=== PATIENT | male | born 1950 | race Caucasian/White ===

== ENCOUNTER 2020-07-27 10:08 | Inpatient (IN) ==
[2020-07-27] MEDS ORDERED: IPRATROPIUM/ALBUTEROL 3 ML AMPUL.NEB NEB ONE ×2 (10:18→12:59)
[2020-07-27] MEDS ORDERED: methylPREDNISolone SOD SUCC 125 MG/2 ML VIAL IV ONE (10:18)
[2020-07-27] MEDS ORDERED: ALBUTEROL SULFATE 2.5 MG/3 ML NEBULIZER NEB ONE (10:18)
--- NOTE | 2020-07-27 10:25 | Emergency Department Note ---
SOB HPI General Chief Complaint: Shortness of Breath/Dyspnea Stated Complaint: shortness of breath Time Seen by Provider: 07/27/20 10:18 Source: patient Mode of arrival: ambulatory Limitations: no limitations History of Present Illness HPI Narrative: Patient is a 70-year-old gentleman who arrives emergency department complaining of shortness of breath. The patient says he has been feeling short of breath since yesterday. This is gradual in onset and has been progressively worsening. He has had a productive cough and pleuritic chest pain associated with this. He denies any fever or chills. He has had similar symptoms in the past due to his COPD. He tried using his home nebulizer without any improvement in his symptoms and due to the worsening nature of his symptoms he decided to come in for further evaluation. He has received both doses of his Covid vaccine. Related Data Allergies Allergy/AdvReac Type Severity Reaction Status Date / Time No Known Drug Allergies Allergy Verified 07/27/20 10:16 Review of Systems ROS ROS Narrative: Narrative: All systems ED: reviewed and negative except as stated. Gastrointestinal: Denies abdominal pain, nausea and diarrhea PFSH Narrative Patient History Narrative: Narrative: Medical/Surgical/Family History All Active Problems (Updated 07/27/20 @ 16:58 by Elijah Shi DO) Community acquired pneumonia (Acute) Medical History (Updated 07/27/20 @ 16:58 by Elijah Shi DO) COPD (chronic obstructive pulmonary disease) Social History Smoking Status: Former smoker Alcohol Intake Frequency: former alcohol drinker Substance Use: marijuana Exam Narrative Narrative: Gen -patient is awake and alert and in moderate distress. HEENT -head is atraumatic. There is no conjunctival pallor or scleral icterus. CV -S1-S2 tachycardic and regular. Peripheral pulses are palpable. Resp -breathing is moderately labored while on supplemental oxygen via simple mask. Patient has tachypnea and accessory muscle use and is only able to speak a few words at a time. Lungs have diminished air entry bilaterally. There is no cyanosis. GI - Abdomen is soft and nontender to palpation. There is no guarding or rebound tenderness. Derm -skin is warm and dry. MSK -present extremities are atraumatic. Psych -patient has appropriate affect. Neuro -patient answers questions appropriately with fluent speech. Patient moves all present extremities equally. General Limitations: no limitations Course Vital Signs Vital signs: Vital Signs Temperature 99.4 F H 07/27/20 10:09 Pulse Rate 135 H 07/27/20 10:09 Respiratory Rate 38 H 07/27/20 10:09 Blood Pressure 202/157 07/27/20 10:09 Pulse Oximetry (%) 87 L 07/27/20 10:09 Temperature 99.4 F H 07/27/20 10:09 Pulse Rate 99 H 07/27/20 15:51 Respiratory Rate 28 H 07/27/20 15:51 Blood Pressure 96/67 07/27/20 15:01 Pulse Oximetry (%) 96 07/27/20 15:51 MDM MDM Narrative Medical decision making narrative: Patient presents with shortness of breath. He initially had significantly increased work of breathing so he started on BiPAP and given inline nebulizer treatments with significant improvement in his symptoms. He was then taken off BiPAP remains somewhat tachypneic but appears comfortable and stable from a respiratory standpoint at that time. X-ray reve als a large upper lobe infiltrate. Labs remarkable for leukocytosis. Patient was started on Rocephin and azithromycin for community-acquired pneumonia. Given his dog's diagnosis of coccidiomycosis and the fact that he does have an upper lobe infiltrate I also added fluconazole for possible Coccidioides coverage. Patient does not have any known risk factors for tuberculosis other than a brief trip to [facility] earlier this year. I discussed the test results with the patient and he is agreeable with plan for admission. I discussed the patient's history examination and diagnostic findings with Dr. Saucedo, who agrees with the plan of care and accepts admission. Critical care time I provided at least 35 minutes of critical care time. This was separate from any separately billable procedures. The patient was given supplemental oxygen to treat his hypoxemic respiratory failure. He was placed on bilevel positive pressure ventilation and this was titrated due to his increased work of breathing. He was given IV antibiotics and antifungals to treat the cause of pneumonia and IV fluids to treat sepsis. The patient was closely monitored for response to treatment and stability of vital signs throughout their emergency department stay. Lab Data Lab results reviewed: Yes I reviewed the patient's lab results. Result diagrams: 07/27/20 10:30 Labs: Lab Results 07/27/20 07/27/20 07/27/20 Range/Units 10:29 10:29 10:29 WBC (4.5-11.0) K/mcL RBC (4.50-5.90) M/mcL Hgb (13.5-16.5) g/dL Hct (41.0-55.0) % POC Hct 53 (41-55) % MCV (80.0-100.0) fL MCH (26.0-34.0) pg MCHC (31.0-36.0) g/dL RDW (11.5-14.5) % Plt Count (140-440) K/mcL MPV (7.4-10.4) fL Neut % (Auto) (38.0-78.0) % Lymph % (Auto) (15.0-49.0) % Clare % (Auto) (1.0-12.0) % Eos % (Auto) (0.0-7.0) % Baso % (Auto) (0.0-2.0) % Lymph # (Auto) (1.50-4.80) K/mcL Clare # (Auto) (0.10-0.90) K/mcL Eos # (Auto) (0.00-0.70) K/mcL Baso # (Auto) (0.00-0.20) K/mcL Absolute Neutrophils (1.80-8.00) K/mcL POC Sodium 134 (133-145) mEq/L POC Potassium 4.4 (3.3-5.1) mEql/L POC Chloride 96 (96-108) mEq/L POC Total CO2 32 H (22-30) mmol/L POC BUN 34 H (6-20) mg/dL POC Creatinine 1.1 (0.6-1.2) mg/dL POC Glucose 100 (70-105) mg/dL POC WB Ioniz Calcium 1.16 (1.16-1.32) mmEq/L Troponin T < 0.01 (<0.03) ng/mL C-Reactive Protein 34.60 H (0.03-0.80) mg/dL Procalcitonin (<0.10) ng/mL 07/27/20 07/27/20 Range/Units 10: 10:30 WBC 28.5 H (4.5-11.0) K/mcL RBC 5.04 (4.50-5.90) M/mcL Hgb 16.2 (13.5-16.5) g/dL Hct 49.2 (41.0-55.0) % POC Hct (41-55) % MCV 97.6 (80.0-100.0) fL MCH 32.1 (26.0-34.0) pg MCHC 32.9 (31.0-36.0) g/dL RDW 15.4 H (11.5-14.5) % Plt Count 364 (140-440) K/mcL MPV 10.8 H (7.4-10.4) fL Neut % (Auto) 86.9 H (38.0-78.0) % Lymph % (Auto) 5.2 L (15.0-49.0) % Clare % (Auto) 7.6 (1.0-12.0) % Eos % (Auto) 0.1 (0.0-7.0) % Baso % (Auto) 0.2 (0.0-2.0) % Lymph # (Auto) 1.48 L (1.50-4.80) K/mcL Clare # (Auto) 2.16 H (0.10-0.90) K/mcL Eos # (Auto) 0.04 (0.00-0.70) K/mcL Baso # (Auto) 0.07 (0.00-0.20) K/mcL Absolute Neutrophils 24.70 H (1.80-8.00) K/mcL POC Sodium (133-145) mEq/L POC Potassium (3.3-5.1) mEql/L POC Chloride (96-108) mEq/L POC Total CO2 (22-30) mmol/L POC BUN (6-20) mg/dL POC Creatinine (0.6-1.2) mg/dL POC Glucose (70-105) mg/dL POC WB Ioniz Calcium (1.16-1.32) mmEq/L Troponin T (<0.03) ng/mL C-Reactive Protein (0.03-0.80) mg/dL Procalcitonin 8.90 H (<0.10) ng/mL ED POC Tests ED POC Tests: ZAFAR - SARS Antigen Negative EKG Data EKG #1: EKG attestation: Yes I reviewed and interpreted this EKG. EKG results narrative: Sinus rhythm, rate 126. Peaked P waves. Right axis deviation. T waves are diffusely flattened. No ST segment deviation. Normal UT QRS and QTc duration. No old EKG immediately available for c omparison. EKG was interpreted by me. Discharge Plan Patient/Caregiver Discharge Instructions Pt seen by FOLDER HAND/PA only: No Clinical Impression: Community acquired pneumonia Patient Disposition: Xfer As Inpt ([facility]) Condition: Fair Discharge Date/Time: 07/27/20 14:44
[2020-07-27 10:43] LABS: POC Blood Urea Nitrogen 34 mg/dL (6-20); POC CO2 32 mmol/L (22-30); POC Calcium, Ionized 1.16 mmEq/L (1.16-1.32); POC Chloride 96 mEq/L (96-108); POC Creatinine 1.1 mg/dL (0.6-1.2); POC Glucose, Random 100 mg/dL (70-105); POC Hematocrit 53 % (41-55); POC Potassium 4.4 mEql/L (3.3-5.1); POC Sodium 134 mEq/L (133-145)
[2020-07-27 10:59] LABS: Basophils # (Auto) 0.07 K/mcL (0.00-0.20); Basophils % (Auto) 0.2 % (0.0-2.0); Eosinophils # (Auto) 0.04 K/mcL (0.00-0.70); Eosinophils % (Auto) 0.1 % (0.0-7.0); Hematocrit 49.2 % (41.0-55.0); Hemoglobin 16.2 g/dL (13.5-16.5); Lymphocytes # (Auto) 1.48 K/mcL (1.50-4.80); Lymphocytes % (Auto) 5.2 % (15.0-49.0); Mean Cell Volume 97.6 fL (80.0-100.0); Mean Corpuscular HGB Conc 32.9 g/dL (31.0-36.0); Mean Platelet Volume 10.8 fL (7.4-10.4); Monocytes # (Auto) 2.16 K/mcL (0.10-0.90); Monocytes % (Auto) 7.6 % (1.0-12.0); Neutrophils % (Auto) 86.9 % (38.0-78.0); Platelet Count 364 K/mcL (140-440); RBC 5.04 M/mcL (4.50-5.90); Red Cell Distribution Width 15.4 % (11.5-14.5); WBC 28.5 K/mcL (4.5-11.0)
[2020-07-27] MEDS ORDERED: cefTRIAXone 1 GM VIAL IV ONE (11:36)
[2020-07-27] MEDS ORDERED: FLUCONAZOLE 400 MG/200 ML BAG IV ONE (11:37)
[2020-07-27] MEDS ORDERED: AZITHROMYCIN 500 MG in DEXTROSE 5% IN WATER 250 ML IV ONE (11:41)
[2020-07-27] MEDS ORDERED: LACTATED RINGERS 1,000 ML IV ONE (11:41)
--- NOTE | 2020-07-27 11:49 | XRay Report ---
CLINICAL INFORMATION: dyspnea COMPARISON: None. FINDINGS: The heart is normal in size. A large consolidated infiltrate versus infiltrate-like mass is seen throughout the left upper lobe. Small patchy infiltrate is also seen in the right upper lobe. Moderate underlying COPD noted. Small left pleural effusion appreciated IMPRESSION: 1. Large infiltrate versus infiltrate-like mass throughout the left upper lobe. Left hilar adenopathy noted. Suggest: treatment for pneumonia and repeat two-view chest x-ray in 2-3 weeks. If there is persistent density in this region, the patient will require chest CT to evaluate for pulmonary malignancy. 2. Small patchy right upper lobe infiltrate 3. Moderate COPD Interpreted and Authenticated by: Romain Pittman 07/27/20
--- NOTE | 2020-07-27 13:45 | Internal Med History&Physical ---
HPI History of Present Illness Patient information: Note initiated : 07/27/20 at 1:37 pm Service Date, if different from initiated Date: [] Patient: Celestine Beatty a 70 y/o M admitted on for shortness of breath. Chief Complaint: [] History of present illness: Mr. Beatty is a 70 year old M active smoker and with a history of COPD nonoxygen dependent was fairly independent and was living in [facility] since late last year. He has visited [place] couple of times during the last 6 months. [place]. Over the last 4 days he has noted increasing shortness of breath/weakness/increasing yellow productive sputum, chills and sweats. He became increasing concerned about his symptoms and presented to the ER. He endorses to his dog being sick with [place] fever. He was noted with gland swelling around the neck and has been on treatment for the last 7 months. Initial work-up in the ER was consistent with severe sepsis/hypoxic respiratory failure requiring oxygen mask to maintain sats. He was started on noninvasive ventilation due to increased work of breathing and inability to talk. Patient responded to bronchodilators, antibiotics/antifungals were initiated after cultures were drawn. Hospitalist service was consulted for admission At the time of my evaluation patient is very anxious, distressed unable to talk in full sentences. He was able to endorse history as above. He denies sick contacts. He denies weight loss, hemoptysis, glandular swelling. Continues to actively smoke a pack a day. Additionally denies diarrhea, dysuria, joint swelling or rash Review of systems 10 point review system was performed and is negative except for ones discussed above PFSH PFSH All Active Problems (Updated 07/27/20 @ 17:59 by Zain Bridges MD) COPD (chronic obstructive pulmonary disease) (Acute) Community acquired pneumonia (Acute) Medical History COPD (chronic obstructive pulmonary disease) Social History (Updated 07/27/20 @ 17:55 by Zain Bridges MD) household members: spouse lives independently: Yes marital status: occupational status: retired occupation: Retired from [employer] in [employer]. pets and animals: Yes (1 dog.) pets and animals: dog(s) smoking status: Current every day smoker alcohol intake frequency: former alcohol drinker substance use type: marijuana MEDS/ALLERGIES Home Medications and Allergies Home Medications Medication Instructions Recorded Confirmed Type albuterol sulfate 2 puff INHALATION Q4H PRN 07/27/20 07/27/20 History budesonide-formoterol [Symbicort] 1 puff INHALATION QDAY 07/27/20 07/27/20 History fluticasone furoate-vilanterol 1 inh INHALATION QDAY 07/27/20 07/27/20 History [Breo Ellipta] gabapentin 300 mg PO QDAY 07/27/20 07/27/20 History ipratropium-albuterol 3 ml INHALATION Q4H PRN 07/27/20 07/27/20 History prednisone 10 mg PO BID 07/27/20 07/27/20 History simvastatin 5 mg PO QDAY 07/27/20 07/27/20 History Allergies Allergy/AdvReac Type Severity Reaction Status Date / Time fluoxetine [From [facility]] AdvReac Severe suicidal Verified 07/27/20 17:45 ideation EXAM Constitutional Vitals: Temp Pulse Resp BP Pulse Ox 99.4 F H 100 H 26 H 100/69 99 07/27/20 10:09 07/27/20 13:19 07/27/20 13:19 07/27/20 13:11 07/27/20 13:17 Anxious, distressed elderly Head normocephalic Oral cavity dry No ear or nose discharge Eye no subconjunctival pallor, movement symmetrical S1-S2 tachycardia Barrel chested, extremely labored breathing on noninvasive ventilation Nondistended scaphoid nontender abdomen Lower extremity no cyanosis clubbing or joint swelling Skin no suspicious lesion Psych anxious but no hallucination Neuro normal higher function on limited neuro exam DATA Data Completed and Pending Labs: Labs from last 24 hours 07/27/20 07/27/20 07/27/20 10:30 10:29 10:29 WBC 28.5 H RBC 5.04 Hgb 16.2 Hct 49.2 POC Hct 53 MCV 97.6 MCH 32.1 MCHC 32.9 RDW 15.4 H Plt Count 364 MPV 10.8 H Neut % (Auto) 86.9 H Lymph % (Auto) 5.2 L Mcdowell % (Auto) 7.6 Eos % (Auto) 0.1 Baso % (Auto) 0.2 Lymph # (Auto) 1.48 L Mcdowell # (Auto) 2.16 H Eos # (Auto) 0.04 Baso # (Auto) 0.07 Absolute Neutrophils 24.70 H POC Sodium 134 POC Potassium 4.4 POC Chloride 96 POC Total CO2 32 H POC BUN 34 H POC Creatinine 1.1 POC Glucose 100 POC WB Ioniz Calcium 1.16 Troponin T < 0.01 A/P Narrative A/P Narrative: * Left upper lobe pneumonia/mass lesion. History of exposure to valley fever. Check sputum Gram stain/fungal and bacterial cultures, coccidioidomycosis complement fixation/immunodiffusion. ID consult. Empiric broad-spectrum antibiotic coverage * Acute hypoxic respiratory failure-secondary above. Increased work of breathing and high risk decompensation, initiate noninvasive ventilation, ABG * Severe sepsis with endorgan dysfunction-management per guidelines, pancultures, antibiotics * COPD exacerbation continue bronchodilators/steroids/supplemental oxygen/pulmonary toilet * Hyperlipidemia continue statin * neuropathy continue gabapentin * History of tobacco smoking dependence * Prophylaxis Heparin Plan * ICU admission * Noninvasive mechanical ventilation * Sepsis management per guidelines * Supplemental oxygen * ID consult * Bronchodilators/steroids * PT OT nutrition support Time Spent With Patient Time: Critical care time spent on management of hypoxia respiratory failure/noninvasive mechanical ventilation in excess of 35 minutes in addition to time spent on history physical
[2020-07-27] MEDS ORDERED: ONDANSETRON 4 MG ODT TABLET SL PRN (14:40)
[2020-07-27] MEDS ORDERED: BISACODYL 10 MG SUPP.RECT PR PRN (14:40)
[2020-07-27] MEDS ORDERED: ACETAMINOPHEN 325 MG TABLET PO PRN (14:40)
[2020-07-27] MEDS ORDERED: VANCOMYCIN PER PHARMACY IV SCH (14:40)
[2020-07-27] MEDS ORDERED: CEFEPIME 2 GM in DEXTROSE 5% IN WATER 50 ML IV SCH (14:40)
[2020-07-27] MEDS ORDERED: POTASSIUM CHLORIDE 40 MEQ in DEXTROSE 5% IN WATER 500 ML IV PRN (14:40)
[2020-07-27] MEDS ORDERED: ONDANSETRON 4 MG/2 ML VIAL IV PRN (14:40)
[2020-07-27] MEDS ORDERED: POLYETHYLENE GLYCOL 3350 17 GM PACKET PO PRN (14:40)
[2020-07-27] MEDS ORDERED: MAGNESIUM SULFATE 2 GM/50 ML BAG IV PRN (14:40)
[2020-07-27] MEDS ORDERED: MELATONIN 3 MG TABLET PO PRN (14:40)
[2020-07-27] MEDS ORDERED: guaiFENesin/CODEINE 10 ML UDC PO PRN (14:40)
[2020-07-27] MEDS ORDERED: POTASSIUM CHLORIDE 20 MEQ PACKET PO PRN (14:40)
[2020-07-27] MEDS ORDERED: ACETAMINOPHEN 650 MG/65 ML BAG IV PRN (14:40)
[2020-07-27] MEDS ORDERED: 0.9 % SODIUM CHLORIDE 1,000 ML IV SCH (14:40)
[2020-07-27] MEDS: CEFEPIME 2 GM VIAL IV SCH ×2 (15:22→23:40)
[2020-07-27] MEDS: 0.9 % SODIUM CHLORIDE 10 ML SYRINGE IV SCH ×2 (15:26→20:54)
[2020-07-27] MEDS: 0.9 % SODIUM CHLORIDE 1,000 ML IV SCH (15:27)
[2020-07-27] MEDS ORDERED: NICOTINE 21 MG PATCH TOPICAL ONE (15:29)
--- NOTE | 2020-07-27 16:04 | EKG ---
[facility] Test Date: 2020-07-27 Pat Name: Celestine Beatty Department: ED Room: Gender: Male [employer]: : 1950 Requested By: Elijah Shi Order Number: [id number] Reading MD: Errol Concepcion M.D. Measurements Intervals [place] Rate: 126 P: 97 TN: 109 QRS: -74 QRSD: 93 T: 86 QT: 330 QTc: 478 Interpretive Statements Sinus tachycardia LAE, consider biatrial enlargement Left anterior fascicular block Right ventricular hypertrophy Borderline T abnormalities, anterior leads Borderline prolonged QT interval Baseline wander in lead(s) V3 NO PRIOR TRACING FOR COMPARISON Electronically Signed On 07-27-2020 16:04:06 PDT by Errol Concepcion M.D. /store/[email or web address]/[id number]
--- NOTE | 2020-07-27 17:59 | Infectious Disease Consult ---
HPI Data of Consult Primary Care Provider: PCP No Consult Narrative Patient Information: Note initiated : 07/27/20 at 5:45 pm Service Date, if different from initiated Date: [July 27, 2020] Patient: Celestine Beatty 70 y/o M admitted on 07/27/20 for shortness of breath. Chief Complaint: [] Darren is a 70-year-old man who was admitted today with symptom onset of shortness of breath 4 days ago. He had subjective fevers and chills for the past 2 days. He has underlying COPD and continues to smoke tobacco. He does not use nasal cannula O2 at home. He was severely dyspneic upon admission. Admit white count 28.5 with a platelet count of 364 86% segs. He returned from [place] 10 weeks ago. He reports that his dog has received treatment for valley fever. He has been vaccinated for Covid. actually had Covid January 2020. He is also traveled to [place] in April. No known TB exposure. His weight is 59 kg. He reports that his weight is stable. He does have a productive cough of greenish sputum. No hemoptysis. He has received antibiotics 4 times in the last year for bronchitis. He did have a pneumonia on one previous occasion when going to [place] last fall. Dr. Mcdowell asked for consultation to assist with antibiotic recommendations. He received Rocephin and azithromycin and fluconazole in the emergency department. He is currently on cefepime 2 g twice daily and vancomycin. No known history of MRSA. Chest x-ray has shown a left upper lobe pneumonia. cc:: CC: Allen Saucedo Review of Systems Review of systems: General: Subjective fevers and chills beginning 2 days ago. HEENT: No headache or sore throat. No neck complaints. Pulmonary: As above. Positive productive cough. Cardiac: No history of heart murmur. GI: No abdominal pain or diarrhea. He is currently eating well hamburger and Romanian fries dessert. no dysuria. History of vasectomy. Extremities no edema. Patient has a previous history of right shoulder surgery and left total shoulder reverse arthroplasty. Skin without rash. Neurologic: No headache. PFSH PFSH All Active Problems (Updated 07/27/20 @ 17:59 by Zain Bridges MD) COPD (chronic obstructive pulmonary disease) (Acute) Community acquired pneumonia (Acute) Medical History COPD (chronic obstructive pulmonary disease) Social History (Updated 07/27/20 @ 17:55 by Zain Bridges MD) household members: spouse lives independently: Yes marital status: occupational status: retired occupation: Retired from [employer] in [employer]. pets and animals: Yes (1 dog.) pets and animals: dog(s) smoking status: Current every day smoker alcohol intake frequency: former alcohol drinker substance use type: marijuana MEDS/ALLERGIES Home Medications and Allergies Allergies Allergy/AdvReac Type Severity Reaction Status Date / Time fluoxetine [From Prozac] AdvReac Severe suicidal Verified 07/27/20 17:45 ideation Physical Examination Vital Signs Vital signs: Temp Pulse Resp BP Pulse Ox 98.7 F 99 H 24 H 110/70 98 07/27/20 16:00 07/27/20 15:51 07/27/20 17:02 07/27/20 17:01 07/27/20 17:02 Additional Exam Additional exam: General: He does appear short of breath. He was able to produce sputum with cough. Nasal cannula in place. He has difficulty completing full sentences. HEENT: Appetite good. EOMI PERRL sclera anicteric. Neck is supple. Lungs: Left upper rhonchi. Wheezing on right. Heart: Regular rate and rhythm without murmur. Abdomen: Soft nontender. Extremities without edema or rash. Results Laboratory Findings CBC and BMP: 07/27/20 10:30 Abnormal lab findings: Abnormal Labs 07/27/20 07/27/20 07/27/20 10:29 10:29 10:29 WBC RDW MPV Neut % (Auto) Lymph % (Auto) Lymph # (Auto) Blaine # (Auto) Absolute Neutrophils POC Total CO2 32 H POC BUN 34 H C-Reactive Protein 34.60 H Procalcitonin 8.90 H 07/27/20 10:30 WBC 28.5 H RDW 15.4 H MPV 10.8 H Neut % (Auto) 86.9 H Lymph % (Auto) 5.2 L Lymph # (Auto) 1.48 L Blaine # (Auto) 2.16 H Absolute Neutrophils 24.70 H POC Total CO2 POC BUN C-Reactive Protein Procalcitonin Microbiology: Microbiology 07/27/20 14:27 Nasopharynx SARS-CoV-2, Influenza & RSV (PCR) - Final White count 28.5 platelet count 364 creatinine 1.1. T-max 99.4 current temp 98.7. Chest x-ray reviewed left upper lobe infiltrate. A/P Assessment and plan (1) COPD (chronic obstructive pulmonary disease): Status: Acute Comment: Darren is a 70-year-old man with COPD. He was admitted today for left upper lobe pneumonia. Onset began approximately 4 days ago. This seems to be consistent with community-acquired pneumonia. Sputum to be sent for bacteria, fungal, and AFB. Although a dose of Diflucan was provided in the emergency department, I do not believe that we need to continue Diflucan at this time empirically for valley fever. Cocci serologies have been submitted. Sputum to be sent not only for bacteria, but also AFB and fungus. Quant gold for TB to be submitted. A mycoplasma IgM has also been sent. Patient has been started on Solu-Medrol 40 mg twice daily. (2) Community acquired pneumonia: Status: Acute Comment: Follow-up on sputum Gram stain culture and sensitivity. A MRSA screen to be completed. Patient is currently receiving IV cefepime plus vancomycin. Vancomycin may be discontinued if MRSA screen negative. Patient has no previous history of MRSA. Thank you for allowing me to be involved in Darren's consultative care. Further choice and duration of treatment to be determined based on sputum culture results. Time Spent With Patient Time: Total time spent is greater than 50% in coordination of care (as documented) at patient's floor/unit and/or counseling patient:
[2020-07-27] MEDS: HEPARIN 5,000 UNIT/ML VIAL SQ SCH (20:54)
[2020-07-27] MEDS: DOCUSATE SODIUM 100 MG CAPSULE PO SCH ×2 (20:54→21:18)
[2020-07-27] MEDS: VANCOMYCIN 1,000 MG in 0.9 % SODIUM CHLORIDE 250 ML IV SCH (20:54)
[2020-07-27] MEDS: methylPREDNISolone SOD SUCC 40 MG/ML VIAL IV SCH (20:54)
[2020-07-27] MEDS: SENNOSIDES/DOCUSATE SODIUM 1 TAB TABLET PO SCH ×2 (20:54→21:18)
[2020-07-28] MEDS: 0.9 % SODIUM CHLORIDE 10 ML SYRINGE IV SCH ×3 (05:24→21:04)
[2020-07-28 06:44] LABS: Basophils # (Auto) 0.03 K/mcL (0.00-0.20); Basophils % (Auto) 0.1 % (0.0-2.0); Eosinophils # (Auto) 0 K/mcL (0.00-0.70); Eosinophils % (Auto) 0 % (0.0-7.0); Hemoglobin 11.9 g/dL (13.5-16.5); Lymphocytes # (Auto) 0.42 K/mcL (1.50-4.80); Lymphocytes % (Auto) 1.7 % (15.0-49.0); Mean Corpuscular HGB Conc 33.1 g/dL (31.0-36.0); Mean Platelet Volume 10.9 fL (7.4-10.4); Monocytes # (Auto) 0.99 K/mcL (0.10-0.90); Monocytes % (Auto) 4.1 % (1.0-12.0); Neutrophils % (Auto) 94.1 % (38.0-78.0); Platelet Count 255 K/mcL (140-440); RBC 3.71 M/mcL (4.50-5.90); Red Cell Distribution Width 15.5 % (11.5-14.5)
[2020-07-28 07:04] LABS: ALT/SGPT 7 U/L (<40); AST/SGOT 14 U/L (<40); Albumin 2.6 gm/dL (3.2-5.2); Albumin/Globulin Ratio 0.9 (1.0-2.3); Alkaline Phosphatase 59 U/L (39-117); Bilirubin,Direct < 0.2 mg/dL (0-0.3); Bilirubin,Total 0.2 mg/dL (0.1-1.0); Blood Urea Nitrogen 25 mg/dL (8-23); Calcium 7.9 mg/dL (8.6-10.4); Carbon Dioxide 25 mmol/L (22-30); Chloride 104 mmol/L (96-108); Globulin 2.9 gm/dL (2.2-3.7); Glomerular Filtration Rate 97; Glucose 156 mg/dL (70-105); Lactate Dehydrogenase 156 U/L (135-225); Phosphorous 2.6 mg/dL (2.5-4.5); Triglycerides 77 mg/dL (<150); Uric Acid 4.6 mg/dL (2.5-8.0)
[2020-07-28] MEDS: IPRATROPIUM/ALBUTEROL 3 ML AMPUL.NEB NEB SCH ×5 (08:15→23:06)
[2020-07-28] MEDS ORDERED: THIAMINE 100 MG TABLET PO SCH (09:00)
[2020-07-28] MEDS ORDERED: MULTIVIT,THER IRON,CA,FA & MIN 1 TABLET PO SCH (09:00)
[2020-07-28] MEDS: VANCOMYCIN 1,000 MG in 0.9 % SODIUM CHLORIDE 250 ML IV SCH (09:02)
[2020-07-28] MEDS: CEFEPIME 2 GM VIAL IV SCH ×2 (09:02→21:03)
[2020-07-28] MEDS ORDERED: AZITHROMYCIN 500 MG in DEXTROSE 5% IN WATER 250 ML IV SCH (10:00)
[2020-07-28] MEDS ORDERED: NICOTINE 21 MG PATCH TOPICAL SCH (10:00)
[2020-07-28] MEDS: DOCUSATE SODIUM 100 MG CAPSULE PO SCH ×2 (10:21→20:20)
[2020-07-28] MEDS: methylPREDNISolone SOD SUCC 40 MG/ML VIAL IV SCH (10:28)
[2020-07-28] MEDS: HEPARIN 5,000 UNIT/ML VIAL SQ SCH ×2 (10:28→21:03)
--- NOTE | 2020-07-28 11:06 | Internal Med Progress Note ---
SUBJECTIVE Subjective Patient information: Note initiated : 07/28/20 at 11:02 am Service Date, if different from initiated Date: [] Patient: Celestine Beatty 70 y/o M admitted on 07/27/20 for shortness of breath. Chief Complaint: [] Interval history: History of present illness: Mr. Beatty is a 70 year old M active smoker and with a history of COPD nonoxygen dependent was fairly independent and was living in [facility] since late last year. He has visited [place] couple of times during the last 6 months. He moved back [place] the [place] after [place]. Over the last 4 days he has noted increasing shortness of breath/weakness/increasing yellow productive sputum, chills and sweats. He became increasing concerned about his symptoms and presented to the ER. He endorses to his dog being sick with [place] fever. He was noted with gland sw elling around the neck and has been on treatment for the last 7 months. Initial work-up in the ER was consistent with severe sepsis/hypoxic respiratory failure requiring oxygen mask to maintain sats. He was started on noninvasive ventilation due to increased work of breathing and inability to talk. Patient responded to bronchodilators, antibiotics/antifungals were initiated after cultures were drawn. Hospitalist service was consulted for admission At the time of my evaluation patient is very anxious, distressed unable to talk in full sentences. He was able to endorse history as above. He denies sick contacts. He denies weight loss, hemoptysis, glandular swelling. Continues to actively smoke a pack a day. Additionally denies diarrhea, dysuria, joint swelling or rash 07/28-patient doing better since previous day. Currently on noninvasive ventilation. White count downtrending to 24 from 48.5, creatinine improved to 0.7, improving endorgan dysfunction. Stable hemodynamics. Requiring 30% FiO2 to maintain sats 92%. Ongoing bronchodilators/steroids. MRSA nasal swab negative. Vancomycin discontinued. Continue cefepime. ID on board. Constitutional Vitals: Vital Signs Temp Pulse Resp BP Pulse Ox 97.4 F 96 H 19 117/78 94 07/28/20 08:00 07/28/20 08:22 07/28/20 10:52 07/28/20 10:01 07/28/20 10:52 Period Temp Pulse Resp BP Sys/Mcclendon Pulse Ox Last 24 Hr 97.2 F-98.7 F 80-113 15-40 89-162/61-147 87-99 Intake and Output 07/27/20 07/28/20 07/28/20 21:59 05:59 13:59 Intake Total 1440 250 550 Output Total 500 575 Balance 940 -325 550 Weight 56.699 kg Alert oriented Labored breathing currently on noninvasive ventilation Barrel chest Bilateral rhonchi noted No lymphedema Intake & Output: Intake & Output 07/27/20 07/28/20 07/28/20 21:59 05:59 13:59 Intake Total 1440 250 550 Output Total 500 575 Balance 940 -325 550 Weight 56.699 kg Intake: IV 1200 250 250 Sodium Chloride 0.9% 1,000 ml @ 1000 Wide Open IV BOLUS [facility] Rx#: [id number] Vancomycin 1,000 mg In Sodium 250 250 Chloride 0.9% 250 ml @ 250 mls/ hr IV Q12H [facility] Rx#:[id number] Oral 240 300 Output: Void Amount 500 575 Other: Meal Dinner Percent of Meal Consumed 100% Urine Appearance Clear Clear Urine Color Straw Straw Urine Odor Strong OBJ DATA Labs CBC & Chem 7: 07/28/20 05:18 07/28/20 05:17 Labs: Abnormal Lab Results 07/28/20 07/28/20 07/27/20 05:18 05:17 10:30 WBC 24.0 H 28.5 H RBC 3.71 L Hgb 11.9 L Hct 36.0 L RDW 15.5 H 15.4 H MPV 10.9 H 10.8 H Neut % (Auto) 94.1 H 86.9 H Lymph % (Auto) 1.7 L 5.2 L Lymph # (Auto) 0.42 L 1.48 L [place] # (Auto) 0.99 H 2.16 H Absolute Neutrophils 22.58 H 24.70 H POC Total CO2 Anion Gap 7.0 L POC BUN BUN 25 H Glucose 156 H Calcium 7.9 L C-Reactive Protein Total Protein 5.5 L Albumin 2.6 L Albumin/Globulin Ratio 0.9 L Procalcitonin 07/27/20 07/27/20 07/27/20 10:29 10:29 10:29 WBC RBC Hgb Hct RDW MPV Neut % (Auto) Lymph % (Auto) Lymph # (Auto) [place] # (Auto) Absolute Neutrophils POC Total CO2 32 H Anion Gap POC BUN 34 H BUN Glucose Calcium C-Reactive Protein 34.60 H Total Protein Albumin Albumin/Globulin Ratio Procalcitonin 8.90 H Meds: Medications Acetaminophen (Acetaminophen 325 Mg Tablet) 650 mg PO Q4-6HP PRN; Protocol PRN Reason: Per Pain Protocol/Fever > 101 Albuterol/Ipratropium (Ipratropium/Albuterol 3 Ml Ampul.Neb) 3 ml NEB Q4HRT [facility] Last Admin: 07/28/20 10:53 Dose: 3 ml Documented by: Bisacodyl (Bisacodyl 10 Mg Supp.Rect) 10 mg [place] Q2-3DAYS PRN PRN Reason: Constipation Cefepime HCl (Cefepime 2 Gm Vial) 2 gm IV Q12H [facility] Last Admin: 07/28/20 09:02 Dose: 2 gm Documented by: Docusate Sodium (Docusate Sodium 100 Mg Capsule) 100 mg PO BID [facility] Last Admin: 07/28/20 10:21 Dose: Not Given Documented by: Gabapentin (Gabapentin 300 Mg Capsule) 300 mg PO QDAY [facility] Guaifenesin/Codeine Phosphate (Guaifenesin/Codeine 10 Ml Udc) 10 ml PO Q4HP PRN PRN Reason: Cough Last Admin: 07/27/20 18:39 Dose: 10 ml Documented by: Heparin Sodium (Porcine) (Heparin 5,000 Unit/Ml Vial) 5,000 unit SQ Q12 [facility] Last Admin: 07/28/20 10:28 Dose: 5,000 unit Documented by: Potassium Chloride 40 meq/ (Dextrose) 520 mls @ 130 mls/hr IV UD PRN PRN Reason: K+ = or < 3.5 Acetaminophen (Ofirmev) 650 mg in 65 mls @ 130 mls/hr IV Q6HP PRN; Protocol PRN Reason: Per Pain Protocol/Fever > 101 Magnesium Sulfate (Magnesium Sulfate) 2 gm in 50 mls @ 50 mls/hr IV UD PRN PRN Reason: MG = or < 1.7 Sodium Chloride (Sodium Chloride 0.9%) 1,000 mls @ 50 mls/hr IV .Q20H [facility] Stop: 07/30/20 02:39 Last Admin: 07/27/20 15:27 Dose: 50 mls/hr Documented by: Azithromycin 500 mg/ Dextrose 250 mls @ 250 mls/hr IV Q24H [facility]; Protocol Stop: 07/30/20 10:59 Last Admin: 07/28/20 10:28 Dose: 250 mls/hr Documented by: Iron Carb/Multivit/Casar/Folic Acid (Multivit,Ther Iron,Ca,Fa & Min 1 Tablet) 1 tab PO DAILY [facility] Last Admin: 07/28/20 10:28 Dose: 1 tab Documented by: Melatonin (Melatonin 3 Mg Tablet) 3 mg PO HSP PRN PRN Reason: Insomnia Last Admin: 07/27/20 20:54 Dose: 3 mg Documented by: Methylprednisolone Sodium Succinate (Methylprednisolone Sod Succ 40 Mg/Ml Vial) 40 mg IV Q12 [facility] Last Admin: 07/28/20 10:28 Dose: 40 mg Documented by: Nicotine (Nicotine 21 Mg Patch) 21 mg TOPICAL DAILY@1000 [facility] Last Admin: 07/28/20 10:28 Dose: 21 mg Documented by: Ondansetron HCl (Ondansetron 4 Mg Odt Tablet) 4 mg SL Q4-6HP PRN; Protocol PRN Reason: Nausea And Vomiting Ondansetron HCl (Ondansetron 4 Mg/2 Ml Vial) 4 mg IV Q4-6HP PRN; Protocol PRN Reason: Nausea And Vomiting Polyethylene Glycol (Polyethylene Glycol 3350 17 Gm Packet) 17 gm PO DAILYP PRN PRN Reason: Constipation Potassium Chloride (Potassium Chloride 20 Meq Packet) 40 meq PO DAILYP PRN PRN Reason: K+ < 3.5 Senna/Docusate Sodium (Sennosides/Docusate Sodium 1 Tab Tablet) 1 tab PO HS [facility] Last Admin: 07/27/20 21:18 Dose: Not Given Documented by: Simvastatin (Simvastatin 10 Mg Tablet) 5 mg PO QDAY [facility] Sodium Chloride (0.9 % Sodium Chloride 10 Ml Syringe) 10 ml IV Q8 [facility] Last Admin: 07/28/20 05:24 Dose: 10 ml Documented by: Thiamine HCl (Thiamine 100 Mg Tablet) 100 mg PO DAILY [facility] Last Admin: 07/28/20 10:28 Dose: 100 mg Documented by: A/P Narrative A/P Narrative: * Left upper lobe pneumonia-clinical improvement noted on antibiotic coverage. ID on board * Acute hypoxic respiratory failure-secondary above. On noninvasive mechanical ventilation. Wean as tolerated. * Severe sepsis with endorgan dysfunction-clinically improving with downtrending leukocytosis and improving endorgan dysfunction. Continue management per protocol. * COPD exacerbation -clinical improvement noted on bronchodilators/steroids/supplemental oxygen/pulmonary toilet * Hyperlipidemia continue statin * neuropathy continue gabapentin * History of tobacco smoking dependence * Prophylaxis Heparin Plan * Wean noninvasive mechanical ventilation as tolerated * Continue sepsis management per guidelines * Await serologies * Bronchodilators/steroids * PT OT nutrition support Time Spent With Patient Time: Critical care time spent in excess of 35 minutes QUALITY VTE Deep Vein Thrombosis/Pulmonary Embolism Present on Admission: No
[2020-07-28] MEDS ORDERED: POTASSIUM CHLORIDE 40 MEQ in DEXTROSE 5% IN WATER 500 ML IV PRN (13:01)
[2020-07-28] MEDS ORDERED: POTASSIUM CHLORIDE 20 MEQ PACKET PO PRN (13:01)
[2020-07-28] MEDS ORDERED: ONDANSETRON 4 MG ODT TABLET SL PRN (13:01)
[2020-07-28] MEDS ORDERED: guaiFENesin/CODEINE 10 ML UDC PO PRN (13:01)
[2020-07-28] MEDS ORDERED: POLYETHYLENE GLYCOL 3350 17 GM PACKET PO PRN (13:01)
[2020-07-28] MEDS ORDERED: ONDANSETRON 4 MG/2 ML VIAL IV PRN (13:01)
[2020-07-28] MEDS ORDERED: BISACODYL 10 MG SUPP.RECT PR PRN (13:01)
[2020-07-28] MEDS ORDERED: ACETAMINOPHEN 650 MG/65 ML BAG IV PRN (13:01)
[2020-07-28] MEDS ORDERED: MAGNESIUM SULFATE 2 GM/50 ML BAG IV PRN (13:01)
[2020-07-28] MEDS ORDERED: ACETAMINOPHEN 325 MG TABLET PO PRN (13:01)
[2020-07-28] MEDS: 0.9 % SODIUM CHLORIDE 1,000 ML IV SCH ×2 (13:04→13:35)
[2020-07-28] MEDS: SENNOSIDES/DOCUSATE SODIUM 1 TAB TABLET PO SCH (20:21)
[2020-07-28] MEDS ORDERED: methylPREDNISolone SOD SUCC 40 MG/ML VIAL IV SCH (21:00)
[2020-07-29] MEDS ORDERED: METOPROLOL TARTRATE 5 MG/5 ML VIAL IV ONE ×3 (02:55→06:22)
[2020-07-29] MEDS: METOPROLOL TARTRATE 5 MG/5 ML VIAL IV PRN ×3 (02:55→07:05)
[2020-07-29] MEDS: IPRATROPIUM/ALBUTEROL 3 ML AMPUL.NEB NEB SCH ×7 (03:23→23:03)
[2020-07-29] MEDS: 0.9 % SODIUM CHLORIDE 10 ML SYRINGE IV SCH ×3 (05:20→20:26)
--- NOTE | 2020-07-29 06:16 | Internal Med Progress Note ---
SUBJECTIVE Subjective Patient information: Note initiated : 07/29/20 at 6:09 am Service Date, if different from initiated Date: [] Patient: Celestine Beatty a 70 y/o M admitted on 07/27/20 for shortness of breath. Chief Complaint: [cough and shortness of breath] Darren is a 70-year-old man with COPD. He is currently hospital day 3 for treatment of left upper lobe pneumonia. He is currently on 1 L by nasal cannula. He feels that cough and shortness of breath is improving. He is currently day 3 IV cefepime. Vanco and azithromycin have been discontinued. He reports that he was walking yesterday. Productivity of greenish phlegm to his cough has also improved. He remains on 40 mg of IV Solu-Medrol twice daily. Constitutional Vitals: Vital Signs Afebrile at 98.2. Temp Pulse Resp BP Pulse Ox 98.2 F 128 H 20 100/73 94 07/29/20 04:00 07/29/20 03:00 07/29/20 03:00 07/29/20 05:53 07/29/20 05:55 Period Temp Pulse Resp BP Sys/Mcclendon Pulse Ox Last 24 Hr 97.4 F-98.4 F 86-128 15-41 85-137/63-93 89-100 Intake and Output 07/28/20 07/29/20 07/29/20 21:59 05:59 13:59 Intake Total 1300 Output Total 600 700 Balance 700 -700 Weight 57.243 kg Intake & Output: Intake & Output 07/28/20 07/29/20 07/29/20 21:59 05:59 13:59 Intake Total 1300 Output Total 600 700 Balance 700 -700 Weight 57.243 kg Intake: Oral 1300 Output: Void Amount 600 700 Other: Meal Dinner Percent of Meal Consumed 100% Urine Appearance Clear Clear Urine Color Pale Pale # Bowel Movements 1 Additional findings Additional findings: Generally: He is sitting up in bed. Appears moderately short of breath. Able to speak in partial sentences. HEENT: Nasal cannula in place. Mouth is moist. No lip ulcerations. Anicteric sclera. Neck is supple. Lungs: Bilateral expiratory wheezing. Heart: Tacky and irregular. I do not hear heart murmur. Abdomen soft. Extremities without edema or rash. OBJ DATA Labs CBC & Chem 7: 07/28/20 05:18 07/28/20 05:17 Labs: Abnormal Lab Results Blood cultures no growth to date. MRSA screen negative. White count down to 24 yesterday. Sputum from July 27 has revealed no pathogens but normal neelam seen on Gram stain with some slender gram-negative rods. 07/28/20 07/28/20 07/27/20 05:18 05:17 10:30 WBC 24.0 H 28.5 H RBC 3.71 L Hgb 11.9 L Hct 36.0 L RDW 15.5 H 15.4 H MPV 10.9 H 10.8 H Neut % (Auto) 94.1 H 86.9 H Lymph % (Auto) 1.7 L 5.2 L Lymph # (Auto) 0.42 L 1.48 L [place] # (Auto) 0.99 H 2.16 H Absolute Neutrophils 22.58 H 24.70 H POC Total CO2 Anion Gap 7.0 L POC BUN BUN 25 H Glucose 156 H Calcium 7.9 L C-Reactive Protein Total Protein 5.5 L Albumin 2.6 L Albumin/Globulin Ratio 0.9 L Procalcitonin 07/27/20 07/27/20 07/27/20 10:29 10:29 10:29 WBC RBC Hgb Hct RDW MPV Neut % (Auto) Lymph % (Auto) Lymph # (Auto) [place] # (Auto) Absolute Neutrophils POC Total CO2 32 H Anion Gap POC BUN 34 H BUN Glucose Calcium C-Reactive Protein 34.60 H Total Protein Albumin Albumin/Globulin Ratio Procalcitonin 8.90 H Meds: Medications Acetaminophen (Acetaminophen 325 Mg Tablet) 650 mg PO Q4-6HP PRN; Protocol PRN Reason: Per Pain Protocol/Fever > 101 Albuterol/Ipratropium (Ipratropium/Albuterol 3 Ml Ampul.Neb) 3 ml NEB Q4HRT [facility] Last Admin: 07/29/20 05:20 Dose: 3 ml Documented by: Bisacodyl (Bisacodyl 10 Mg Supp.Rect) 10 mg [place] Q2-3DAYS PRN PRN Reason: Constipation Cefepime HCl (Cefepime 2 Gm Vial) 2 gm IV Q12H [facility] Last Admin: 07/28/20 21:03 Dose: 2 gm Documented by: Docusate Sodium (Docusate Sodium 100 Mg Capsule) 100 mg PO BID [facility] Last Admin: 07/28/20 20:20 Dose: Not Given Documented by: Gabapentin (Gabapentin 300 Mg Capsule) 300 mg PO QDAY [facility] Guaifenesin/Codeine Phosphate (Guaifenesin/Codeine 10 Ml Udc) 10 ml PO Q4HP PRN PRN Reason: Cough Heparin Sodium (Porcine) (Heparin 5,000 Unit/Ml Vial) 5,000 unit SQ Q12 [facility] Last Admin: 07/28/20 21:03 Dose: 5,000 unit Documented by: Sodium Chloride (Sodium Chloride 0.9%) 1,000 mls @ 50 mls/hr IV .Q20H [facility] Stop: 07/30/20 02:39 Last Admin: 07/28/20 13:35 Dose: 50 mls/hr Documented by: Acetaminophen (Ofirmev) 650 mg in 65 mls @ 130 mls/hr IV Q6HP PRN; Protocol PRN Reason: Per Pain Protocol/Fever > 101 Azithromycin 500 mg/ Dextrose 250 mls @ 250 mls/hr IV Q24H [facility]; Protocol Stop: 07/29/20 10:59 Magnesium Sulfate (Magnesium Sulfate) 2 gm in 50 mls @ 50 mls/hr IV UD PRN PRN Reason: MG = or < 1.7 Potassium Chloride 40 meq/ (Dextrose) 520 mls @ 130 mls/hr IV UD PRN PRN Reason: K+ = or < 3.5 Iron Carb/Multivit/Angelina/Folic Acid (Multivit,Ther Iron,Ca,Fa & Min 1 Tablet) 1 tab PO DAILY [facility] Melatonin (Melatonin 3 Mg Tablet) 3 mg PO HSP PRN PRN Reason: Insomnia Methylprednisolone Sodium Succinate (Methylprednisolone Sod Succ 40 Mg/Ml Vial) 40 mg IV Q12 [facility] Last Admin: 07/28/20 21:04 Dose: 40 mg Documented by: Metoprolol Tartrate (Metoprolol Tartrate 5 Mg/5 Ml Vial) 5 mg IV Q5M PRN PRN Reason: Tachyarrhythmias Stop: 07/29/20 03:11 Last Admin: 07/29/20 05:44 Dose: 5 mg Documented by: Nicotine (Nicotine 21 Mg Patch) 21 mg TOPICAL DAILY@1000 [facility] Ondansetron HCl (Ondansetron 4 Mg Odt Tablet) 4 mg SL Q4-6HP PRN; Protocol PRN Reason: Nausea And Vomiting Ondansetron HCl (Ondansetron 4 Mg/2 Ml Vial) 4 mg IV Q4-6HP PRN; Protocol PRN Reason: Nausea And Vomiting Polyethylene Glycol (Polyethylene Glycol 3350 17 Gm Packet) 17 gm PO DAILYP PRN PRN Reason: Constipation Potassium Chloride (Potassium Chloride 20 Meq Packet) 40 meq PO DAILYP PRN PRN Reason: K+ < 3.5 Senna/Docusate Sodium (Sennosides/Docusate Sodium 1 Tab Tablet) 1 tab PO HS [facility] Last Admin: 07/28/20 20:21 Dose: Not Given Documented by: Simvastatin (Simvastatin 10 Mg Tablet) 5 mg PO QDAY [facility] Sodium Chloride (0.9 % Sodium Chloride 10 Ml Syringe) 10 ml IV Q8 [facility] Last Admin: 07/29/20 05:20 Dose: 10 ml Documented by: Thiamine HCl (Thiamine 100 Mg Tablet) 100 mg PO DAILY [facility] A/P Assessment and plan (1) COPD (chronic obstructive pulmonary disease): Status: Acute Comment: Darren is a 70-year-old man with COPD. He is currently hospital day 3 on IV cefepime and Solu-Medrol. He is currently on 1 L by nasal cannula. He reports improvement in cough and shortness of breath. Productivity to his cough has also improved. (2) Community acquired pneumonia: Status: Acute Comment: Blood cultures negative. Sputum culture has not been finalized. Maintain IV cefepime. De-escalate IV cefepime when sputum culture finalizes. Time Spent With Patient Time: Total time spent is greater than 50% in coordination of care (as alaan berman) at patient's floor/unit and/or counseling patient: QUALITY VTE Deep Vein Thrombosis/Pulmonary Embolism Present on Admission: No
--- NOTE | 2020-07-29 06:32 | XRay Report ---
CLINICAL INFORMATION: sob COMPARISON: 07/27/2020 FINDINGS: Mild cardiomegaly is unchanged. Mediastinum and pulmonary vasculature are unremarkable. Left upper lobe infiltrate has improved since prior examination - it remains moderate size. Suspect left hilar adenopathy. Smaller patchy right upper lobe infiltrate has also improved. Small left pleural effusion unchanged IMPRESSION: Moderate left upper lobe infiltrate improving from yesterday. Smaller patchy right upper lobe is also improving. Small left pleural effusion noted. Suggest two-view upright chest x-ray, if patient tolerated, for the next radiographic exam Interpreted and Authenticated by: Romain Pittman 07/29/20
[2020-07-29 07:03] LABS: Basophils # (Auto) 0.02 K/mcL (0.00-0.20); Basophils % (Auto) 0.1 % (0.0-2.0); Eosinophils # (Auto) 0 K/mcL (0.00-0.70); Eosinophils % (Auto) 0 % (0.0-7.0); Hematocrit 36.8 % (41.0-55.0); Hemoglobin 12.1 g/dL (13.5-16.5); Lymphocytes # (Auto) 0.46 K/mcL (1.50-4.80); Mean Cell Volume 97.4 fL (80.0-100.0); Mean Corpuscular HGB Conc 32.9 g/dL (31.0-36.0); Mean Platelet Volume 11.3 fL (7.4-10.4); Monocytes # (Auto) 0.86 K/mcL (0.10-0.90); Monocytes % (Auto) 3.7 % (1.0-12.0); Neutrophils % (Auto) 94.2 % (38.0-78.0); Platelet Count 290 K/mcL (140-440); RBC 3.78 M/mcL (4.50-5.90); Red Cell Distribution Width 15.6 % (11.5-14.5)
[2020-07-29 07:23] LABS: ALT/SGPT 48 U/L (<40); AST/SGOT 67 U/L (<40); Albumin 2.8 gm/dL (3.2-5.2); Alkaline Phosphatase 94 U/L (39-117); Bilirubin,Direct < 0.2 mg/dL (0-0.3); Bilirubin,Total < 0.2 mg/dL (0.1-1.0); Blood Urea Nitrogen 28 mg/dL (8-23); Calcium 8.3 mg/dL (8.6-10.4); Carbon Dioxide 24 mmol/L (22-30); Chloride 102 mmol/L (96-108); Globulin 2.9 gm/dL (2.2-3.7); Glomerular Filtration Rate 103; Glucose 177 mg/dL (70-105); Lactate Dehydrogenase 220 U/L (135-225); Phosphorous 2.1 mg/dL (2.5-4.5); Triglycerides 130 mg/dL (<150); Uric Acid 4.5 mg/dL (2.5-8.0)
[2020-07-29] MEDS ORDERED: DILTIAZEM 25 MG/5 ML VIAL IV ONE (07:45)
[2020-07-29] MEDS: DOCUSATE SODIUM 100 MG CAPSULE PO SCH ×2 (08:28→20:25)
[2020-07-29] MEDS: DILTIAZEM 125 MG in DEXTROSE 5% IN WATER 100 ML IV SCH ×2 (08:36→21:12)
[2020-07-29] MEDS: HEPARIN 5,000 UNIT/ML VIAL SQ SCH ×2 (08:49→20:25)
[2020-07-29] MEDS: CEFEPIME 2 GM VIAL IV SCH ×2 (08:52→20:35)
[2020-07-29] MEDS: GABAPENTIN 300 MG CAPSULE PO SCH (08:53)
[2020-07-29] MEDS: MULTIVIT,THER IRON,CA,FA & MIN 1 TABLET PO SCH (08:56)
[2020-07-29] MEDS: THIAMINE 100 MG TABLET PO SCH (08:56)
[2020-07-29] MEDS: 0.9 % SODIUM CHLORIDE 1,000 ML IV SCH (08:56)
[2020-07-29] MEDS: SIMVASTATIN 10 MG TABLET PO SCH (08:56)
[2020-07-29] MEDS ORDERED: GABAPENTIN 300 MG CAPSULE PO SCH (09:00)
[2020-07-29] MEDS ORDERED: SIMVASTATIN 10 MG TABLET PO SCH (09:00)
[2020-07-29] MEDS ORDERED: DIGOXIN 500 MCG/2 ML AMPUL IV ONE (09:44)
[2020-07-29] MEDS ORDERED: AZITHROMYCIN 500 MG in DEXTROSE 5% IN WATER 250 ML IV SCH (10:00)
--- NOTE | 2020-07-29 10:13 | Internal Med Progress Note ---
SUBJECTIVE Subjective Patient information: Note initiated : 07/29/20 at 10:07 am Service Date, if different from initiated Date: [] Patient: Celestine Beatty a 70 y/o M admitted on 07/27/20 for shortness of breath. Chief Complaint: [] Interval history: History of present illness: Mr. Beatty is a 70 year old M active smoker and with a history of COPD nonoxygen dependent was fairly independent and was living in [facility] since late last year. He has visited [place] couple of times during the last 6 months. He moved back to the [place] after [place]. Over the last 4 days he has noted increasing shortness of breath/weakness/increasing yellow productive sputum, chills and sweats. He became increasing concerned about his symptoms and presented to the ER. He endorses to his dog being sick with [place] fever. He was noted with gland sw elling around the neck and has been on treatment for the last 7 months. Initial work-up in the ER was consistent with severe sepsis/hypoxic respiratory failure requiring oxygen mask to maintain sats. He was started on noninvasive ventilation due to increased work of breathing and inability to talk. Patient responded to bronchodilators, antibiotics/antifungals were initiated after cultures were drawn. Hospitalist service was consulted for admission At the time of my evaluation patient is very anxious, distressed unable to talk in full sentences. He was able to endorse history as above. He denies sick contacts. He denies weight loss, hemoptysis, glandular swelling. Continues to actively smoke a pack a day. Additionally denies diarrhea, dysuria, joint swelling or rash 07/28-patient doing better since previous day. Currently on noninvasive ventilation. White count downtrending to 24 from 48.5, creatinine improved to 0.7, improving endorgan dysfunction. Stable hemodynamics. Requiring 30% FiO2 to maintain sats 92%. Ongoing bronchodilators/steroids. MRSA nasal swab negative. Vancomycin discontinued. Continue cefepime. ID on board. 07/29-patient in severe respiratory distress. Frequent coughing spells. However interval chest imaging improving since admission. A. fib RVR noted. Did not respond to beta-maria elena, start Cardizem/digoxin load if blood pressure not juan ble to CCB. Continue antibiotic coverage. Very anxious and labored. Intermittent BiPAP. Lower steroid dose to once daily, white count 23, creatinine 0.6, phosphorus 2.1 on replacement.Remains critically ill Constitutional Vitals: Vital Signs Temp Pulse Resp BP Pulse Ox 98.2 F 128 H 20 93/60 90 07/29/20 04:00 07/29/20 03:00 07/29/20 03:00 07/29/20 09:02 07/29/20 09:02 Period Temp Pulse Resp BP Sys/Mcclendon Pulse Ox Last 24 Hr 98.2 F-98.4 F 86-128 18-41 85-144/60-123 89-100 Intake and Output 07/28/20 07/29/20 07/29/20 21:59 05:59 13:59 Intake Total 1300 970 Output Total 600 700 Balance 700 -700 970 Weight 57.243 kg Anxious labored A. fib RVR on telemetry Rhonchi On 2 L oxygen Intake & Output: Intake & Output 07/28/20 07/29/20 07/29/20 21:59 05:59 13:59 Intake Total 1300 970 Output Total 600 700 Balance 700 -700 970 Weight 57.243 kg Intake: IV 970 Sodium Chloride 0.9% 1,000 ml @ 968 50 mls/hr IV .Q20H [facility] Rx#: [id number] Cardizem 125 mg In Dextrose 5% 2 in Water 100 ml @ 5 MG/HR 5 mls /hr IV Q12H [facility] Rx#:[id number] Oral 1300 Output: Void Amount 600 700 Other: Meal Dinner Percent of Meal Consumed 100% Urine Appearance Clear Clear Urine Color Pale Pale # Bowel Movements 1 OBJ DATA Labs CBC & Chem 7: 07/29/20 04:50 07/29/20 04:50 Labs: Abnormal Lab Results 07/29/20 07/29/20 07/28/20 04:50 04:50 05:18 WBC 23.0 H 24.0 H RBC 3.78 L 3.71 L Hgb 12.1 L 11.9 L Hct 36.8 L 36.0 L RDW 15.6 H 15.5 H MPV 11.3 H 10.9 H Neut % (Auto) 94.2 H 94.1 H Lymph % (Auto) 2.0 L 1.7 L Lymph # (Auto) 0.46 L 0.42 L [place] # (Auto) 0.99 H Absolute Neutrophils 21.69 H 22.58 H POC Total CO2 Anion Gap 7.0 L POC BUN BUN 28 H Creatinine 0.6 L Glucose 177 H Calcium 8.3 L Phosphorus 2.1 L AST 67 H ALT 48 H C-Reactive Protein Total Protein 5.7 L Albumin 2.8 L Albumin/Globulin Ratio Procalcitonin 07/28/20 07/27/20 07/27/20 05:17 10:30 10:29 WBC 28.5 H RBC Hgb Hct RDW 15.4 H MPV 10.8 H Neut % (Auto) 86.9 H Lymph % (Auto) 5.2 L Lymph # (Auto) 1.48 L [place] # (Auto) 2.16 H Absolute Neutrophils 24.70 H POC Total CO2 Anion Gap 7.0 L POC BUN BUN 25 H Creatinine Glucose 156 H Calcium 7.9 L Phosphorus AST ALT C-Reactive Protein Total Protein 5.5 L Albumin 2.6 L Albumin/Globulin Ratio 0.9 L Procalcitonin 8.90 H 07/27/20 07/27/20 10:29 10:29 WBC RBC Hgb Hct RDW MPV Neut % (Auto) Lymph % (Auto) Lymph # (Auto) [place] # (Auto) Absolute Neutrophils POC Total CO2 32 H Anion Gap POC BUN 34 H BUN Creatinine Glucose Calcium Phosphorus AST ALT C-Reactive Protein 34.60 H Total Protein Albumin Albumin/Globulin Ratio Procalcitonin Meds: Medications Acetaminophen (Acetaminophen 325 Mg Tablet) 650 mg PO Q4-6HP PRN; Protocol PRN Reason: Per Pain Protocol/Fever > 101 Albuterol/Ipratropium (Ipratropium/Albuterol 3 Ml Ampul.Neb) 3 ml NEB Q4HRT [facility] Last Admin: 07/29/20 07:39 Dose: Not Given Documented by: Bisacodyl (Bisacodyl 10 Mg Supp.Rect) 10 mg WA Q2-3DAYS PRN PRN Reason: Constipation Cefepime HCl (Cefepime 2 Gm Vial) 2 gm IV Q12H [facility] Last Admin: 07/29/20 08:52 Dose: 2 gm Documented by: Docusate Sodium (Docusate Sodium 100 Mg Capsule) 100 mg PO BID [facility] Last Admin: 07/29/20 08:28 Dose: Not Given Documented by: Gabapentin (Gabapentin 300 Mg Capsule) 300 mg PO QDAY [facility] Last Admin: 07/29/20 08:53 Dose: 300 mg Documented by: Guaifenesin/Codeine Phosphate (Guaifenesin/Codeine 10 Ml Udc) 10 ml PO Q4HP PRN PRN Reason: Cough Heparin Sodium (Porcine) (Heparin 5,000 Unit/Ml Vial) 5,000 unit SQ Q12 [facility] Last Admin: 07/29/20 08:49 Dose: 5,000 unit Documented by: Sodium Chloride (Sodium Chloride 0.9%) 1,000 mls @ 50 mls/hr IV .Q20H [facility] Stop: 07/30/20 02:39 Last Admin: 07/29/20 08:56 Dose: 50 mls/hr Documented by: Acetaminophen (Ofirmev) 650 mg in 65 mls @ 130 mls/hr IV Q6HP PRN; Protocol PRN Reason: Per Pain Protocol/Fever > 101 Azithromycin 500 mg/ Dextrose 250 mls @ 250 mls/hr IV Q24H [facility]; Protocol Stop: 07/29/20 10:59 Last Admin: 07/29/20 08:53 Dose: 250 mls/hr Documented by: Magnesium Sulfate (Magnesium Sulfate) 2 gm in 50 mls @ 50 mls/hr IV UD PRN PRN Reason: MG = or < 1.7 Potassium Chloride 40 meq/ (Dextrose) 520 mls @ 130 mls/hr IV UD PRN PRN Reason: K+ = or < 3.5 Diltiazem HCl 125 mg/ Dextrose 125 mls @ 5 mls/hr IV Q12H [facility]; Protocol Last Titration: 07/29/20 09:05 Dose: 10 mg/hr, 10 mls/hr Documented by: Iron Carb/Multivit/[place]/Folic Acid (Multivit,Ther Iron,Ca,Fa & Min 1 Tablet) 1 tab PO DAILY [facility] Last Admin: 07/29/20 08:56 Dose: 1 tab Documented by: Lorazepam (Lorazepam 2 Mg/Ml Vial) 0.5 mg IV Q6HP PRN PRN Reason: ANXIETY/SEDATION Melatonin (Melatonin 3 Mg Tablet) 3 mg PO HSP PRN PRN Reason: Insomnia Nicotine (Nicotine 21 Mg Patch) 21 mg TOPICAL DAILY@1000 [facility] Ondansetron HCl (Ondansetron 4 Mg Odt Tablet) 4 mg SL Q4-6HP PRN; Protocol PRN Reason: Nausea And Vomiting Ondansetron HCl (Ondansetron 4 Mg/2 Ml Vial) 4 mg IV Q4-6HP PRN; Protocol PRN Reason: Nausea And Vomiting Polyethylene Glycol (Polyethylene Glycol 3350 17 Gm Packet) 17 gm PO DAILYP PRN PRN Reason: Constipation Potassium Chloride (Potassium Chloride 20 Meq Packet) 40 meq PO DAILYP PRN PRN Reason: K+ < 3.5 Senna/Docusate Sodium (Sennosides/Docusate Sodium 1 Tab Tablet) 1 tab PO HS [facility] Last Admin: 07/28/20 20:21 Dose: Not Given Documented by: Simvastatin (Simvastatin 10 Mg Tablet) 5 mg PO QDAY [facility] Last Admin: 07/29/20 08:56 Dose: 5 mg Documented by: Sodium Chloride (0.9 % Sodium Chloride 10 Ml Syringe) 10 ml IV Q8 [facility] Last Admin: 07/29/20 05:20 Dose: 10 ml Documented by: Thiamine HCl (Thiamine 100 Mg Tablet) 100 mg PO DAILY [facility] Last Admin: 07/29/20 08:56 Dose: 100 mg Documented by: A/P Narrative A/P Narrative: * Left upper lobe pneumonia-continue antibiotic coverage. Pulmonary toilet. * Acute hypoxic respiratory failure-secondary to above. On BiPAP intermittently alternating with nasal cannula oxygen * A. fib RVR secondary sepsis endorgan dysfunction. Did not respond to beta- maria elena. Digoxin load. Calcium channel maria elena if blood pressure minimal * Severe sepsis with endorgan dysfunction and hypotension-White count downtrending. Cultures negative so far. * COPD exacerbation -continue bronchodilators/steroids/supplemental oxygen * Severe anxiety use as needed benzodiazepine * Hyperlipidemia continue statin * neuropathy continue gabapentin * History of tobacco smoking dependence * Prophylaxis Heparin Plan * Wean noninvasive mechanical ventilation as tolerated * Continue sepsis management per guidelines * As needed benzodiazepine * Rate control measures * Bronchodilators/lower IV steroids * PT OT nutrition support Time Spent With Patient Time: Critical care time 35 minutes QUALITY VTE Deep Vein Thrombosis/Pulmonary Embolism Present on Admission: No
[2020-07-29] MEDS: LORazepam 2 MG/ML VIAL IV PRN (10:30)
[2020-07-29] MEDS: predniSONE 20 MG TABLET PO SCH (11:57)
[2020-07-29] MEDS: NICOTINE 21 MG PATCH TOPICAL SCH (11:57)
[2020-07-29] MEDS: FLUTICASONE PROPIONATE SPRAY.NAS NS SCH (17:02)
--- NOTE | 2020-07-29 17:13 | EKG ---
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 Measurements Intervals [place] Rate: 141 P: [place]: QRS: -29 QRSD: 96 T: 83 QT: 332 QTc: 509 Interpretive Statements ATRIAL FIBRILLATION, V-RATE 101-167 BORDERLINE LEFT AXIS DEVIATION BORDERLINE T ABNORMALITIES, ANT-LAT LEADS, PROBABLY RATE RELATED PROLONGED QT INTERVAL Since previous ECG of 07-27-2020, A FIB, INCREASED RATE, INCREASED QTc, LESS LAD Electronically Signed On 07-29-2020 17:13:42 PDT by Errol Concepcion M.D. /[facility] [place]/M0/[id number]
[2020-07-29] MEDS: MELATONIN 3 MG TABLET PO PRN (20:25)
[2020-07-29] MEDS: SENNOSIDES/DOCUSATE SODIUM 1 TAB TABLET PO SCH (20:26)
[2020-07-29] MEDS: 0.9 % SODIUM CHLORIDE 250 ML IV SCH ×2 (21:15→22:22)
[2020-07-30] MEDS: IPRATROPIUM/ALBUTEROL 3 ML AMPUL.NEB NEB SCH ×6 (03:13→23:52)
[2020-07-30] MEDS: 0.9 % SODIUM CHLORIDE 10 ML SYRINGE IV SCH ×3 (05:41→21:49)
[2020-07-30 06:39] LABS: Basophils # (Auto) 0.02 K/mcL (0.00-0.20); Basophils % (Auto) 0.1 % (0.0-2.0); Eosinophils # (Auto) 0 K/mcL (0.00-0.70); Eosinophils % (Auto) 0 % (0.0-7.0); Hematocrit 37.8 % (41.0-55.0); Lymphocytes # (Auto) 0.87 K/mcL (1.50-4.80); Mean Cell Volume 98.4 fL (80.0-100.0); Mean Corpuscular HGB Conc 31.7 g/dL (31.0-36.0); Mean Platelet Volume 11.5 fL (7.4-10.4); Monocytes # (Auto) 1.17 K/mcL (0.10-0.90); Monocytes % (Auto) 6.7 % (1.0-12.0); Neutrophils % (Auto) 88.2 % (38.0-78.0); Platelet Count 273 K/mcL (140-440); RBC 3.84 M/mcL (4.50-5.90); Red Cell Distribution Width 15.8 % (11.5-14.5); WBC 17.5 K/mcL (4.5-11.0)
[2020-07-30 06:57] LABS: ALT/SGPT 124 U/L (<40); AST/SGOT 63 U/L (<40); Albumin 2.6 gm/dL (3.2-5.2); Albumin/Globulin Ratio 0.8 (1.0-2.3); Alkaline Phosphatase 88 U/L (39-117); Bilirubin,Direct < 0.2 mg/dL (0-0.3); Bilirubin,Total < 0.2 mg/dL (0.1-1.0); Blood Urea Nitrogen 31 mg/dL (8-23); Calcium 8.3 mg/dL (8.6-10.4); Carbon Dioxide 26 mmol/L (22-30); Chloride 105 mmol/L (96-108); Globulin 3.1 gm/dL (2.2-3.7); Glomerular Filtration Rate 103; Glucose 142 mg/dL (70-105); Lactate Dehydrogenase 146 U/L (135-225); Phosphorous 1.9 mg/dL (2.5-4.5); Triglycerides 163 mg/dL (<150); Uric Acid 4.7 mg/dL (2.5-8.0)
--- NOTE | 2020-07-30 08:54 | Internal Med Progress Note ---
SUBJECTIVE Subjective Patient information: Note initiated : 07/30/20 at 8:49 am Service Date, if different from initiated Date: [] Patient: Celestine Beatty a 70 y/o M admitted on 07/27/20 for shortness of breath. Chief Complaint: [] Interval history: History of present illness: Mr. Beatty is a 70 year old M active smoker and with a history of COPD nonoxygen dependent was fairly independent and was living in [facility] since late last year. He has visited [place] couple of times during the last 6 months. He moved back to the [place] after [place]. Over the last 4 days he has noted increasing shortness of breath/weakness/increasing yellow productive sputum, chills and sweats. He became increasing concerned about his symptoms and presented to the ER. He endorses to his dog being sick with [place] fever. He was noted with gland swe lling around the neck and has been on treatment for the last 7 months. Initial work-up in the ER was consistent with severe sepsis/hypoxic respiratory failure requiring oxygen mask to maintain sats. He was started on noninvasive ventilation due to increased work of breathing and inability to talk. Patient responded to bronchodilators, antibiotics/antifungals were initiated after cultures were drawn. Hospitalist service was consulted for admission At the time of my evaluation patient is very anxious, distressed unable to talk in full sentences. He was able to endorse history as above. He denies sick contacts. He denies weight loss, hemoptysis, glandular swelling. Continues to actively smoke a pack a day. Additionally denies diarrhea, dysuria, joint swelling or rash 07/28-patient doing better since previous day. Currently on noninvasive ventilation. White count downtrending to 24 from 48.5, creatinine improved to 0.7, improving endorgan dysfunction. Stable hemodynamics. Requiring 30% FiO2 to maintain sats 92%. Ongoing bronchodilators/steroids. MRSA nasal swab negative. Vancomycin discontinued. Continue cefepime. ID on board. 07/29-patient in severe respiratory distress. Frequent coughing spells. However interval chest imaging improving since admission. A. fib RVR noted. Did not respond to beta-maria elena, start Cardizem/digoxin load if blood pressure not amenable to CCB. Continue antibiotic coverage. Very anxious and labored. Intermittent BiPAP. Lower steroid dose to once daily, white count 23, creatinine 0.6, phosphorus 2.1 on replacement.Remains critically ill 07/30-patient doing remarkably well. White count down to 17.5. Much improved work of breathing. Able to talk in full sentences. Off noninvasive ventilation since last evening. Renal function stable, ongoing phosphorus replacement, PT OT/nutrition supplements, cultures negative so far, no overnight fever chills. A. fib RVR well controlled on diltiazem drip. Transition to oral diltiazem. Hemodynamic stable. Constitutional Vitals: Vital Signs Temp Pulse Resp BP Pulse Ox 97 F 141 H 20 105/73 92 07/30/20 08:02 07/30/20 07:43 07/30/20 08:02 07/30/20 08:02 07/30/20 08:02 Period Temp Pulse Resp BP Sys/Mcclendon Pulse Ox Last 24 Hr 97 F-97.4 F 90-141 20-36 82-111/53-91 87-100 Intake and Output 07/29/20 07/30/20 07/30/20 21:59 05:59 13:59 Intake Total 702 140 40 Output Total 830 450 175 Balance -128 -310 -135 Weight 60.6 kg Intake & Output: Intake & Output 07/29/20 07/30/20 07/30/20 21:59 05:59 13:59 Intake Total 702 140 40 Output Total 830 450 175 Balance -128 -310 -135 Weight 60.6 kg Intake: IV 102 40 40 Sodium Chloride 0.9% 250 ml @ 22 20 mls/hr IV .[id number] [facility] Rx#: [id number] Cardizem 125 mg In Dextrose 5% 102 18 40 in Water 100 ml @ 5 MG/HR 5 mls /hr IV Q12H [facility] Rx#:[id number] Oral 600 100 Output: Void Amount 830 450 175 Other: Meal Dinner Percent of Meal Consumed 100% Urine Appearance Clear Clear Urine Color Dark Yellow Straw # Bowel Movements 0 OBJ DATA Labs CBC & Chem 7: 07/30/20 05:05 07/30/20 05:05 Labs: Abnormal Lab Results 07/30/20 07/30/20 07/29/20 05:05 05:05 04:50 WBC 17.5 H RBC 3.84 L Hgb 12.0 L Hct 37.8 L RDW 15.8 H MPV 11.5 H Neut % (Auto) 88.2 H Lymph % (Auto) 5.0 L Lymph # (Auto) 0.87 L [place] # (Auto) 1.17 H Absolute Neutrophils 15.43 H POC Total CO2 Anion Gap 5.0 L 7.0 L POC BUN BUN 31 H 28 H Creatinine 0.6 L 0.6 L Glucose 142 H 177 H Calcium 8.3 L 8.3 L Phosphorus 1.9 L 2.1 L GGT 76 H AST 63 H 67 H ALT 124 H 48 H C-Reactive Protein Total Protein 5.7 L 5.7 L Albumin 2.6 L 2.8 L Albumin/Globulin Ratio 0.8 L Triglycerides 163 H Procalcitonin 07/29/20 07/28/20 07/28/20 04:50 05:18 05:17 WBC 23.0 H 24.0 H RBC 3.78 L 3.71 L Hgb 12.1 L 11.9 L Hct 36.8 L 36.0 L RDW 15.6 H 15.5 H MPV 11.3 H 10.9 H Neut % (Auto) 94.2 H 94.1 H Lymph % (Auto) 2.0 L 1.7 L Lymph # (Auto) 0.46 L 0.42 L [place] # (Auto) 0.99 H Absolute Neutrophils 21.69 H 22.58 H POC Total CO2 Anion Gap 7.0 L POC BUN BUN 25 H Creatinine Glucose 156 H Calcium 7.9 L Phosphorus GGT AST ALT C-Reactive Protein Total Protein 5.5 L Albumin 2.6 L Albumin/Globulin Ratio 0.9 L Triglycerides Procalcitonin 07/27/20 07/27/20 07/27/20 10:30 10:29 10:29 WBC 28.5 H RBC Hgb Hct RDW 15.4 H MPV 10.8 H Neut % (Auto) 86.9 H Lymph % (Auto) 5.2 L Lymph # (Auto) 1.48 L [place] # (Auto) 2.16 H Absolute Neutrophils 24.70 H POC Total CO2 Anion Gap POC BUN BUN Creatinine Glucose Calcium Phosphorus GGT AST ALT C-Reactive Protein 34.60 H Total Protein Albumin Albumin/Globulin Ratio Triglycerides Procalcitonin 8.90 H 07/27/20 10:29 WBC RBC Hgb Hct RDW MPV Neut % (Auto) Lymph % (Auto) Lymph # (Auto) [place] # (Auto) Absolute Neutrophils POC Total CO2 32 H Anion Gap POC BUN 34 H BUN Creatinine Glucose Calcium Phosphorus GGT AST ALT C-Reactive Protein Total Protein Albumin Albumin/Globulin Ratio Triglycerides Procalcitonin Meds: Medications Acetaminophen (Acetaminophen 325 Mg Tablet) 650 mg PO Q4-6HP PRN; Protocol PRN Reason: Per Pain Protocol/Fever > 101 Albuterol/Ipratropium (Ipratropium/Albuterol 3 Ml Ampul.Neb) 3 ml NEB Q4HRT [facility] Last Admin: 07/30/20 03:13 Dose: 3 ml Documented by: Bisacodyl (Bisacodyl 10 Mg Supp.Rect) 10 mg DC Q2-3DAYS PRN PRN Reason: Constipation Cefepime HCl (Cefepime 2 Gm Vial) 2 gm IV Q12H [facility] Last Admin: 07/29/20 20:35 Dose: 2 gm Documented by: Docusate Sodium (Docusate Sodium 100 Mg Capsule) 100 mg PO BID [facility] Last Admin: 07/29/20 20:25 Dose: Not Given Documented by: Fluticasone Propionate (Fluticasone Propionate [place]) 2 spray NS DAILY [facility] Last Admin: 07/29/20 17:02 Dose: 2 spray Documented by: Gabapentin (Gabapentin 300 Mg Capsule) 300 mg PO QDAY [facility] Last Admin: 07/29/20 08:53 Dose: 300 mg Documented by: Guaifenesin/Codeine Phosphate (Guaifenesin/Codeine 10 Ml Udc) 10 ml PO Q4HP PRN PRN Reason: Cough Heparin Sodium (Porcine) (Heparin 5,000 Unit/Ml Vial) 5,000 unit SQ Q12 [facility] Last Admin: 07/29/20 20:25 Dose: 5,000 unit Documented by: Acetaminophen (Ofirmev) 650 mg in 65 mls @ 130 mls/hr IV Q6HP PRN; Protocol PRN Reason: Per Pain Protocol/Fever > 101 Magnesium Sulfate (Magnesium Sulfate) 2 gm in 50 mls @ 50 mls/hr IV UD PRN PRN Reason: MG = or < 1.7 Potassium Chloride 40 meq/ (Dextrose) 520 mls @ 130 mls/hr IV UD PRN PRN Reason: K+ = or < 3.5 Diltiazem HCl 125 mg/ Dextrose 125 mls @ 5 mls/hr IV Q12H [facility]; Protocol Last Titration: 07/30/20 07:00 Dose: 10 mg/hr, 10 mls/hr Documented by: Sodium Chloride (Sodium Chloride 0.9%) 250 mls @ 20 mls/hr IV .[id number] [facility] Last Admin: 07/29/20 22:22 Dose: 20 mls/hr Documented by: Iron Carb/Multivit/[place]/Folic Acid (Multivit,Ther Iron,Ca,Fa & Min 1 Tablet) 1 tab PO DAILY [facility] Last Admin: 07/29/20 08:56 Dose: 1 tab Documented by: Lorazepam (Lorazepam 2 Mg/Ml Vial) 0.5 mg IV Q6HP PRN PRN Reason: ANXIETY/SEDATION Last Admin: 07/29/20 10:30 Dose: 0.5 mg Documented by: Melatonin (Melatonin 3 Mg Tablet) 3 mg PO HSP PRN PRN Reason: Insomnia Last Admin: 07/29/20 20:25 Dose: 3 mg Documented by: Nicotine (Nicotine 21 Mg Patch) 21 mg TOPICAL DAILY@1000 [facility] Last Admin: 07/29/20 11:57 Dose: 21 mg Documented by: Ondansetron HCl (Ondansetron 4 Mg Odt Tablet) 4 mg SL Q4-6HP PRN; Protocol PRN Reason: Nausea And Vomiting Ondansetron HCl (Ondansetron 4 Mg/2 Ml Vial) 4 mg IV Q4-6HP PRN; Protocol PRN Reason: Nausea And Vomiting Polyethylene Glycol (Polyethylene Glycol 3350 17 Gm Packet) 17 gm PO DAILYP PRN PRN Reason: Constipation Potassium Chloride (Potassium Chloride 20 Meq Packet) 40 meq PO DAILYP PRN PRN Reason: K+ < 3.5 Prednisone (Prednisone 20 Mg Tablet) 40 mg PO [facility] Last Admin: 07/29/20 11:57 Dose: 40 mg Documented by: Senna/Docusate Sodium (Sennosides/Docusate Sodium 1 Tab Tablet) 1 tab PO [facility] Last Admin: 07/29/20 20:26 Dose: Not Given Documented by: Simvastatin (Simvastatin 10 Mg Tablet) 5 mg PO QDAY [facility] Last Admin: 07/29/20 08:56 Dose: 5 mg Documented by: Sodium Chloride (0.9 % Sodium Chloride 10 Ml Syringe) 10 ml IV Q8 [facility] Last Admin: 07/30/20 05:41 Dose: Not Given Documented by: Thiamine HCl (Thiamine 100 Mg Tablet) 100 mg PO DAILY [facility] Last Admin: 07/29/20 08:56 Dose: 100 mg Documented by: A/P Narrative A/P Narrative: * Severe sepsis with endorgan dysfunction and hypotension-clinical improvement noted with aggressive management per protocol. Hemodynamics stabilized. * Left upper lobe pneumonia-clinical improvement noted on antibiotic coverage through 08/04. * Acute hypoxic respiratory failure-secondary to above. Off noninvasive ventilation. Currently between 0 and 2 L oxygen * A. fib RVR secondary sepsis endorgan dysfunction. Responded well to digoxin/calcium channel maria elena. Transition to oral diltiazem. CHADS Vasc score mandating anticoagulation * Low phosphorus start replacement * COPD exacerbation -continue bronchodilators/p.o. steroids/supplemental oxygen * Severe anxiety use as needed benzodiazepine * Hyperlipidemia continue statin * neuropathy continue gabapentin * History of tobacco smoking dependence, counseled for cessation * Prophylaxis Heparin Plan * Continue sepsis management per guidelines * Transition to oral CCB * Antibiotics to continue through 08/04 * Phosphorus replacement * As needed benzodiazepine * Bronchodilators/oral steroid * PT OT nutrition support Time Spent With Patient Time: Total time spent is greater than 50% in coordination of care (as documented) at patient's floor/unit and/or counseling patient: QUALITY VTE Deep Vein Thrombosis/Pulmonary Embolism Present on Admission: No
[2020-07-30] MEDS ORDERED: NEUTRA PHOS 1 PACKET PO PRN (08:55)
[2020-07-30] MEDS: CEFEPIME 2 GM VIAL IV SCH ×2 (09:19→21:07)
[2020-07-30] MEDS: GABAPENTIN 300 MG CAPSULE PO SCH (09:20)
[2020-07-30] MEDS: HEPARIN 5,000 UNIT/ML VIAL SQ SCH (09:20)
[2020-07-30] MEDS: DOCUSATE SODIUM 100 MG CAPSULE PO SCH ×2 (09:21→21:48)
[2020-07-30] MEDS: predniSONE 20 MG TABLET PO SCH (09:21)
[2020-07-30] MEDS: MULTIVIT,THER IRON,CA,FA & MIN 1 TABLET PO SCH (09:21)
[2020-07-30] MEDS: SIMVASTATIN 10 MG TABLET PO SCH (09:22)
[2020-07-30] MEDS: THIAMINE 100 MG TABLET PO SCH (09:22)
[2020-07-30] MEDS: FLUTICASONE PROPIONATE SPRAY.NAS NS SCH (09:42)
[2020-07-30] MEDS ORDERED: DILTIAZEM 30 MG TABLET PO ONE (10:16)
[2020-07-30] MEDS: NICOTINE 21 MG PATCH TOPICAL SCH (10:21)
--- NOTE | 2020-07-30 13:02 | Internal Med Progress Note ---
SUBJECTIVE Subjective Patient information: Note initiated : 07/30/20 at 12:57 pm Service Date, if different from initiated Date: [] Patient: Celestine Beatty a 70 y/o M admitted on 07/27/20 for shortness of breath. Chief Complaint: [] Interval history: History of present illness: Mr. Beatty is a 70 year old M active smoker and with a history of COPD nonoxygen dependent was fairly independent and was living in [facility] and the [facility] since late last year. He has visited [place] couple of times during the last 6 months. He moved back to the [place] after [place]. Over the last 4 days he has noted increasing shortness of breath/weakness/increasing yellow productive sputum, chills and sweats. He became increasing concerned about his symptoms and presented to the ER. He endorses to his dog being sick with [place] fever. He was noted with gland sw elling around the neck and has been on treatment for the last 7 months. Initial work-up in the ER was consistent with severe sepsis/hypoxic respiratory failure requiring oxygen mask to maintain sats. He was started on noninvasive ventilation due to increased work of breathing and inability to talk. Patient responded to bronchodilators, antibiotics/antifungals were initiated after cultures were drawn. Hospitalist service was consulted for admission At the time of my evaluation patient is very anxious, distressed unable to talk in full sentences. He was able to endorse history as above. He denies sick contacts. He denies weight loss, hemoptysis, glandular swelling. Continues to actively smoke a pack a day. Additionally denies diarrhea, dysuria, joint swelling or rash 07/28-patient doing better since previous day. Currently on noninvasive ventilation. White count downtrending to 24 from 48.5, creatinine improved to 0.7, improving endorgan dysfunction. Stable hemodynamics. Requiring 30% FiO2 to maintain sats 92%. Ongoing bronchodilators/steroids. MRSA nasal swab negative. Vancomycin discontinued. Continue cefepime. ID on board. 07/29-patient in severe respiratory distress. Frequent coughing spells. However interval chest imaging improving since admission. A. fib RVR noted. Did not respond to beta-maria elena, start Cardizem/digoxin load if blood pressure not juan ble to CCB. Continue antibiotic coverage. Very anxious and labored. Intermittent BiPAP. Lower steroid dose to once daily, white count 23, creatinine 0.6, phosphorus 2.1 on replacement.Remains critically ill 07/30-patient doing remarkably well. White count down to 17.5. Much improved work of breathing. Able to talk in full sentences. Off noninvasive ventilation since last evening. Renal function stable, ongoing phosphorus replacement, PT OT/nutrition supplements, cultures negative so far, no overnight fever chills. A. fib RVR well controlled on diltiazem drip. Transition to oral diltiazem. Hemodynamic stable. 07/31 Constitutional Vitals: Vital Signs Temp Pulse Resp BP Pulse Ox 97.2 F 134 H 20 105/77 95 07/30/20 12:01 07/30/20 10:21 07/30/20 10:21 07/30/20 12:01 07/30/20 12:01 Period Temp Pulse Resp BP Sys/Mccl[place]on Pulse Ox Last 24 Hr 97 F-97.4 F 90-141 20-36 90-112/53-91 87-100 Intake and Output 07/29/20 07/30/20 07/30/20 21:59 05:59 13:59 Intake Total 649 326 0131 Output Total 830 450 175 Balance -128 -310 1166 Weight 60.6 kg Intake & Output: Intake & Output 07/29/20 07/30/20 07/30/20 21:59 05:59 13:59 Intake Total 903 872 9206 Output Total 830 450 175 Balance -128 -310 1166 Weight 60.6 kg Intake: IV 732 88 6911 Sodium Chloride 0.9% 1,000 ml @ 1000 50 mls/hr IV .Q20H [facility] Rx#: [id number] Sodium Chloride 0.9% 250 ml @ 22 250 20 mls/hr IV .[id number] [facility] Rx#: [id number] Cardizem 125 mg In Dextrose 5% 102 18 91 in Water 100 ml @ 5 MG/HR 5 mls /hr IV Q12H [facility] Rx#:[id number] Oral 600 100 Output: Void Amount 830 450 175 Other: Meal Dinner Percent of Meal Consumed 100% Urine Appearance Clear Clear Urine Color Dark Yellow Straw # Bowel Movements 0 Exam: General: Alert, Awake, No acute Distress Eyes/N/T: EOMI, Head/Neck: neck supple, CV: irreg irreg, No murmurs, Pulm: b/l rhonchi/wheeze Abd: soft, nontender, +BS x4 Ext: no clubbing/cyanosis/edema Neuro: Alert, no focal deficits, moves all extremities, Skin: warm/dry OBJ DATA Labs CBC & Chem 7: 07/30/20 05:05 07/30/20 05:05 Labs: Abnormal Lab Results 07/30/20 07/30/20 07/29/20 05:05 05:05 04:50 WBC 17.5 H RBC 3.84 L Hgb 12.0 L Hct 37.8 L RDW 15.8 H MPV 11.5 H Neut % (Auto) 88.2 H Lymph % (Auto) 5.0 L Lymph # (Auto) 0.87 L [place] # (Auto) 1.17 H Absolute Neutrophils 15.43 H Anion Gap 5.0 L 7.0 L BUN 31 H 28 H Creatinine 0.6 L 0.6 L Glucose 142 H 177 H Calcium 8.3 L 8.3 L Phosphorus 1.9 L 2.1 L GGT 76 H AST 63 H 67 H ALT 124 H 48 H C-Reactive Protein Total Protein 5.7 L 5.7 L Albumin 2.6 L 2.8 L Albumin/Globulin Ratio 0.8 L Triglycerides 163 H Procalcitonin 07/29/20 07/28/20 07/28/20 04:50 05:18 05:17 WBC 23.0 H 24.0 H RBC 3.78 L 3.71 L Hgb 12.1 L 11.9 L Hct 36.8 L 36.0 L RDW 15.6 H 15.5 H MPV 11.3 H 10.9 H Neut % (Auto) 94.2 H 94.1 H Lymph % (Auto) 2.0 L 1.7 L Lymph # (Auto) 0.46 L 0.42 L [place] # (Auto) 0.99 H Absolute Neutrophils 21.69 H 22.58 H Anion Gap 7.0 L BUN 25 H Creatinine Glucose 156 H Calcium 7.9 L Phosphorus GGT AST ALT C-Reactive Protein Total Protein 5.5 L Albumin 2.6 L Albumin/Globulin Ratio 0.9 L Triglycerides Procalcitonin 07/27/20 07/27/20 10:29 10:29 WBC RBC Hgb Hct RDW MPV Neut % (Auto) Lymph % (Auto) Lymph # (Auto) [place] # (Auto) Absolute Neutrophils Anion Gap BUN Creatinine Glucose Calcium Phosphorus GGT AST ALT C-Reactive Protein 34.60 H Total Protein Albumin Albumin/Globulin Ratio Triglycerides Procalcitonin 8.90 H Meds: Medications Acetaminophen (Acetaminophen 325 Mg Tablet) 650 mg PO Q4-6HP PRN; Protocol PRN Reason: Per Pain Protocol/Fever > 101 Albuterol/Ipratropium (Ipratropium/Albuterol 3 Ml Ampul.Neb) 3 ml NEB Q4HRT [facility] Last Admin: 07/30/20 10:17 Dose: 3 ml Documented by: Bisacodyl (Bisacodyl 10 Mg Supp.Rect) 10 mg [place] Q2-3DAYS PRN PRN Reason: Constipation Cefepime HCl (Cefepime 2 Gm Vial) 2 gm IV Q12H [facility] Last Admin: 07/30/20 09:19 Dose: 2 gm Documented by: Diltiazem HCl (Diltiazem 30 Mg Tablet) 60 mg PO Q8H [facility] Docusate Sodium (Docusate Sodium 100 Mg Capsule) 100 mg PO BID [facility] Last Admin: 07/30/20 09:21 Dose: 100 mg Documented by: Fluticasone Propionate (Fluticasone Propionate [place]) 2 spray NS DAILY [facility] Last Admin: 07/30/20 09:42 Dose: 2 spray Documented by: Gabapentin (Gabapentin 300 Mg Capsule) 300 mg PO QDAY [facility] Last Admin: 07/30/20 09:20 Dose: 300 mg Documented by: Guaifenesin/Codeine Phosphate (Guaifenesin/Codeine 10 Ml Udc) 10 ml PO Q4HP PRN PRN Reason: Cough Heparin Sodium (Porcine) (Heparin 5,000 Unit/Ml Vial) 5,000 unit SQ Q12 [facility] Last Admin: 07/30/20 09:20 Dose: 5,000 unit Documented by: Acetaminophen (Ofirmev) 650 mg in 65 mls @ 130 mls/hr IV Q6HP PRN; Protocol PRN Reason: Per Pain Protocol/Fever > 101 Magnesium Sulfate (Magnesium Sulfate) 2 gm in 50 mls @ 50 mls/hr IV UD PRN PRN Reason: MG = or < 1.7 Potassium Chloride 40 meq/ (Dextrose) 520 mls @ 130 mls/hr IV UD PRN PRN Reason: K+ = or < 3.5 Diltiazem HCl 125 mg/ Dextrose 125 mls @ 5 mls/hr IV Q12H [facility]; Protocol Last Titration: 07/30/20 10:56 Dose: 0 mg/hr, 0 mls/hr Documented by: Sodium Chloride (Sodium Chloride 0.9%) 250 mls @ 20 mls/hr IV .[id number] [facility] Last Infusion: 07/30/20 12:00 Dose: Infused Documented by: Iron Carb/Multivit/[place]/Folic Acid (Multivit,Ther Iron,Ca,Fa & Min 1 Tablet) 1 tab PO DAILY [facility] Last Admin: 07/30/20 09:21 Dose: 1 tab Documented by: Lorazepam (Lorazepam 2 Mg/Ml Vial) 0.5 mg IV Q6HP PRN PRN Reason: ANXIETY/SEDATION Last Admin: 07/29/20 10:30 Dose: 0.5 mg Documented by: Melatonin (Melatonin 3 Mg Tablet) 3 mg PO HSP PRN PRN Reason: Insomnia Last Admin: 07/29/20 20:25 Dose: 3 mg Documented by: Nicotine (Nicotine 21 Mg Patch) 21 mg TOPICAL DAILY@1000 [facility] Last Admin: 07/30/20 10:21 Dose: 21 mg Documented by: Ondansetron HCl (Ondansetron 4 Mg Odt Tablet) 4 mg SL Q4-6HP PRN; Protocol PRN Reason: Nausea And Vomiting Ondansetron HCl (Ondansetron 4 Mg/2 Ml Vial) 4 mg IV Q4-6HP PRN; Protocol PRN Reason: Nausea And Vomiting Polyethylene Glycol (Polyethylene Glycol 3350 17 Gm Packet) 17 gm PO DAILYP PRN PRN Reason: Constipation Potassium Chloride (Potassium Chloride 20 Meq Packet) 40 meq PO DAILYP PRN PRN Reason: K+ < 3.5 Potassium/Phosphorus/Sodium (Neutra Phos 1 Packet) 2 packet PO ONCE PRN PRN Reason: For phosphorus less than 2.5 Last Admin: 07/30/20 09:42 Dose: 2 packet Documented by: Prednisone (Prednisone 20 Mg Tablet) 40 mg PO [facility] Last Admin: 07/30/20 09:21 Dose: 40 mg Documented by: Senna/Docusate Sodium (Sennosides/Docusate Sodium 1 Tab Tablet) [address] [facility] Last Admin: 07/29/20 20:26 Dose: Not Given Documented by: Simvastatin (Simvastatin 10 Mg Tablet) 5 mg PO QDAY [facility] Last Admin: 07/30/20 09:22 Dose: 5 mg Documented by: Sodium Chloride (0.9 % Sodium Chloride 10 Ml Syringe) 10 ml IV Q8 [facility] Last Admin: 07/30/20 05:41 Dose: Not Given Documented by: Thiamine HCl (Thiamine 100 Mg Tablet) 100 mg PO DAILY [facility] Last Admin: 07/30/20 09:22 Dose: 100 mg Documented by: A/P Narrative A/P Narrative: A: *Severe sepsis with endorgan dysfunction/hypotension: *DELISA PNA: clinical improvement *COPD exacerbation -continue bronchodilators/p.o. steroids/supplemental oxygen *Acute on chronic hypoxic respiratory failure: secondary to above -Off noninvasive ventilation -0-2L oxygen *AFib RVR: secondary sepsis endorgan dysfunction. Responded well to digoxin/calcium channel maria elena. Transition to oral diltiazem. CHADS Vasc score mandating anticoagulation *Low phosphorus: *Severe anxiety: use as needed benzodiazepine *Neuropathy: continue gabapentin *Tobacco abuse: Plan: -Continue sepsis management per guidelines -Transition to oral CCB -Antibiotics to continue through 08/04 -Phosphorus replacement -As needed benzodiazepine -Bronchodilators/oral steroid -PT OT nutrition support -Prophylaxis: Heparin Time Spent With Patient Time: Total time spent is greater than 50% in coordination of care (as documented) at patient's floor/unit and/or counseling patient: QUALITY VTE Deep Vein Thrombosis/Pulmonary Embolism Present on Admission: No
--- NOTE | 2020-07-30 13:04 | Discharge Summary ---
Discharge Provider Provider Patient information: Note initiated : 07/30/20 at 1:03 pm Service Date, if different from initiated Date: [] Patient: Celestine Beatty 70 y/o M admitted on 07/27/20 for shortness of breath. Chief Complaint: [] Date of admission: 07/27/20 14:30 Discharge date: 07/31/20 Primary care physician: PCP No Consults: 07/27/20 Consult to Physician [CONS] Stat Comment: Consulting Provider: Allen Saucedo Reason For Exam: Physician to Consult Consult to Physician [CONS] Stat Comment: Consulting Provider: Zain Bridges Reason For Exam: Physician to Consult Discharge Meds Discharge Medications Home Medications Breo Ellipta 1 inh INHALATION QDAY 07/27/20 [History Confirmed 07/27/20 Last Taken 07/27/20] albuterol sulfate 2 puff INHALATION Q4H PRN 07/27/20 [History Confirmed 07/27/20 Last Taken 07/27/20] budesonide-formoterol [Symbicort] 1 puff INHALATION QDAY 07/27/20 [History Confirmed 07/27/20 Last Taken 07/27/20] gabapentin 300 mg PO QDAY 07/27/20 [History Confirmed 07/27/20 Last Taken 07/27/20] ipratropium-albuterol 3 ml INHALATION Q4H PRN 07/27/20 [History Confirmed 07/27/20 Last Taken 07/27/20] simvastatin 5 mg PO QDAY 07/27/20 [History Confirmed 07/27/20 Last Taken 10/09] apixaban [Eliquis] 5 mg PO BID #60 tab 07/30/20 [Rx Last Taken Unknown] cefdinir 300 mg PO BID #8 cap 07/30/20 [Rx Last Taken Unknown] diltiazem HCl 60 mg PO Q8H #90 tab 07/30/20 [Rx Last Taken Unknown] prednisone 30 mg PO QDAY #1 tab 07/30/20 [Rx Last Taken Unknown] COURSE Hospital Course Hospital course: Interval history: History of present illness: Mr. Beatty is a 70 year old M active smoker and with a history of COPD nonoxygen dependent was fairly independent and was living in [facility] since late last year. He has visited [place] couple of times during the last 6 months. He moved back to the [place] after [place]. Over the last 4 days he has noted increasing shortness of breath/weakness/increasing yellow productive sputum, chills and sweats. He became increasing concerned about his symptoms and presented to the ER. He endorses to his dog being sick with [place] fever. He was noted with gland swelling around the neck and has been on treatment for the last 7 months. Initial work-up in the ER was consistent with severe sepsis/hypoxic respiratory failure requiring oxygen mask to maintain sats. He was started on noninvasive ventilation due to increased work of breathing and inability to talk. Patient responded to bronchodilators, antibiotics/antifungals were initiated after cultures were drawn. Hospitalist service was consulted for admission At the time of my evaluation patient is very anxious, distressed unable to talk in full sentences. He was able to endorse history as above. He denies sick contacts. He denies weight loss, hemoptysis, glandular swelling. Continues to actively smoke a pack a day. Additionally denies diarrhea, dysuria, joint swelling or rash 07/28-patient doing better since previous day. Currently on noninvasive ventilation. White count downtrending to 24 from 48.5, creatinine improved to 0.7, improving endorgan dysfunction. Stable hemodynamics. Requiring 30% FiO2 to maintain sats 92%. Ongoing bronchodilators/steroids. MRSA nasal swab negative. Vancomycin discontinued. Continue cefepime. ID on board. 07/29-patient in severe respiratory distress. Frequent coughing spells. However interval chest imaging improving since admission. A. fib RVR noted. Did not respond to beta-maria elena, start Cardizem/digoxin load if blood pressure not amenable to CCB. Continue antibiotic coverage. Very anxious and labored. Intermittent BiPAP. Lower steroid dose to once daily, white count 23, creatinine 0.6, phosphorus 2.1 on replacement.Remains critically ill 07/30-patient doing remarkably well. White count down to 17.5. Much improved work of breathing. Able to talk in full sentences. Off noninvasive ventilation since last evening. Renal function stable, ongoing phosphorus replacement, PT OT/nutrition supplements, cultures negative so far, no overnight fever chills. A. fib RVR well controlled on diltiazem drip. Transition to oral diltiazem. Hemodynamic stable. 07/31 Patient continues to feel better, feels his cough and shortness of breath is close to baseline. He desires to go home. He is on between 0 and 1 L of oxygen. Venous COPD will likely need home oxygen and will have RT assess. A: *Severe sepsis with endorgan dysfunction/hypotension: *DELISA PNA(strep): clinical improvement *COPD exacerbation: continue bronchodilators/p.o. steroids/supplemental oxygen *Acute on chronic hypoxic respiratory failure: secondary to above -Off noninvasive ventilation -0-2L oxygen *AFib RVR: secondary sepsis endorgan dysfunction. Responded well to digoxin/calcium channel maria elena. Transition to oral diltiazem. CHADS Vasc score mandating anticoagulation *Low phosphorus: *Severe anxiety: use as needed benzodiazepine *Neuropathy: continue gabapentin *Tobacco abuse: Discharge diagnosis: Sepsis pneumonia COPD exacerbation hypoxic respiratory failure A. fib RVR Secondary discharge diagnosis: Electrolyte abnormalities anxiety neuropathy tobacco abuse Time Spent with Patient Time attestation: Total time spent providing and/or coordinating discharge services: Time spent: Greater than 30 minutes EXAM Constitutional Vitals: Temp Pulse Resp BP Pulse Ox 97.2 F 134 H 20 105/77 95 07/30/20 12:01 07/30/20 10:21 07/30/20 10:21 07/30/20 12:01 07/30/20 12:01 Discharge Data Data Completed and Pending Labs on day of discharge: Labs from last 24 hours 07/30/20 07/30/20 05:05 05:05 WBC 17.5 H RBC 3.84 L Hgb 12.0 L Hct 37.8 L MCV 98.4 MCH 31.3 MCHC 31.7 RDW 15.8 H Plt Count 273 MPV 11.5 H Neut % (Auto) 88.2 H Lymph % (Auto) 5.0 L [place] % (Auto) 6.7 Eos % (Auto) 0 Baso % (Auto) 0.1 Lymph # (Auto) 0.87 L [place] # (Auto) 1.17 H Eos # (Auto) 0 Baso # (Auto) 0.02 Absolute Neutrophils 15.43 H Sodium 136 Potassium 4.5 Chloride 105 Carbon Dioxide 26 Anion Gap 5.0 L BUN 31 H Creatinine 0.6 L GFR Calculation 103 Glucose 142 H Uric Acid 4.7 Calcium 8.3 L Phosphorus 1.9 L Magnesium 2.0 Total Bilirubin < 0.2 Direct Bilirubin < 0.2 GGT 76 H AST 63 H ALT 124 H Alkaline Phosphatase 88 Lactate Dehydrogenase 146 Total Protein 5.7 L Albumin 2.6 L Globulin 3.1 Albumin/Globulin Ratio 0.8 L Triglycerides 163 H Preliminary micro results at discharge 07/27/20 11:15 Blood Culture - Preliminary Blood 07/27/20 11:10 Blood Culture - Preliminary Blood 07/27/20 18:23 Gram Stain - Preliminary Sputum source - Induced Sputum Culture - Preliminary Streptococcus pneumoniae 07/27/20 18:23 Fungal Smear - Preliminary Sputum source - Induced Discharge Plan Patient/Caregiver Discharge Instructions Activity: increase activity as tolerated Diet: Regular Diet and Consistent Carbohydrate Activity Restrictions/Additional Instructions: Follow-up with PCP in 3 to 7 days Referral to see supervisor cloth winding in 1 to 2 weeks for atrial fibrillation Patient will be evaluated by respiratory therapist for home oxygen. Prescriptions: New cefdinir 300 mg capsule 300 mg PO BID Qty: 8 RF: 0 prednisone 10 mg tablet 30 mg PO QDAY Qty: 1 RF: 0 diltiazem HCl 30 mg Tablet 60 mg PO Q8H Qty: 90 RF: 0 Eliquis 5 mg tablet 5 mg PO BID Qty: 60 RF: 0 Continued ipratropium-albuterol 0.5 mg-3 mg(2.5 mg base)/3 mL solution for nebulization 3 ml INHALATION Q4H PRN (Reason: Shortness Of Breath Or Wheezing) RF: 0 simvastatin 10 mg tablet 5 mg PO QDAY RF: 0 gabapentin 300 mg capsule 300 mg PO QDAY RF: 0 albuterol sulfate 90 mcg/actuation HFA aerosol inhaler 2 puff INHALATION Q4H PRN (Reason: Shortness Of Breath Or Wheezing) RF: 0 budesonide-formoterol [Symbicort] 160-4.5 mcg/actuation HFA aerosol inhaler 1 puff INHALATION QDAY RF: 0 Breo Ellipta 200-25 mcg/dose Blister With Device 1 inh INHALATION QDAY RF: 0 Discontinued prednisone 10 mg Tablet 10 mg PO BID RF: 0 Follow Up Plan Patient Disposition: Home, Self-Care Prognosis: Fair Overall status at discharge: patient is progressing back to baseline Discharge Orders: Discharge Order (Routine); Ordered 07/31/20 Ordered By: Cristobal Leal [facility] VTE Deep Vein Thrombosis/Pulmonary Embolism Present on Admission: No
[2020-07-30] MEDS ORDERED: METOPROLOL TARTRATE 5 MG/5 ML VIAL IV PRN (13:25)
[2020-07-30 14:17] LABS: Mitogen - NIL 0.11 IU/mL; NIL 0.01 IU/mL; Quant TB Gold + 4T Incubated INDETERMINATE (NEGATIVE)
[2020-07-30] MEDS: DILTIAZEM 30 MG TABLET PO SCH ×2 (15:19→21:07)
[2020-07-30] MEDS: 0.9 % SODIUM CHLORIDE 250 ML IV SCH ×2 (15:31→22:36)
[2020-07-30] MEDS: DILTIAZEM 125 MG in DEXTROSE 5% IN WATER 100 ML IV SCH ×2 (15:31→21:48)
[2020-07-30 18:26] LABS: Legionella pneumophilia Ag, Ur NOT DETECTED
[2020-07-30] MEDS: APIXABAN 5 MG TABLET PO SCH (21:07)
[2020-07-30] MEDS: MELATONIN 3 MG TABLET PO PRN (21:07)
[2020-07-30] MEDS: SENNOSIDES/DOCUSATE SODIUM 1 TAB TABLET PO SCH (21:48)
[2020-07-30] MEDS: LORazepam 2 MG/ML VIAL IV PRN (22:38)
[2020-07-31] MEDS: IPRATROPIUM/ALBUTEROL 3 ML AMPUL.NEB NEB SCH ×4 (03:00→14:28)
[2020-07-31] MEDS: 0.9 % SODIUM CHLORIDE 10 ML SYRINGE IV SCH ×2 (05:59→14:09)
[2020-07-31] MEDS: DILTIAZEM 30 MG TABLET PO SCH ×2 (06:01→14:10)
[2020-07-31] MEDS: DILTIAZEM 125 MG in DEXTROSE 5% IN WATER 100 ML IV SCH (07:24)
[2020-07-31] MEDS: DOCUSATE SODIUM 100 MG CAPSULE PO SCH (07:25)
[2020-07-31] MEDS: predniSONE 20 MG TABLET PO SCH (07:32)
[2020-07-31] MEDS: CEFEPIME 2 GM VIAL IV SCH (07:32)
[2020-07-31] MEDS: THIAMINE 100 MG TABLET PO SCH (07:33)
[2020-07-31] MEDS: APIXABAN 5 MG TABLET PO SCH (07:33)
[2020-07-31] MEDS: FLUTICASONE PROPIONATE SPRAY.NAS NS SCH (07:34)
[2020-07-31] MEDS: MULTIVIT,THER IRON,CA,FA & MIN 1 TABLET PO SCH (07:34)
[2020-07-31] MEDS: SIMVASTATIN 10 MG TABLET PO SCH (07:34)
[2020-07-31] MEDS: GABAPENTIN 300 MG CAPSULE PO SCH (07:34)
--- NOTE | 2020-07-31 08:07 | Internal Med Progress Note ---
SUBJECTIVE Subjective Patient information: Note initiated : 07/31/20 at 8:05 am Service Date, if different from initiated Date: [] Patient: Celestine Beatty a 70 y/o M admitted on 07/27/20 for shortness of breath. Chief Complaint: [] Interval history: History of present illness: Mr. Beatty is a 70 year old M active smoker and with a history of COPD nonoxygen dependent was fairly independent and was living in [facility] since late last year. He has visited [place] couple of times during the last 6 months. He moved back to the [place] after [place]. Over the last 4 days he has noted increasing shortness of breath/weakness/increasing yellow productive sputum, chills and sweats. He became increasing concerned about his symptoms and presented to the ER. He endorses to his dog being sick with [place] fever. He was noted with gland swe lling around the neck and has been on treatment for the last 7 months. Initial work-up in the ER was consistent with severe sepsis/hypoxic respiratory failure requiring oxygen mask to maintain sats. He was started on noninvasive ventilation due to increased work of breathing and inability to talk. Patient responded to bronchodilators, antibiotics/antifungals were initiated after cultures were drawn. Hospitalist service was consulted for admission At the time of my evaluation patient is very anxious, distressed unable to talk in full sentences. He was able to endorse history as above. He denies sick contacts. He denies weight loss, hemoptysis, glandular swelling. Continues to actively smoke a pack a day. Additionally denies diarrhea, dysuria, joint swelling or rash 07/28-patient doing better since previous day. Currently on noninvasive ventilation. White count downtrending to 24 from 48.5, creatinine improved to 0.7, improving endorgan dysfunction. Stable hemodynamics. Requiring 30% FiO2 to maintain sats 92%. Ongoing bronchodilators/steroids. MRSA nasal swab negative. Vancomycin discontinued. Continue cefepime. ID on board. 07/29-patient in severe respiratory distress. Frequent coughing spells. However interval chest imaging improving since admission. A. fib RVR noted. Did not respond to beta-maria elena, start Cardizem/digoxin load if blood pressure not amenable to CCB. Continue antibiotic coverage. Very anxious and labored. Intermittent BiPAP. Lower steroid dose to once daily, white count 23, creatinine 0.6, phosphorus 2.1 on replacement.Remains critically ill 07/30-patient doing remarkably well. White count down to 17.5. Much improved work of breathing. Able to talk in full sentences. Off noninvasive ventilation since last evening. Renal function stable, ongoing phosphorus replacement, PT OT/nutrition supplements, cultures negative so far, no overnight fever chills. A. fib RVR well controlled on diltiazem drip. Transition to oral diltiazem. Hemodynamic stable. 07/31 Constitutional Vitals: Vital Signs Temp Pulse Resp BP Pulse Ox 97.1 F 85 22 146/85 92 07/31/20 08:00 07/31/20 00:05 07/31/20 00:00 07/31/20 08:00 07/31/20 08:00 Period Temp Pulse Resp BP Sys/Mccl[place]on Pulse Ox Last 24 Hr 97.1 F-97.7 F 85-134 18-22 95-146/72-93 86-100 Intake and Output 07/30/20 07/31/20 07/31/20 21:59 05:59 13:59 Intake Total 665 Output Total 820 1195 225 Balance -820 -530 -225 Weight 63.503 kg Intake & Output: Intake & Output 07/30/20 07/31/20 07/31/20 21:59 05:59 13:59 Intake Total 665 Output Total 820 1195 225 Balance -820 -530 -225 Weight 63.503 kg Intake: Oral 665 Output: Void Amount 820 1195 225 Other: Meal Dinner Percent of Meal Consumed 100% Urine Appearance Clear Clear Clear Urine Color Straw Straw Pale Urine Odor Normal Normal Exam: General: Alert, Awake, No acute Distress Eyes/N/T: EOMI, Head/Neck: neck supple, CV: irreg irreg, No murmurs, Pulm: b/l rhonchi/wheeze Abd: soft, nontender, +BS x4 Ext: no clubbing/cyanosis/edema Neuro: Alert, no focal deficits, moves all extremities, Skin: warm/dry OBJ DATA Labs CBC & Chem 7: 07/31/20 04:59 07/31/20 04:59 Labs: Abnormal Lab Results 07/30/20 07/30/20 07/29/20 05:05 05:05 04:50 WBC 17.5 H RBC 3.84 L Hgb 12.0 L Hct 37.8 L RDW 15.8 H MPV 11.5 H Neut % (Auto) 88.2 H Lymph % (Auto) 5.0 L Lymph # (Auto) 0.87 L [place] # (Auto) 1.17 H Absolute Neutrophils 15.43 H Anion Gap 5.0 L 7.0 L BUN 31 H 28 H Creatinine 0.6 L 0.6 L Glucose 142 H 177 H Calcium 8.3 L 8.3 L Phosphorus 1.9 L 2.1 L GGT 76 H AST 63 H 67 H ALT 124 H 48 H Total Protein 5.7 L 5.7 L Albumin 2.6 L 2.8 L Albumin/Globulin Ratio 0.8 L Triglycerides 163 H TB (QFT) Gold In Tube 07/29/20 07/27/20 04:50 18:21 WBC 23.0 H RBC 3.78 L Hgb 12.1 L Hct 36.8 L RDW 15.6 H MPV 11.3 H Neut % (Auto) 94.2 H Lymph % (Auto) 2.0 L Lymph # (Auto) 0.46 L [place] # (Auto) Absolute Neutrophils 21.69 H Anion Gap BUN Creatinine Glucose Calcium Phosphorus GGT AST ALT Total Protein Albumin Albumin/Globulin Ratio Triglycerides TB (QFT) Gold In Tube Indeterminate A Meds: Medications Acetaminophen (Acetaminophen 325 Mg Tablet) 650 mg PO Q4-6HP PRN; Protocol PRN Reason: Per Pain Protocol/Fever > 101 Albuterol/Ipratropium (Ipratropium/Albuterol 3 Ml Ampul.Neb) 3 ml NEB Q4HRT [facility] Last Admin: 07/31/20 07:09 Dose: 3 ml Documented by: Apixaban (Apixaban 5 Mg Tablet) 5 mg PO BID [facility] Last Admin: 07/31/20 07:33 Dose: 5 mg Documented by: Bisacodyl (Bisacodyl 10 Mg Supp.Rect) 10 mg SC Q2-3DAYS PRN PRN Reason: Constipation Cefepime HCl (Cefepime 2 Gm Vial) 2 gm IV Q12H [facility] Last Admin: 07/31/20 07:32 Dose: 2 gm Documented by: Diltiazem HCl (Diltiazem 30 Mg Tablet) 60 mg PO Q8H [facility] Last Admin: 07/31/20 06:01 Dose: 60 mg Documented by: Docusate Sodium (Docusate Sodium 100 Mg Capsule) 100 mg PO BID [facility] Last Admin: 07/31/20 07:25 Dose: Not Given Documented by: Fluticasone Propionate (Fluticasone Propionate Tyro.Estevan) 2 spray NS DAILY [facility] Last Admin: 07/31/20 07:34 Dose: 2 spray Documented by: Gabapentin (Gabapentin 300 Mg Capsule) 300 mg PO QDAY [facility] Last Admin: 07/31/20 07:34 Dose: 300 mg Documented by: Guaifenesin/Codeine Phosphate (Guaifenesin/Codeine 10 Ml Udc) 10 ml PO Q4HP PRN PRN Reason: Cough Acetaminophen (Ofirmev) 650 mg in 65 mls @ 130 mls/hr IV Q6HP PRN; Protocol PRN Reason: Per Pain Protocol/Fever > 101 Magnesium Sulfate (Magnesium Sulfate) 2 gm in 50 mls @ 50 mls/hr IV UD PRN PRN Reason: MG = or < 1.7 Potassium Chloride 40 meq/ (Dextrose) 520 mls @ 130 mls/hr IV UD PRN PRN Reason: K+ = or < 3.5 Diltiazem HCl 125 mg/ Dextrose 125 mls @ 5 mls/hr IV Q12H [facility]; Protocol Last Admin: 07/31/20 07:24 Dose: Not Given Documented by: Sodium Chloride (Sodium Chloride 0.9%) 250 mls @ 20 mls/hr IV .[id number] [facility] Last Admin: 07/30/20 22:36 Dose: Not Given Documented by: Iron Carb/Multivit/Cutter Operator Helper/Folic Acid (Multivit,Ther Iron,Ca,Fa & Min 1 Tablet) 1 tab PO DAILY [facility] Last Admin: 07/31/20 07:34 Dose: 1 tab Documented by: Lorazepam (Lorazepam 2 Mg/Ml Vial) 0.5 mg IV Q6HP PRN PRN Reason: ANXIETY/SEDATION Last Admin: 07/30/20 22:38 Dose: 0.5 mg Documented by: Melatonin (Melatonin 3 Mg Tablet) 3 mg PO HSP PRN PRN Reason: Insomnia Last Admin: 07/30/20 21:07 Dose: 3 mg Documented by: Metoprolol Tartrate (Metoprolol Tartrate 5 Mg/5 Ml Vial) 5 mg IV Q2HP PRN PRN Reason: Tachyarrhythmias HR>110 Nicotine (Nicotine 21 Mg Patch) 21 mg TOPICAL DAILY@1000 [facility] Last Admin: 07/30/20 10:21 Dose: 21 mg Documented by: Ondansetron HCl (Ondansetron 4 Mg Odt Tablet) 4 mg SL Q4-6HP PRN; Protocol PRN Reason: Nausea And Vomiting Ondansetron HCl (Ondansetron 4 Mg/2 Ml Vial) 4 mg IV Q4-6HP PRN; Protocol PRN Reason: Nausea And Vomiting Polyethylene Glycol (Polyethylene Glycol 3350 17 Gm Packet) 17 gm PO DAILYP PRN PRN Reason: Constipation Potassium Chloride (Potassium Chloride 20 Meq Packet) 40 meq PO DAILYP PRN PRN Reason: K+ < 3.5 Potassium/Phosphorus/Sodium (Neutra Phos 1 Packet) 2 packet PO ONCE PRN PRN Reason: For phosphorus less than 2.5 Last Admin: 07/30/20 09:42 Dose: 2 packet Documented by: Prednisone (Prednisone 20 Mg Tablet) 40 mg PO [facility] Last Admin: 07/31/20 07:32 Dose: 40 mg Documented by: Senna/Docusate Sodium (Sennosides/Docusate Sodium 1 Tab Tablet) [address] [facility] Last Admin: 07/30/20 21:48 Dose: Not Given Documented by: Simvastatin (Simvastatin 10 Mg Tablet) 5 mg PO QDAY [facility] Last Admin: 07/31/20 07:34 Dose: 5 mg Documented by: Sodium Chloride (0.9 % Sodium Chloride 10 Ml Syringe) 10 ml IV Q8 [facility] Last Admin: 07/31/20 05:59 Dose: 10 ml Documented by: Thiamine HCl (Thiamine 100 Mg Tablet) 100 mg PO DAILY [facility] Last Admin: 07/31/20 07:33 Dose: 100 mg Documented by: A/P Narrative A/P Narrative: A: *Severe sepsis with endorgan dysfunction/hypotension: *DELISA PNA(strep): clinical improvement *COPD exacerbation: continue bronchodilators/p.o. steroids/supplemental oxygen *Acute on chronic hypoxic respiratory failure: secondary to above -Off noninvasive ventilation -0-2L oxygen *AFib RVR: secondary sepsis endorgan dysfunction. Responded well to digoxin/calcium channel maria elena. Transition to oral diltiazem. CHADS Vasc score mandating anticoagulation *Low phosphorus: *Severe anxiety: use as needed benzodiazepine *Neuropathy: continue gabapentin *Tobacco abuse: Plan: -Continue sepsis management per guidelines -Transition to oral CCB -Antibiotics to continue through 08/04 -Phosphorus replacement -As needed benzodiazepine -Bronchodilators/oral steroid -PT OT nutrition support -Prophylaxis: Heparin Time Spent With Patient Time: Total time spent is greater than 50% in coordination of care (as documented) at patient's floor/unit and/or counseling patient: QUALITY VTE Deep Vein Thrombosis/Pulmonary Embolism Present on Admission: No
[2020-07-31 08:31] LABS: Basophils # (Auto) 0.04 K/mcL (0.00-0.20); Basophils % (Auto) 0.3 % (0.0-2.0); Eosinophils # (Auto) 0.01 K/mcL (0.00-0.70); Eosinophils % (Auto) 0.1 % (0.0-7.0); Hematocrit 38.9 % (41.0-55.0); Hemoglobin 12.3 g/dL (13.5-16.5); Lymphocytes # (Auto) 1.11 K/mcL (1.50-4.80); Lymphocytes % (Auto) 7.4 % (15.0-49.0); Mean Cell Volume 98.7 fL (80.0-100.0); Mean Corpuscular HGB Conc 31.6 g/dL (31.0-36.0); Monocytes # (Auto) 1.36 K/mcL (0.10-0.90); Neutrophils % (Auto) 83.2 % (38.0-78.0); Platelet Count 301 K/mcL (140-440); RBC 3.94 M/mcL (4.50-5.90); Red Cell Distribution Width 15.7 % (11.5-14.5); WBC 15.1 K/mcL (4.5-11.0)
[2020-07-31 08:41] LABS: ALT/SGPT 99 U/L (<40); AST/SGOT 29 U/L (<40); Albumin 2.7 gm/dL (3.2-5.2); Albumin/Globulin Ratio 0.9 (1.0-2.3); Alkaline Phosphatase 91 U/L (39-117); Bilirubin,Direct < 0.2 mg/dL (0-0.3); Bilirubin,Total 0.2 mg/dL (0.1-1.0); Blood Urea Nitrogen 21 mg/dL (8-23); Calcium 8.6 mg/dL (8.6-10.4); Carbon Dioxide 32 mmol/L (22-30); Chloride 99 mmol/L (96-108); Glomerular Filtration Rate 111; Glucose 100 mg/dL (70-105); Lactate Dehydrogenase 194 U/L (135-225); Phosphorous 2.1 mg/dL (2.5-4.5); Triglycerides 104 mg/dL (<150); Uric Acid 3.9 mg/dL (2.5-8.0)
[2020-07-31] MEDS: 0.9 % SODIUM CHLORIDE 250 ML IV SCH (10:30)
[2020-07-31] MEDS: NICOTINE 21 MG PATCH TOPICAL SCH (10:35)
--- NOTE | 2020-08-02 12:35 | EKG ---
[facility] Test Date: 2020-07-30 Pat Name: Celestine Beatty Department: ICU Room: 120A Gender: Male Lifestyle Block Farmer: : 1950 Requested By: Cristobal Leal Order Number: [id number] Reading MD: Errol Concepcion M.D. Measurements Intervals [place] Rate: 90 P: 78 [place]: 100 QRS: 16 QRSD: 98 T: 60 QT: 360 QTc: 441 Interpretive Statements SINUS RHYTHM SHORT [place] INTERVAL, ACCELERATED AV CONDUCTION BORDERLINE T ABNORMALITIES, ANT-LAT LEADS Since previous ECG of 07-29-2020, RSR, Short [place], NSST-T CHANGES Electronically Signed On 08-02-2020 12:35:36 PDT by Errol Concepcion M.D. /store/M0/[id number]
== END 2020-07-31 15:40 | disposition home or self-care (01) | DRG 871 ==
LOC: ED 10:08 → ICU 14:30
PROVIDERS: ADMIT Internal Medicine; ATTEND Internal Medicine

== ENCOUNTER 2021-02-13 07:41 | Inpatient (IN) ==
--- NOTE | 2021-02-13 07:46 | Emergency Department Note ---
SOB HPI General Chief Complaint: Shortness of Breath/Dyspnea Stated Complaint: shortness of breath, racing heart, poss uti Time Seen by Provider: 02/13/21 07:46 Source: patient Mode of arrival: wheelchair Limitations: no limitations History of Present Illness HPI Narrative: Narrative: 71-year-old male presents to the emerge department because he has been struggling to breathe for the past 2 days. Nothing he seems to do makes it better. He has a history of COPD and asthma and feels that it is in the exacerbation of those. Symptoms are constant. He has associated fever. There is no referral of the symptoms elsewhere. Patient states fever began yesterday mild but is higher today. Patient states that he has had his Covid vaccine as well as his booster. Related Data Home Medications Medication Instructions Recorded Confirmed albuterol sulfate 90 mcg/actuation 2 puff INHALATION Q4H PRN 07/27/20 02/13/21 aerosol inhaler gabapentin 300 mg capsule 300 mg PO QDAY 07/27/20 02/13/21 ipratropium 0.5 mg-albuterol 3 mg 3 ml INHALATION Q4H PRN 07/27/20 02/13/21 (2.5 mg base)/3 mL nebulization soln simvastatin 10 mg tablet 5 mg PO QDAY 07/27/20 02/13/21 budesonide 0.5 mg/2 mL suspension 0.5 mg INHALATION BID ml 08/20/20 02/13/21 for nebulization diltiazem HCl 180 mg 180 mg PO QDAY cap 08/20/20 02/13/21 capsule,extended release 24 hr formoterol fumarate 20 mcg/2 mL 2 ml INHALATION BID ml 08/20/20 02/13/21 solution for nebulization oxygen 08/20/20 02/13/21 diphenhydramine 25 1 tab PO QHS PRN 02/10/21 02/13/21 mg-acetaminophen 500 mg tablet fluconazole 200 mg tablet 400 mg PO QDAY tab 02/10/21 02/13/21 carboxymethylcellulose sodium 1 % 1 drp OPHTHALMIC (EYE) BID PRN 02/13/21 1 04/16/20 eye liquid gel drops Previous Rx's Medication Instructions Recorded apixaban 5 mg tablet (Eliquis) 5 mg PO BID #60 tab 07/30/20 Allergies Allergy/AdvReac Type Severity Reaction Status Date / Time fluoxetine [From Prozac] AdvReac Severe suicidal Verified 02/13/21 18:39 ideation Review of Systems ROS ROS Narrative: Narrative: Constitutional: Reports fever Eyes: Denies eye pain ENT ED: Denies throat pain Cardiovascular: Reports dyspnea on exertion Respiratory: Reports shortness of breath and cough Gastrointestinal: Denies nausea or vomiting Genitourinary: Reports dysuria Musculoskeletal: Denies back pain Integumentary: Denies rash Psychiatric: Denies anxiety or depression PFS Narrative Patient History Narrative: Narrative: Medical/Surgical/Family History All Active Problems (Updated 02/13/21 @ 19:25 by Dwayne Thakkar MD) Acute exacerbation of chronic obstructive pulmonary disease (Acute) Acute bronchospasm (Acute) Upper respiratory infection, viral (Acute) Mixed dyslipidemia (Acute) Permanent atrial fibrillation (Acute) Sepsis (Acute) Community acquired pneumonia (Acute) T2DM (type 2 diabetes mellitus) (Acute) COPD exacerbation (Acute) COPD (chronic obstructive pulmonary disease) (Chronic) CAD (coronary artery disease) (Chronic) Multiple pulmonary nodules (Chronic) Afib (Chronic) Neuropathy (Chronic) Tobacco dependence in remission (Chronic) (HFpEF) heart failure with preserved ejection fraction (Chronic) Pulmonary hypertension (Chronic) Hypersomnia (Chronic) Snoring (Chronic) GERD (gastroesophageal reflux disease) (Chronic) Osteoarthritis (Chronic) Sleep apnea (Chronic) Hyperlipidemia (Chronic) Bilateral inguinal hernia (Chronic) Medicare annual wellness visit, initial (Acute) Inguinal hernia (Chronic) Elevated hemoglobin A1c (Acute) Cavitary lesion of lung (Chronic) Coccidioidomycosis, primary pulmonary (Acute) Skin lesion of face (Chronic) Medical History (HFpEF) heart failure with preserved ejection fraction Afib Bilateral inguinal hernia CAD (coronary artery disease) Cavitary lesion of lung Coccidioidomycosis, primary pulmonary COPD (chronic obstructive pulmonary disease) Elevated hemoglobin A1c GERD (gastroesophageal reflux disease) Hyperlipidemia Hypersomnia Inguinal hernia Medicare annual wellness visit, initial Multiple pulmonary nodules Neuropathy Osteoarthritis Spine and shoulders Pulmonary hypertension Moderate ECHO 07/2020 Pulmonary infiltrate with cavitation Skin lesion of face Sleep apnea Snoring SOB (shortness of breath) Tobacco dependence in remission Surgical History History of reverse total replacement of shoulder joint (~2019) History of shoulder surgery Repair x 3 Family History Father Cancer Mother High blood pressure Brother High blood pressure Social History Smoking Status: Former smoker Alcohol Intake Frequency: former alcohol drinker Substance Use: marijuana Exam Narrative Narrative: Narrative: General Limitations: no limitations General appearance: Present alert and in distress (Severe distress) Head Head: Present atraumatic, normocephalic and normal inspection Eye Eye: Present normal appearance and EOMI ENT ENT: Present mucous membranes dry Neck Neck: Present normal inspection and trachea midline Respiratory Respiratory: Present respiratory distress, rales/crackles and wheezes Cardiovascular Cardiovascular: Present normal rhythm and tachycardia Adbominal Abdominal: Present soft Back Back: Absent tenderness Neurological Neurological: Present alert and oriented X3 Psychiatric Psychiatric: Present normal affect and normal mood Skin Skin: Present warm (WNL) and dry Course Vital Signs Vital signs: Vital Signs Pulse Rate 143 H 02/13/21 07:41 Respiratory Rate 30 H 02/13/21 07:41 Blood Pressure 114/83 02/13/21 07:41 Pulse Oximetry (%) 95 02/13/21 07:41 Temperature 96.9 F L 02/13/21 16:01 Pulse Rate 91 H 02/13/21 18:40 Respiratory Rate 19 02/13/21 18:40 Blood Pressure 109/73 02/13/21 18:01 Pulse Oximetry (%) 94 02/13/21 18:40 MDM MDM Narrative Medical decision making narrative: Narrative: Elderly male presents to the emerge department in severe respiratory distress. Patient has pre-existing COPD and asthma. Patient uses CPAP. Differential diagnosis included pneumonia pneumothorax Covid infection influenza acute exacerbation COPD pulmonary edema bronchospasm, other Patient arrived with a temperature of 102.8 and a heart rate of 143. Respiratory rate was 30. Covid test was performed and that was negative. Influenza test was performed and that was negative. Chest x-ray showed nons specific inflammatory changes at the bases. White count was elevated at 25,000 with a hemoglobin of 14.9 and a platelet count of 371. Lactate level was normal at 1.7. Bicarb is 21 glucose was 100 BUN of 27 and creatinine 0.9 suggesting dehydration. Urinalysis was negative. Patient received albuterol nebulized treatment with Atrovent because of the wheezes in his lungs. On reevaluation that had improved. His heart rate did come down to the high 90s and he stated he was feeling better though he was still working somewhat hard to breathe. Patient required hospitalization. I called hospitalist and he accepted patient. Lab Data Result diagrams: 02/13/21 07:56 02/13/21 07:56 Labs: Lab Results 02/13/21 02/13/21 02/13/21 Range/Units 07:56 07:56 07:56 WBC 25.1 H (4.5-11.0) K/mcL RBC 4.64 (4.63-6.08) M/mcL Hgb 14.9 (13.7-17.5) g/dL Hct 44.8 (40.1-51.0) % MCV 96.6 (80.0-100.0) fL MCH 32.1 (26.0-34.0) pg MCHC 33.3 (31.0-36.0) g/dL RDW 16.0 H (11.5-14.5) % Plt Count 371 (140-440) K/mcL MPV 10.3 (7.4-10.4) fL Neut % (Auto) 88.1 H (38.0-78.0) % Lymph % (Auto) 5.5 L (15.5-49.0) % [place] % (Auto) 6.1 (1.0-12.0) % Eos % (Auto) 0.1 (0.0-7.0) % Baso % (Auto) 0.2 (0.0-2.0) % Lymph # (Auto) 1.37 L (1.50-4.80) K/mcL [place] # (Auto) 1.53 H (0.10-0.90) K/mcL Eos # (Auto) 0.03 (0.00-0.70) K/mcL Baso # (Auto) 0.05 (0.00-0.30) K/mcL Absolute Neutrophils 22.13 H (1.80-8.00) K/mcL VBG Lactic Acid 1.7 (0.5-2.0) mmol/L Sodium 133 (133-145) mmol/L Potassium 4.4 (3.3-5.1) mmol/L Chloride 97 (96-108) mmol/L Carbon Dioxide 21 L (22-30) mmol/L Anion Gap 15.0 (8.0-16.0) BUN 27 H (8-23) mg/dL Creatinine 0.9 (0.7-1.2) mg/dL GFR Calculation 87 Glucose 100 (70-105) mg/dL Calcium 9.0 (8.6-10.4) mg/dL Total Bilirubin 0.3 (0.1-1.0) mg/dL AST 19 (<40) U/L ALT 15 (<40) U/L Alkaline Phosphatase 70 (39-117) U/L Total Protein 6.9 (5.9-8.4) gm/dL Albumin 3.4 (3.2-5.2) gm/dL Globulin 3.5 (2.2-3.7) gm/dL Albumin/Globulin Ratio 1.0 (1.0-2.3) Procalcitonin (<0.10) ng/mL Urine Color Urine Appearance (Clear) Urine pH (5.0-9.0) Ur Specific [place] (1.000-1.035) Urine Protein (Negative) mg/dL Urine Glucose (UA) (Negative) mg/dL Urine Ketones (Negative) mg/dL Urine Occult Blood (Negative) mg/dL Urine Nitrate (Negative) Urine Bilirubin (Negative) mg/dL Urine Urobilinogen mg/dL Ur Leukocyte Esterase (Negative) /uL Urine RBC (0-3) /hpf Urine WBC (0-4) /hpf Ur Squamous Epith Cells (0-4) /hpf Ur Transition Epith Cell (0-2) /hpf Urine Bacteria (0) /hpf Hyaline Casts (0-2) /lph Granular Casts (0-0) /lph Urine Mucus (None) /hpf Ur Culture Indicated? 02/13/21 02/13/21 Range/Units 07:56 08:45 WBC (4.5-11.0) K/mcL RBC (4.63-6.08) M/mcL Hgb (13.7-17.5) g/dL Hct (40.1-51.0) % MCV (80.0-100.0) fL MCH (26.0-34.0) pg MCHC (31.0-36.0) g/dL RDW (11.5-14.5) % Plt Count (140-440) K/mcL MPV (7.4-10.4) fL Neut % (Auto) (38.0-78.0) % Lymph % (Auto) (15.5-49.0) % [place] % (Auto) (1.0-12.0) % Eos % (Auto) (0.0-7.0) % Baso % (Auto) (0.0-2.0) % Lymph # (Auto) (1.50-4.80) K/mcL [place] # (Auto) (0.10-0.90) K/mcL Eos # (Auto) (0.00-0.70) K/mcL Baso # (Auto) (0.00-0.30) K/mcL Absolute Neutrophils (1.80-8.00) K/mcL VBG Lactic Acid (0.5-2.0) mmol/L Sodium (133-145) mmol/L Potassium (3.3-5.1) mmol/L Chloride (96-108) mmol/L Carbon Dioxide (22-30) mmol/L Anion Gap (8.0-16.0) BUN (8-23) mg/dL Creatinine (0.7-1.2) mg/dL GFR Calculation Glucose (70-105) mg/dL Calcium (8.6-10.4) mg/dL Total Bilirubin (0.1-1.0) mg/dL AST (<40) U/L ALT (<40) U/L Alkaline Phosphatase (39-117) U/L Total Protein (5.9-8.4) gm/dL Albumin (3.2-5.2) gm/dL Globulin (2.2-3.7) gm/dL Albumin/Globulin Ratio (1.0-2.3) Procalcitonin 0.60 H (<0.10) ng/mL Urine Color Yellow Urine Appearance Hazy A (Clear) Urine pH 5.0 (5.0-9.0) Ur Specific [place] 1.019 (1.000-1.035) Urine Protein 30 A (Negative) mg/dL Urine Glucose (UA) 50 A (Negative) mg/dL Urine Ketones Negative (Negative) mg/dL Urine Occult Blood Negative (Negative) mg/dL Urine Nitrate Negative (Negative) Urine Bilirubin Negative (Negative) mg/dL Urine Urobilinogen Negative mg/dL Ur Leukocyte Esterase Negative (Negative) /uL Urine RBC 2 (0-3) /hpf Urine WBC 2 (0-4) /hpf Ur Squamous Epith Cells < 1 (0-4) /hpf Ur Transition Epith Cell < 1 (0-2) /hpf Urine Bacteria None (0) /hpf Hyaline Casts 1 (0-2) /lph Granular Casts 1 H (0-0) /lph Urine Mucus Few A (None) /hpf Ur Culture Indicated? No ED POC Tests ED POC Tests: ZAFAR - Influenza A Negative ZAFAR - Influenza B Negative ZAFAR - SARS Antigen Negative Discharge Plan Patient/Caregiver Discharge Instructions Pt seen by PATENT CLERK/PA only: No Clinical Impression: Acute exacerbation of chronic obstructive pulmonary disease, Acute bronchospasm, Upper respiratory infection, viral Patient Disposition: Xfer As Inpt ([facility]) Condition: Fair Discharge Date/Time: 02/13/21 11:25
[2021-02-13] MEDS ORDERED: 0.9 % SODIUM CHLORIDE 1,000 ML IV ONE ×2 (07:49→07:52)
[2021-02-13] MEDS ORDERED: cefTRIAXone 1 GM VIAL IV ONE (08:06)
[2021-02-13] MEDS ORDERED: AZITHROMYCIN 500 MG in DEXTROSE 5% IN WATER 250 ML IV ONE (08:06)
[2021-02-13] MEDS ORDERED: ACETAMINOPHEN 325 MG TABLET PO ONE (08:09)
[2021-02-13] MEDS ORDERED: IPRATROPIUM/ALBUTEROL 3 ML AMPUL.NEB NEB ONE (08:13)
[2021-02-13] MEDS ORDERED: predniSONE 20 MG TABLET PO ONE (08:13)
[2021-02-13 08:47] LABS: Basophils # (Auto) 0.05 K/mcL (0.00-0.30); Basophils % (Auto) 0.2 % (0.0-2.0); Eosinophils # (Auto) 0.03 K/mcL (0.00-0.70); Eosinophils % (Auto) 0.1 % (0.0-7.0); Hematocrit 44.8 % (40.1-51.0); Hemoglobin 14.9 g/dL (13.7-17.5); Lymphocytes # (Auto) 1.37 K/mcL (1.50-4.80); Lymphocytes % (Auto) 5.5 % (15.5-49.0); Mean Cell Volume 96.6 fL (80.0-100.0); Mean Corpuscular HGB Conc 33.3 g/dL (31.0-36.0); Mean Platelet Volume 10.3 fL (7.4-10.4); Monocytes # (Auto) 1.53 K/mcL (0.10-0.90); Monocytes % (Auto) 6.1 % (1.0-12.0); Neutrophils % (Auto) 88.1 % (38.0-78.0); Platelet Count 371 K/mcL (140-440); RBC 4.64 M/mcL (4.63-6.08); WBC 25.1 K/mcL (4.5-11.0)
[2021-02-13 09:15] LABS: Appearance,Urine HAZY (Clear); Bilirubin,Urine Negative (Negative); Color,Urine YELLOW; Culture Indicated,Urine No; Glucose,Urine (UA) 50 mg/dL (Negative); Ketones,Urine Negative (Negative); Leukocyte Esterase,Urine Negative /uL (Negative); Mucus,Urine FEW /hpf; Nitrate,Urine Negative (Negative); Protein,Urine 30 mg/dL (Negative); Specific Gravity,Urine 1.019 (1.000-1.035); Urine Blood Negative (Negative); Urine Granular Cast 1 /lph (0-0); Urine Hyaline Cast 1 /lph (0-2); Urine RBC 2 /hpf (0-3); Urine Squamous Epithelial Cell < 1 /hpf (0-4); Urine Transitional Epi Cells < 1 /hpf (0-2); Urine WBC 2 /hpf (0-4); Urobilinogen,Urine Negative
--- NOTE | 2021-02-13 09:16 | XRay Report ---
HISTORY: Short of breath, tachycardia, COPD, lung masses and pulmonary cavitation FINDINGS: In the left upper lobe there is a 6.3 x 8.8 cm air-filled cavitary lesion. This contained a moderate size air-fluid level on the prior chest CT done on 09/27/20. There is dense consolidation of the surrounding lung parenchyma. There are two ill-defined nodular densities in the right upper lobe. The more superior of the two measures 1.5 x 2.7 cm and the inferior of the two is approximately 2.0 x 2.2 cm. These have diminished in size since the prior CT. On the prior CT there was also a cavitary mass laterally in the left lower lobe which has shrank, but there is still a residual bleb with some surrounding scar/inflammation. Patient has prominent increased interstitial lung markings bilaterally due to underlying moderate emphysema. No new infiltrate or new mass have developed. The heart size is normal. No pleural effusion is present. IMPRESSION: Nonspecific inflammatory changes in both lungs superimposed upon underlying moderate emphysema. Although there could be an underlying tumor, most of the nodules have diminished in size since 09/27/20. Interpreted and Authenticated by: Capo Garcia 02/13/21
[2021-02-13 09:25] LABS: ALT/SGPT 15 U/L (<40); AST/SGOT 19 U/L (<40); Albumin 3.4 gm/dL (3.2-5.2); Alkaline Phosphatase 70 U/L (39-117); Bilirubin,Total 0.3 mg/dL (0.1-1.0); Blood Urea Nitrogen 27 mg/dL (8-23); Carbon Dioxide 21 mmol/L (22-30); Chloride 97 mmol/L (96-108); Globulin 3.5 gm/dL (2.2-3.7); Glomerular Filtration Rate 87; Glucose 100 mg/dL (70-105)
--- NOTE | 2021-02-13 10:40 | Internal Med History&Physical ---
HPI History of Present Illness Patient information: Note initiated : 02/13/21 at 10:37 am Service Date, if different from initiated Date: [] Patient: Celestine Beatty a 71 y/o M admitted on for shortness of breath, racing heart, poss uti. Chief Complaint: [shortness of breath] History of present illness: Mr. Beatty is a 71 year old M history of atrial fibrillation on Eliquis, COPD with asthma on home oxygen as needed, mixed dyslipidemia, obstructive sleep apnea on CPAP, presenting with 2-day history of shortness of breath with cough with phlegm production with chest pain with wheezing with fever, chills, and diaphoresis. He is vaccinated against Covid pneumonia. Over the past 2 days, he is complaining of shortness of breath, productive cough with green phlegm productions, chest pain especially when he coughs, respiratory wheezings, fever with T-max 101, chills, and diaphoresis. He is also committing of inability to urinate for 1 week. He uses oxygen on a as needed basis. He uses CPAP at night for sleep for sleep apnea. Due to the worsening nature of his symptoms, he decided to come to our ED for further evaluations. Vital signs upon ED presentation significant for tachycardia and tachypnea with heart rate up to the 140s and rate of breathing in the mid 30s, respectively. Fever of T-max 39.4. He was also started on 5 L of oxygen's. Labs significant for leukocytosis with WBC 25.1. Lactic acid 1.7. Urine analysis does not suggest the presence of any UTI. Kelley negative. Chest x-ray showing nonspecific inflammatory changes in both lungs superimposed upon underlying moderate emphysema. Constitutional Constitutional: Present chills, excessive sweating, fatigue, fever(s) and weakness EENT Eyes: Absent blurry vision, change in vision, loss of vision or other visual disturbances Ears: Absent decreased hearing or tinnitus Nose, mouth and throat: Absent abnormal hearing, dry mouth, headache(s), nasal congestion or sore throat Cardiovascular Cardiovascular: Present chest pain; Absent chest pain at rest, edema, irregular heart rhythm or palpatations Respiratory Respiratory: Present cough, dyspnea, wheezing and excessive phlegm production Gastrointestinal Gastrointestinal: Absent abdominal pain, constipation, diarrhea, nausea or vomiting Genitourinary Genitourinary: difficulty urinating Musculoskeletal Musculoskeletal: Absent back pain, deformity, limited range of motion, muscle cramps, muscle weakness or numbness Integumentary Integumentary: Absent lesions, rash or wounds Neurological Neurological: Absent focal weakness, headache(s) or numbness Psychiatric Psychiatric: Absent anxiety, depression or hallucinations PFSH PFSH All Active Problems (Updated 02/13/21 @ 10:49 by Gustavo Blanca MD) Mixed dyslipidemia (Acute) Permanent atrial fibrillation (Acute) Sepsis (Acute) Community acquired pneumonia (Acute) T2DM (type 2 diabetes mellitus) (Acute) COPD exacerbation (Acute) COPD (chronic obstructive pulmonary disease) (Chronic) CAD (coronary artery disease) (Chronic) Multiple pulmonary nodules (Chronic) Afib (Chronic) Neuropathy (Chronic) Tobacco dependence in remission (Chronic) (HFpEF) heart failure with preserved ejection fraction (Chronic) Pulmonary hypertension (Chronic) Hypersomnia (Chronic) Snoring (Chronic) GERD (gastroesophageal reflux disease) (Chronic) Osteoarthritis (Chronic) Sleep apnea (Chronic) Hyperlipidemia (Chronic) Bilateral inguinal hernia (Chronic) Medicare annual wellness visit, initial (Acute) Inguinal hernia (Chronic) Elevated hemoglobin A1c (Acute) Cavitary lesion of lung (Chronic) Coccidioidomycosis, primary pulmonary (Acute) Skin lesion of face (Chronic) Medical History (Updated 02/13/21 @ 10:49 by Gustavo Blanca MD) (HFpEF) heart failure with preserved ejection fraction Afib Bilateral inguinal hernia CAD (coronary artery disease) Cavitary lesion of lung Coccidioidomycosis, primary pulmonary COPD (chronic obstructive pulmonary disease) Elevated hemoglobin A1c GERD (gastroesophageal reflux disease) Hyperlipidemia Hypersomnia Inguinal hernia Medicare annual wellness visit, initial Multiple pulmonary nodules Neuropathy Osteoarthritis Spine and shoulders Pulmonary hypertension Moderate ECHO 07/2020 Pulmonary infiltrate with cavitation Skin lesion of face Sleep apnea Snoring SOB (shortness of breath) Tobacco dependence in remission Surgical History History of reverse total replacement of shoulder joint (~2019) History of shoulder surgery Repair x 3 Family History Father Cancer Mother High blood pressure Brother High blood pressure Social History household members: spouse lives independently: Yes marital status: occupational status: retired occupation: Retired from [employer] in [employer]. pets and animals: Yes (1 dog.) pets and animals: dog(s) smoking status: Former smoker quit date: 07/31/20 pack-years: 50 alcohol intake frequency: former alcohol drinker substance use type: marijuana MEDS/ALLERGIES Home Medications and Allergies Home Medications Medication Instructions Recorded Confirmed Type albuterol sulfate 90 mcg/actuation 2 puff INHALATION Q4H PRN 07/27/20 02/13/21 History aerosol inhaler gabapentin 300 mg capsule 300 mg PO QDAY 07/27/20 02/13/21 History ipratropium 0.5 mg-albuterol 3 mg 3 ml INHALATION Q4H PRN 07/27/20 02/13/21 History (2.5 mg base)/3 mL nebulization soln simvastatin 10 mg tablet 5 mg PO QDAY 07/27/20 02/13/21 History apixaban 5 mg tablet (Eliquis) 5 mg PO BID #60 tab 07/30/20 02/13/21 Rx budesonide 0.5 mg/2 mL suspension 0.5 mg INHALATION BID ml 08/20/20 02/13/21 History for nebulization diltiazem HCl 180 mg 180 mg PO QDAY cap 08/20/20 02/13/21 History capsule,extended release 24 hr formoterol fumarate 20 mcg/2 mL 2 ml INHALATION BID ml 08/20/20 02/13/21 History solution for nebulization oxygen 08/20/20 02/13/21 History diphenhydramine 25 1 tab PO QHS PRN 02/10/21 02/13/21 History mg-acetaminophen 500 mg tablet fluconazole 200 mg tablet 400 mg PO QDAY tab 02/10/21 02/13/21 History Allergies Allergy/AdvReac Type Severity Reaction Status Date / Time fluoxetine [From Prozac] AdvReac Severe suicidal Verified 02/13/21 07:44 ideation EXAM Constitutional Vitals: Temp Pulse Resp BP Pulse Ox 39.4 C H 95 H 18 96/64 93 02/13/21 08:10 02/13/21 10:34 02/13/21 10:34 02/13/21 09:16 02/13/21 10:34 General appearance: cooperative, mild distress and thin Head Head exam: Present atraumatic and normocephalic Eye Eye exam: Present EOMI and PERRL ENT ENT exam: Present mucous membranes moist, normal exam and normal external ear exam Additional comments: Oxygen mask in place Neck Neck exam: Present normal inspection; Absent lymphadenopathy, tenderness or thyromegaly Respiratory Respiratory exam: Present decreased breath sounds and wheezes; Absent accessory muscle use, respiratory distress or rhonchi Cardiovascular Cardiovascular exam: Present irregular rhythm; Absent JVD GI/Abdominal GI/Abdominal exam: Present normal bowel sounds and soft; Absent organomegaly or tenderness Rectal Rectal exam: Present deferred Extremities Exam Extremities exam: Present full ROM, normal capillary refill and normal inspection; Absent tenderness Neurological Exam Neurological exam: Present alert, CN II-XII intact and oriented X3; Absent motor sensory deficit Psychiatric Psychiatric exam: Present normal affect and normal mood; Absent anxious or depressed Skin Skin exam: Present dry and intact DATA Data Completed and Pending Labs: Labs from last 24 hours 02/13/21 02/13/21 02/13/21 08:45 07:56 07:56 WBC RBC Hgb Hct MCV MCH MCHC RDW Plt Count MPV Neut % (Auto) Lymph % (Auto) Hughes % (Auto) Eos % (Auto) Baso % (Auto) Lymph # (Auto) Hughes # (Auto) Eos # (Auto) Baso # (Auto) Absolute Neutrophils VBG Lactic Acid 1.7 Sodium 133 Potassium 4.4 Chloride 97 Carbon Dioxide 21 L Anion Gap 15.0 BUN 27 H Creatinine 0.9 GFR Calculation 87 Glucose 100 Calcium 9.0 Total Bilirubin 0.3 AST 19 ALT 15 Alkaline Phosphatase 70 Total Protein 6.9 Albumin 3.4 Globulin 3.5 Albumin/Globulin Ratio 1.0 Urine Color Yellow Urine Appearance Hazy A Urine pH 5.0 Ur Specific [place] 1.019 Urine Protein 30 A Urine Glucose (UA) 50 A Urine Ketones Negative Urine Occult Blood Negative Urine Nitrate Negative Urine Bilirubin Negative Urine Urobilinogen Negative Ur Leukocyte Esterase Negative Urine RBC 2 Urine WBC 2 Ur Squamous Epith Cells < 1 Ur Transition Epith Cell < 1 Urine Bacteria None Hyaline Casts 1 Granular Casts 1 H Urine Mucus Few A Ur Culture Indicated? No 02/13/21 07:56 WBC 25.1 H RBC 4.64 Hgb 14.9 Hct 44.8 MCV 96.6 MCH 32.1 MCHC 33.3 RDW 16.0 H Plt Count 371 MPV 10.3 Neut % (Auto) 88.1 H Lymph % (Auto) 5.5 L Hughes % (Auto) 6.1 Eos % (Auto) 0.1 Baso % (Auto) 0.2 Lymph # (Auto) 1.37 L Hughes # (Auto) 1.53 H Eos # (Auto) 0.03 Baso # (Auto) 0.05 Absolute Neutrophils 22.13 H VBG Lactic Acid Sodium Potassium Chloride Carbon Dioxide Anion Gap BUN Creatinine GFR Calculation Glucose Calcium Total Bilirubin AST ALT Alkaline Phosphatase Total Protein Albumin Globulin Albumin/Globulin Ratio Urine Color Urine Appearance Urine pH Ur Specific Jun[place] Urine Protein Urine Glucose (UA) Urine Ketones Urine Occult Blood Urine Nitrate Urine Bilirubin Urine Urobilinogen Ur Leukocyte Esterase Urine RBC Urine WBC Ur Squamous Epith Cells Ur Transition Epith Cell Urine Bacteria Hyaline Casts Granular Casts Urine Mucus Ur Culture Indicated? A/P Assessment and plan (1) COPD exacerbation: Status: Acute (2) Sleep apnea: Status: Chronic Qualifiers: Sleep apnea type: unspecified type Qualified Code(s): G47.30 - Sleep apnea, unspecified (3) T2DM (type 2 diabetes mellitus): Status: Acute (4) Community acquired pneumonia: Status: Acute (5) Sepsis: Status: Acute (6) Permanent atrial fibrillation: Status: Acute (7) Mixed dyslipidemia: Status: Acute Narrative A/P Narrative: Assessment and Plans: 1. Community acquired pneumonia with associated clinical sepsis: Admit to inpatient PCU telemetry [place] test pending Lactic acid Procalcitonin Blood culture Sputum culture cbc w/ auto diff in the morning to trend WBC level Supplemental oxygen therapy, titrate to achieve spo2>=88% given COPD-er, currently on 2L/min s/p 2L NS bolus given in the ED, to be followed by NS@100cc/hr Rocephin Zithromax Tylenol PRN fever Robitussin DM PRN cough DuoNEB scheduled and PRN wheezing 2. COPD exacerbation: Supplemental oxygen therapy, titrate to achieve spo2>=88% given COPD-er, currently on 2L/min DuoNEB scheduled and PRN wheezing Prednisone 3. LATASHA on CPAP: CPAP at night while sleeping 4. Permanent atrial fibrillation: Eliquis Diltiazem Lopressor IV PRN HR>120bpm, hold if SBP<90 and/or DBP<50mmHg Cardiac monitoring 5. T2DM: HgA1c 6.5 Low dose SSI AC HS Accu Chek AC HS Hypoglycemia protocol Diabetic diet 6. Mixed dyslipidemia: Continue statin therapy GI ppx: oral PPI DVT ppx: Eliquis Code status: Full Prognosis: guarded Disposition: inpatient PCU telemetry Time Spent With Patient Time: Total time spent is greater than 50% in coordination of care (as documented) at patient's floor/unit and/or counseling patient: Total time spent with greater than 50% in coordination of care (as documented) at patient's floor/unit and/or counseling patient:: Greater than 35 minutes
[2021-02-13] MEDS ORDERED: ONDANSETRON 4 MG/2 ML VIAL IV PRN (11:40)
[2021-02-13] MEDS ORDERED: DEXTROSE 31 GM ORAL.SUSP PO PRN (11:40)
[2021-02-13] MEDS ORDERED: ALBUTEROL SULFATE 2.5 MG/3 ML NEBULIZER NEB PRN (11:40)
[2021-02-13] MEDS ORDERED: oxyCODONE HCL 5 MG TABLET PO PRN (11:40)
[2021-02-13] MEDS ORDERED: cefTRIAXone 1 GM in DEXTROSE 5% IN WATER 50 ML IV SCH (11:40)
[2021-02-13] MEDS ORDERED: ACETAMINOPHEN 325 MG TABLET PO PRN (11:40)
[2021-02-13] MEDS ORDERED: LACTULOSE 20 GM/30 ML ORAL.SOL PO PRN (11:40)
[2021-02-13] MEDS ORDERED: morphine 4 MG/ML VIAL IV PRN (11:40)
[2021-02-13] MEDS ORDERED: SENNOSIDES 1 TABLET PO PRN (11:40)
[2021-02-13] MEDS ORDERED: DEXTROSE 50% 50 ML VIAL IV PRN (11:40)
[2021-02-13] MEDS ORDERED: METOPROLOL TARTRATE 5 MG/5 ML VIAL IV PRN (11:40)
[2021-02-13] MEDS: 0.9 % SODIUM CHLORIDE 1,000 ML IV SCH ×2 (11:46→21:18)
[2021-02-13] MEDS: predniSONE 20 MG TABLET PO SCH (11:47)
[2021-02-13] MEDS: INSULIN LISPRO 1 UNIT/0.01 ML UNIT SQ SCH ×3 (11:57→20:49)
[2021-02-13] MEDS: IPRATROPIUM/ALBUTEROL 3 ML AMPUL.NEB NEB SCH ×4 (12:13→22:50)
[2021-02-13] MEDS: 0.9 % SODIUM CHLORIDE 10 ML SYRINGE IV SCH ×2 (16:12→22:00)
[2021-02-13] MEDS: BUDESONIDE 0.5 MG/2 ML AMPUL.NEB NEB SCH (20:47)
[2021-02-13] MEDS: DOCUSATE SODIUM 100 MG CAPSULE PO SCH (20:47)
[2021-02-13] MEDS: TAMSULOSIN 0.4 MG CAPSULE PO SCH (20:47)
[2021-02-13] MEDS: APIXABAN 5 MG TABLET PO SCH (20:47)
[2021-02-13] MEDS: guaiFENesin/DEXTROMETHORPHAN ORAL SOL PO PRN (21:51)
[2021-02-14] MEDS: IPRATROPIUM/ALBUTEROL 3 ML AMPUL.NEB NEB SCH ×6 (03:13→23:15)
[2021-02-14] MEDS: 0.9 % SODIUM CHLORIDE 10 ML SYRINGE IV SCH ×3 (05:53→21:33)
[2021-02-14] MEDS: 0.9 % SODIUM CHLORIDE 1,000 ML IV SCH ×2 (06:25→17:21)
[2021-02-14 06:34] LABS: Basophils # (Auto) 0.03 K/mcL (0.00-0.30); Basophils % (Auto) 0.1 % (0.0-2.0); Eosinophils # (Auto) 0.01 K/mcL (0.00-0.70); Eosinophils % (Auto) 0 % (0.0-7.0); Hematocrit 35.4 % (40.1-51.0); Lymphocytes # (Auto) 1.37 K/mcL (1.50-4.80); Lymphocytes % (Auto) 5.8 % (15.5-49.0); Mean Cell Volume 96.5 fL (80.0-100.0); Mean Corpuscular HGB Conc 33.9 g/dL (31.0-36.0); Mean Platelet Volume 10.6 fL (7.4-10.4); Monocytes # (Auto) 1.83 K/mcL (0.10-0.90); Monocytes % (Auto) 7.7 % (1.0-12.0); Neutrophils % (Auto) 86.4 % (38.0-78.0); Platelet Count 281 K/mcL (140-440); RBC 3.67 M/mcL (4.63-6.08); Red Cell Distribution Width 16.3 % (11.5-14.5); WBC 23.7 K/mcL (4.5-11.0)
[2021-02-14 07:08] LABS: Phosphorous 2.5 mg/dL (2.5-4.5)
[2021-02-14] MEDS: BUDESONIDE 0.5 MG/2 ML AMPUL.NEB NEB SCH ×2 (07:11→19:45)
[2021-02-14] MEDS: INSULIN LISPRO 1 UNIT/0.01 ML UNIT SQ SCH ×4 (07:46→21:38)
[2021-02-14] MEDS ORDERED: CARBOXYMETHYLCELLULOSE SODIUM 1 EACH DROPER.GEL OU PRN (07:59)
--- NOTE | 2021-02-14 08:01 | Internal Med Progress Note ---
SUBJECTIVE Subjective Patient information: Note initiated : 02/14/21 at 7:58 am Service Date, if different from initiated Date: [] Patient: Celestine Beatty a 71 y/o M admitted on 02/13/21 for shortness of breath, racing heart, poss uti. Chief Complaint: [shortness of breath] Interval history: Mr. Beatty is a 71 year old M history of atrial fibrillation on Eliquis, COPD with asthma on home oxygen as needed, mixed dyslipidemia, obstructive sleep apnea on CPAP, presenting with 2-day history of shortness of breath with cough with phlegm production with chest pain with wheezing with fever, chills, and diaphoresis. He is vaccinated against Covid pneumonia. Over the past 2 days, he is complaining of shortness of breath, productive cough with green phlegm productions, chest pain especially when he coughs, respiratory wheezings, fever with T-max 101, chills, and diaphoresis. He is also committing of inability to urinate for 1 week. He uses oxygen on a as needed basis. He uses CPAP at night for sleep for sleep apnea. Due to the worsening nature of his symptoms, he decided to come to our ED for further evaluations. Vital signs upon ED presentation significant for tachycardia and tachypnea with heart rate up to the 140s and rate of breathing in the mid 30s, respectively. Fever of T-max 39.4. He was also started on 5 L of oxygen's. Labs significant for leukocytosis with WBC 25.1. Lactic acid 1.7. Urine analysis does not suggest the presence of any UTI. Kelley negative. Chest x-ray showing nonspecific inflammatory changes in both lungs superimposed upon underlying moderate emphysema. 02/14: Afebrile overnight. Was on CPAP overnight, currently on 3L/min oxygen. Sagle negative. Blood cultures no growth to date. Sputum culture: gram positive cocci. Improving degree of shortness of breath. c/o productive cough with clear sputum. c/o respiratory wheezing. Denies chest pain. Denies fever, chills, or sweating. Constitutional Vitals: Vital Signs Temp Pulse Resp BP Pulse Ox 36.2 C 84 16 124/77 94 02/14/21 04:01 02/14/21 06:45 02/14/21 06:45 02/14/21 06:01 02/14/21 06:45 Period Temp Pulse Resp BP Sys/Mccl[place]on Pulse Ox Last 24 Hr 36.1 C-39.4 C 80-135 16-30 84-126/64-99 91-99 Intake and Output 02/13/21 02/14/21 02/14/21 21:59 05:59 13:59 Intake Total 1193 910 Output Total 975 200 Balance 218 710 Weight 68.81 kg Intake & Output: Intake & Output 02/13/21 02/14/21 02/14/21 21:59 05:59 13:59 Intake Total 1193 910 Output Total 975 200 Balance 218 710 Weight 68.81 kg Intake: IV 953 910 Sodium Chloride 0.9% 1,000 ml @ 953 910 100 mls/hr IV .Q10H [facility] Rx#: [id number] Oral 240 Output: Void Amount 975 200 Other: Meal Lunch Percent of Meal Consumed 100% Feeding Ability Independent Urine Appearance Clear Clear Clear Urine Color Pale Dark Yellow Straw Urine Odor Normal General appearance: average body habitus, cooperative and no acute distress Head Head exam: Present atraumatic and normal inspection Eye Eye exam: Present normal appearance ENT ENT exam: Present mucous membranes moist, normal exam and normal external ear exam Additional comments: Nasal cannula in place Neck Neck exam: Present normal inspection Respiratory Respiratory exam: Present rhonchi and wheezes Cardiovascular Cardiovascular exam: Present irregular rhythm and tachycardia GI/Abdominal GI/Abdominal exam: Present normal bowel sounds Back Exam Back exam: Present normal inspection Neurological Exam Neurological exam: Present alert and oriented X3 Skin Skin exam: Present intact and warm OBJ DATA Labs CBC & Chem 7: 02/14/21 05:42 02/13/21 07:56 Labs: Abnormal Lab Results 02/14/21 02/13/21 02/13/21 05:42 08:45 07:56 WBC 23.7 H RBC 3.67 L Hgb 12.0 L Hct 35.4 L RDW 16.3 H MPV 10.6 H Neut % (Auto) 86.4 H Lymph % (Auto) 5.8 L Lymph # (Auto) 1.37 L Wheeler # (Auto) 1.83 H Absolute Neutrophils 20.45 H Carbon Dioxide BUN Procalcitonin 0.60 H Urine Appearance Hazy A Urine Protein 30 A Urine Glucose (UA) 50 A Granular Casts 1 H Urine Mucus Few A 02/13/21 02/13/21 07:56 07:56 WBC 25.1 H RBC Hgb Hct RDW 16.0 H MPV Neut % (Auto) 88.1 H Lymph % (Auto) 5.5 L Lymph # (Auto) 1.37 L Wheeler # (Auto) 1.53 H Absolute Neutrophils 22.13 H Carbon Dioxide 21 L BUN 27 H Procalcitonin Urine Appearance Urine Protein Urine Glucose (UA) Granular Casts Urine Mucus Meds: Medications Acetaminophen (Acetaminophen 500 Mg Tablet) 500 mg PO HSP PRN PRN Reason: Insomnia Acetaminophen (Acetaminophen 325 Mg Tablet) 650 mg PO Q6HP PRN; Protocol PRN Reason: Per Pain Protocol/Fever > 101 Albuterol Sulfate (Albuterol Sulfate 2.5 Mg/3 Ml Nebulizer) 2.5 mg NEB Q2HP PRN PRN Reason: Wheezing Albuterol/Ipratropium (Ipratropium/Albuterol 3 Ml Ampul.Neb) 3 ml NEB Q4HRT [facility] Last Admin: 02/14/21 07:11 Dose: 3 ml Documented by: Apixaban (Apixaban 5 Mg Tablet) 5 mg PO BID [facility] Last Admin: 02/13/21 20:47 Dose: 5 mg Documented by: Budesonide (Budesonide 0.5 Mg/2 Ml Ampul.Neb) 0.5 mg NEB BID [facility] Last Admin: 02/14/21 07:11 Dose: 0.5 mg Documented by: Ceftriaxone Sodium (Ceftriaxone 1 Gm Vial) 1 gm IV DAILY [facility] Dextrose (Dextrose 50% 50 Ml Vial) 0 ml IV UD PRN PRN Reason: Hypoglycemia Diagnostic Test (Pha) (Accu-Chek 1 Each Strip) 1 each FS ACHS [facility] Last Admin: 02/14/21 07:39 Dose: 1 each Documented by: Diltiazem HCl (Diltiazem 180 Mg Cap.Xl.24h) 180 mg PO QDAY [facility] Diphenhydramine HCl (Diphenhydramine 25 Mg Capsule) 25 mg PO HSP PRN PRN Reason: Insomnia Docusate Sodium (Docusate Sodium 100 Mg Capsule) 100 mg PO BID [facility] Last Admin: 02/13/21 20:47 Dose: 100 mg Documented by: Fluconazole (Fluconazole 100 Mg Tablet) 400 mg PO DAILY [facility] Gabapentin (Gabapentin 300 Mg Capsule) 300 mg PO QDAY [facility] Glucose (Dextrose 31 Gm Oral.Susp) 15 gm PO PRN PRN PRN Reason: Hypoglycemia Guaifenesin (Guaifenesin/Dextromethorphan Oral Kadie) 10 ml PO Q4HP PRN PRN Reason: Cough Last Admin: 02/13/21 21:51 Dose: 10 ml Documented by: Sodium Chloride (Sodium Chloride 0.9%) 1,000 mls @ 100 mls/hr IV .Q10H [facility] Last Admin: 02/14/21 06:25 Dose: 100 mls/hr Documented by: Azithromycin 500 mg/ Dextrose 250 mls @ 250 mls/hr IV DAILY [facility]; Protocol Stop: 02/15/21 09:59 Insulin Human Lispro (Insulin Lispro 1 Unit/0.01 Ml Unit) 0 unit SQ ACHS [facility]; Protocol Last Admin: 02/14/21 07:46 Dose: Not Given Documented by: Lactulose (Lactulose 20 Gm/30 Ml Oral.Kadie) 10 gm PO DAILYP PRN PRN Reason: Constipation Metoprolol Tartrate (Metoprolol Tartrate 5 Mg/5 Ml Vial) 5 mg IV Q5M PRN PRN Reason: Tachyarrhythmias Morphine Sulfate (Morphine 4 Mg/Ml Vial) 4 mg IV Q4HP PRN; Protocol PRN Reason: Per Pain Protocol Non-Formulary Medication (Carboxymethylcellulose Sodium) 1 drp OPHTHALMIC BID PRN PRN Reason: Dry Eyes Ondansetron HCl (Ondansetron 4 Mg/2 Ml Vial) 4 mg IV Q4HP PRN; Protocol PRN Reason: Nausea And Vomiting Oxycodone HCl (Oxycodone Hcl 5 Mg Tablet) 5 mg PO Q4-6HP PRN; Protocol PRN Reason: Per Pain Protocol Last Admin: 02/13/21 20:36 Dose: 5 mg Documented by: Pantoprazole Sodium (Pantoprazole 40 Mg Tablet) [facility] Prednisone (Prednisone 20 Mg Tablet) [facility] Last Admin: 02/13/21 11:47 Dose: 40 mg Documented by: Senna (Sennosides 1 Tablet) 2 tab PO HSP PRN PRN Reason: Constipation Simvastatin (Simvastatin 10 Mg Tablet) 5 mg PO QDAY [facility] Sodium Chloride (0.9 % Sodium Chloride 10 Ml Syringe) 10 ml IV Q8 [facility] Last Admin: 02/14/21 05:53 Dose: Not Given Documented by: Tamsulosin HCl (Tamsulosin 0.4 Mg Capsule) 0.4 mg PO HS [facility] Last Admin: 02/13/21 20:47 Dose: 0.4 mg Documented by: A/P Assessment and plan (1) COPD exacerbation: Status: Acute (2) Sleep apnea: Status: Chronic Qualifiers: Sleep apnea type: unspecified type Qualified Code(s): G47.30 - Sleep apnea, unspecified (3) T2DM (type 2 diabetes mellitus): Status: Acute (4) Community acquired pneumonia: Status: Acute (5) Sepsis: Status: Acute (6) Permanent atrial fibrillation: Status: Acute (7) Mixed dyslipidemia: Status: Acute Narrative A/P Narrative: Assessment and Plans: 1. Community acquired pneumonia with associated clinical sepsis: Transfer to inpatient med surg [place] test negative Lactic acid 1.7 Procalcitonin 0.60 elevated Blood culture, no growth to date Sputum culture, gram positive cocci cbc w/ auto diff in the morning to trend WBC level Supplemental oxygen therapy, titrate to achieve spo2>=88% given COPD-er, currently on 3L/min s/p 2L NS bolus given in the ED, to be followed by NS@100cc/hr Rocephin Zithromax Tylenol PRN fever Robitussin DM PRN cough DuoNEB scheduled and PRN wheezing 2. COPD exacerbation: Supplemental oxygen therapy, titrate to achieve spo2>=88% given COPD-er, currently on 3L/min DuoNEB scheduled and PRN wheezing Prednisone 3. LATASHA on CPAP: CPAP at night while sleeping 4. Permanent atrial fibrillation: Eliquis Diltiazem Lopressor IV PRN HR>120bpm, hold if SBP<90 and/or DBP<50mmHg Cardiac monitoring 5. T2DM: HgA1c 6.5 Low dose SSI AC HS Accu Chek AC HS Hypoglycemia protocol Diabetic diet 6. Mixed dyslipidemia: Continue statin therapy GI ppx: oral PPI DVT ppx: Eliquis Code status: Full Prognosis: guarded Disposition: inpatient med surg Time Spent With Patient Time: Total time spent is greater than 50% in coordination of care (as documented) at patient's floor/unit and/or counseling patient: Total time spent with greater than 50% in coordination of care (as documented) at patient's floor/unit and/or counseling patient:: Greater than 35 minutes QUALITY VTE Deep Vein Thrombosis/Pulmonary Embolism Present on Admission: No
[2021-02-14] MEDS: cefTRIAXone 1 GM VIAL IV SCH (08:26)
[2021-02-14] MEDS: GABAPENTIN 300 MG CAPSULE PO SCH (08:26)
[2021-02-14] MEDS: guaiFENesin/DEXTROMETHORPHAN ORAL SOL PO PRN (08:26)
[2021-02-14] MEDS: DOCUSATE SODIUM 100 MG CAPSULE PO SCH ×2 (08:26→21:27)
[2021-02-14] MEDS: predniSONE 20 MG TABLET PO SCH (08:27)
[2021-02-14] MEDS: DILTIAZEM 180 MG CAP.XL.24H PO SCH (08:27)
[2021-02-14] MEDS: FLUCONAZOLE 100 MG TABLET PO SCH (08:27)
[2021-02-14] MEDS: APIXABAN 5 MG TABLET PO SCH ×2 (08:27→21:27)
[2021-02-14] MEDS: PANTOPRAZOLE 40 MG TABLET PO SCH (08:36)
[2021-02-14 08:48] LABS: ALT/SGPT 29 U/L (<40); AST/SGOT 40 U/L (<40); Albumin 3.1 gm/dL (3.2-5.2); Albumin/Globulin Ratio 0.8 (1.0-2.3); Alkaline Phosphatase 150 U/L (39-117); Bilirubin,Total 0.8 mg/dL (0.1-1.0); Blood Urea Nitrogen 30 mg/dL (8-23); Calcium 9.7 mg/dL (8.6-10.4); Carbon Dioxide 25 mmol/L (22-30); Chloride 90 mmol/L (96-108); Globulin 3.7 gm/dL (2.2-3.7); Glomerular Filtration Rate 91; Glucose 117 mg/dL (70-105)
[2021-02-14] MEDS ORDERED: SIMVASTATIN 10 MG TABLET PO SCH (09:00)
[2021-02-14] MEDS: AZITHROMYCIN 500 MG in DEXTROSE 5% IN WATER 250 ML IV SCH (09:14)
[2021-02-14] MEDS ORDERED: HALOPERIDOL LACTATE 5 MG/ML VIAL IM ONE (09:25)
[2021-02-14] MEDS ORDERED: POTASSIUM CHLORIDE 20 MEQ TABLET PO PRN (10:27)
[2021-02-14] MEDS ORDERED: IPRATROPIUM 0.03% NASAL SPRAY BOTTLE 30ML NAS PRN (11:55)
[2021-02-14] MEDS ORDERED: SODIUM CHLORIDE NASAL 1 SPRAY BOTTLE NAS PRN (11:59)
--- NOTE | 2021-02-14 16:34 | EKG ---
[facility] Test Date: 2021-02-13 Pat Name: Celestine Beatty Department: ED Room: Gender: Male Community Development Worker: : 1950 Requested By: Dwayne Thakkar Order Number: [id number] Reading MD: Romain Garcia M.D. Measurements Intervals [place] Rate: 133 P: 106 [place]: 93 QRS: -83 QRSD: 115 T: 256 QT: 360 QTc: 536 Interpretive Statements Sinus tachycardia Paired ventricular premature complexes Aberrant conduction of SV complex(es) LEFT ANTERIOR FASCICULAR BLOCK INCOMPLETE RIGHT BUNDLE BRANCH BLOCK SHORT [place] INTERVAL, ACCELERATED AV CONDUCTION Electronically Signed On 02-14-2021 16:33:56 PST by Romain Garcia M.D. /[facility] [place]/[id number]
[2021-02-14] MEDS: TAMSULOSIN 0.4 MG CAPSULE PO SCH (21:27)
[2021-02-14] MEDS: SIMVASTATIN 10 MG TABLET PO SCH (21:28)
[2021-02-15] MEDS: guaiFENesin/DEXTROMETHORPHAN ORAL SOL PO PRN (00:17)
[2021-02-15] MEDS: diphenhydrAMINE 25 MG CAPSULE PO PRN ×2 (00:17→23:05)
[2021-02-15] MEDS: 0.9 % SODIUM CHLORIDE 1,000 ML IV SCH (02:28)
[2021-02-15] MEDS: IPRATROPIUM/ALBUTEROL 3 ML AMPUL.NEB NEB SCH ×6 (03:37→22:51)
[2021-02-15] MEDS: BUDESONIDE 0.5 MG/2 ML AMPUL.NEB NEB SCH ×3 (06:53→18:50)
[2021-02-15] MEDS: 0.9 % SODIUM CHLORIDE 10 ML SYRINGE IV SCH ×3 (07:12→20:50)
[2021-02-15] MEDS: ACETAMINOPHEN 500 MG TABLET PO PRN (07:17)
[2021-02-15] MEDS: PANTOPRAZOLE 40 MG TABLET PO SCH (07:17)
[2021-02-15 07:30] LABS: Basophils # (Auto) 0.01 K/mcL (0.00-0.30); Basophils % (Auto) 0.1 % (0.0-2.0); Eosinophils # (Auto) 0.07 K/mcL (0.00-0.70); Eosinophils % (Auto) 0.4 % (0.0-7.0); Hematocrit 33.7 % (40.1-51.0); Hemoglobin 11.4 g/dL (13.7-17.5); Lymphocytes # (Auto) 1.86 K/mcL (1.50-4.80); Lymphocytes % (Auto) 11.3 % (15.5-49.0); Mean Cell Volume 94.4 fL (80.0-100.0); Mean Corpuscular HGB Conc 33.8 g/dL (31.0-36.0); Mean Platelet Volume 10.5 fL (7.4-10.4); Monocytes # (Auto) 1.36 K/mcL (0.10-0.90); Monocytes % (Auto) 8.2 % (1.0-12.0); Platelet Count 300 K/mcL (140-440); RBC 3.57 M/mcL (4.63-6.08); WBC 16.5 K/mcL (4.5-11.0)
[2021-02-15 08:10] LABS: Phosphorous 2.1 mg/dL (2.5-4.5)
[2021-02-15 08:13] LABS: ALT/SGPT 18 U/L (<40); AST/SGOT 18 U/L (<40); Albumin 2.6 gm/dL (3.2-5.2); Albumin/Globulin Ratio 0.9 (1.0-2.3); Alkaline Phosphatase 57 U/L (39-117); Bilirubin,Total 0.2 mg/dL (0.1-1.0); Blood Urea Nitrogen 13 mg/dL (8-23); Calcium 8.3 mg/dL (8.6-10.4); Carbon Dioxide 23 mmol/L (22-30); Chloride 102 mmol/L (96-108); Globulin 2.9 gm/dL (2.2-3.7); Glomerular Filtration Rate 103; Glucose 94 mg/dL (70-105)
[2021-02-15] MEDS: INSULIN LISPRO 1 UNIT/0.01 ML UNIT SQ SCH ×4 (08:31→21:02)
[2021-02-15] MEDS: DOCUSATE SODIUM 100 MG CAPSULE PO SCH ×2 (08:52→20:47)
[2021-02-15] MEDS: AZITHROMYCIN 500 MG in DEXTROSE 5% IN WATER 250 ML IV SCH (08:52)
[2021-02-15] MEDS: APIXABAN 5 MG TABLET PO SCH ×2 (08:52→20:47)
[2021-02-15] MEDS: cefTRIAXone 1 GM VIAL IV SCH (08:52)
[2021-02-15] MEDS: predniSONE 20 MG TABLET PO SCH (08:53)
[2021-02-15] MEDS: DILTIAZEM 180 MG CAP.XL.24H PO SCH (08:53)
[2021-02-15] MEDS: FLUCONAZOLE 100 MG TABLET PO SCH (08:53)
[2021-02-15] MEDS: GABAPENTIN 300 MG CAPSULE PO SCH (08:53)
--- NOTE | 2021-02-15 12:00 | Internal Med Progress Note ---
SUBJECTIVE Subjective Patient information: Note initiated : 02/15/21 at 11:54 am Service Date, if different from initiated Date: [] Patient: Celestine Beatty a 71 y/o M admitted on 02/13/21 for shortness of breath, racing heart, poss uti. Chief Complaint: [] Interval history: Mr. Beatty is a 71 year old M history of atrial fibrillation on Eliquis, COPD with asthma on home oxygen as needed, mixed dyslipidemia, obstructive sleep apnea on CPAP, presenting with 2-day history of shortness of breath with cough with phlegm production with chest pain with wheezing with fever, chills, and diaphoresis. He is vaccinated against Covid pneumonia. Over the past 2 days, he is complaining of shortness of breath, productive cough with green phlegm pro ductions, chest pain especially when he coughs, respiratory wheezings, fever with T-max 101, chills, and diaphoresis. He is also committing of inability to urinate for 1 week. He uses oxygen on a as needed basis. He uses CPAP at night for sleep for sleep apnea. Due to the worsening nature of his symptoms, he decided to come to our ED for further evaluations. Vital signs upon ED presentation significant for tachycardia and tachypnea with heart rate up to the 140s and rate of breathing in the mid 30s, respectively. Fever of T-max 39.4. He was also started on 5 L of oxygen's. Labs significant for leukocytosis with WBC 25.1. Lactic acid 1.7. Urine analysis does not suggest the presence of any UTI. Kelley negative. Chest x-ray showing nonspecific inflammatory changes in both lungs superimposed upon underlying moderate emphysema. 02/14: Afebrile overnight. Was on CPAP overnight, currently on 3L/min oxygen. Brea negative. Blood cultures no growth to date. Sputum culture: gram positive cocci. Improving degree of shortness of breath. c/o productive cough with clear sputum. c/o respiratory wheezing. Denies chest pain. Denies fever, chills, or sweating. 02/15: Afebrile overnight. Was on CPAP overnight, currently on 3L/min oxygen. Blood cultures no growth to date. Sputum culture: presumptive strep pneumoniae. Improving degree of shortness of breath. c/o productive cough with clear sputum. c/o respiratory wheezing. c/o nasal congestion. Denies chest pain. Denies fever, chills, or sweating. Constitutional Vitals: Vital Signs Temp Pulse Resp BP Pulse Ox 37.0 C 86 34 H 170/96 93 02/15/21 08:00 02/15/21 11:32 02/15/21 11:32 02/15/21 08:00 02/15/21 11:32 Period Temp Pulse Resp BP Sys/Mccl[place]on Pulse Ox Last 24 Hr 36.3 C-37.0 C 82-104 22-34 116-170/73-96 90-95 Intake and Output 02/14/21 02/15/21 02/15/21 21:59 05:59 13:59 Intake Total 1800 1062 Output Total 450 725 Balance 1350 337 Weight 66.043 kg Intake & Output: Intake & Output 02/14/21 02/15/21 02/15/21 21:59 05:59 13:59 Intake Total 1800 1062 Output Total 450 725 Balance 1350 337 Weight 66.043 kg Intake: IV 1000 912 Sodium Chloride 0.9% 1,000 ml @ 1000 912 100 mls/hr IV .Q10H [facility] Rx#: [id number] Oral 800 150 Output: Void Amount 450 725 Other: Urine Appearance Clear Clear Urine Color Straw Bright Yellow General appearance: average body habitus, cooperative and no acute distress Head Head exam: Present atraumatic and normal inspection Eye Eye exam: Present normal appearance ENT ENT exam: Present mucous membranes moist, normal exam and normal external ear exam Additional comments: Nasal cannula in place Neck Neck exam: Present normal inspection Respiratory Respiratory exam: Present wheezes Additional comments: Expiratory wheezing with prolonged expiratory phase in all lung [place] Cardiovascular Cardiovascular exam: Present irregular rhythm GI/Abdominal GI/Abdominal exam: Present normal bowel sounds Back Exam Back exam: Present normal inspection Neurological Exam Neurological exam: Present alert and oriented X3 Skin Skin exam: Present intact and warm OBJ DATA Labs CBC & Chem 7: 02/15/21 05:56 02/15/21 05:56 Labs: Abnormal Lab Results 02/15/21 02/15/21 02/15/21 05:56 05:56 05:56 WBC 16.5 H RBC 3.57 L Hgb 11.4 L Hct 33.7 L RDW 16.0 H MPV 10.5 H Neut % (Auto) 80.0 H Lymph % (Auto) 11.3 L Lymph # (Auto) [place] # (Auto) 1.36 H Absolute Neutrophils 13.23 H Sodium Chloride Carbon Dioxide Anion Gap BUN Creatinine 0.6 L Glucose Calcium 8.3 L Phosphorus 2.1 L AST Alkaline Phosphatase Total Protein 5.5 L Albumin 2.6 L Albumin/Globulin Ratio 0.9 L Procalcitonin Urine Appearance Urine Protein Urine Glucose (UA) Granular Casts Urine Mucus 02/14/21 02/14/21 02/13/21 05:42 05:42 08:45 WBC 23.7 H RBC 3.67 L Hgb 12.0 L Hct 35.4 L RDW 16.3 H MPV 10.6 H Neut % (Auto) 86.4 H Lymph % (Auto) 5.8 L Lymph # (Auto) 1.37 L [place] # (Auto) 1.83 H Absolute Neutrophils 20.45 H Sodium 132 L Chloride 90 L Carbon Dioxide Anion Gap 17.0 H BUN 30 H Creatinine Glucose 117 H Calcium Phosphorus AST 40 H Alkaline Phosphatase 150 H Total Protein Albumin 3.1 L Albumin/Globulin Ratio 0.8 L Procalcitonin Urine Appearance Hazy A Urine Protein 30 A Urine Glucose (UA) 50 A Granular Casts 1 H Urine Mucus Few A 02/13/21 02/13/21 02/13/21 07:56 07:56 07:56 WBC 25.1 H RBC Hgb Hct RDW 16.0 H MPV Neut % (Auto) 88.1 H Lymph % (Auto) 5.5 L Lymph # (Auto) 1.37 L [place] # (Auto) 1.53 H Absolute Neutrophils 22.13 H Sodium Chloride Carbon Dioxide 21 L Anion Gap BUN 27 H Creatinine Glucose Calcium Phosphorus AST Alkaline Phosphatase Total Protein Albumin Albumin/Globulin Ratio Procalcitonin 0.60 H Urine Appearance Urine Protein Urine Glucose (UA) Granular Casts Urine Mucus Meds: Medications Acetaminophen (Acetaminophen 500 Mg Tablet) 500 mg PO HSP PRN PRN Reason: Insomnia Last Admin: 02/15/21 07:17 Dose: 500 mg Documented by: Acetaminophen (Acetaminophen 325 Mg Tablet) 650 mg PO Q6HP PRN; Protocol PRN Reason: Per Pain Protocol/Fever > 101 Albuterol Sulfate (Albuterol Sulfate 2.5 Mg/3 Ml Nebulizer) 2.5 mg NEB Q2HP PRN PRN Reason: Wheezing Albuterol/Ipratropium (Ipratropium/Albuterol 3 Ml Ampul.Neb) 3 ml NEB Q4HRT [facility] Last Admin: 02/15/21 11:32 Dose: 3 ml Documented by: Apixaban (Apixaban 5 Mg Tablet) 5 mg PO BID [facility] Last Admin: 02/15/21 08:52 Dose: 5 mg Documented by: Artificial Tears (Carboxymethylcellulose Sodium 1 Each Droper.Gel) 1 each OU BIDP PRN PRN Reason: Dry Eyes Budesonide (Budesonide 0.5 Mg/2 Ml Ampul.Neb) 0.5 mg NEB BID [facility] Last Admin: 02/15/21 10:33 Dose: Not Given Documented by: Ceftriaxone Sodium (Ceftriaxone 1 Gm Vial) 1 gm IV DAILY [facility] Last Admin: 02/15/21 08:52 Dose: 1 gm Documented by: Dextrose (Dextrose 50% 50 Ml Vial) 0 ml IV UD PRN PRN Reason: Hypoglycemia Diagnostic Test (Pha) (Accu-Chek 1 Each Strip) 1 each FS ACHS [facility] Last Admin: 02/15/21 07:12 Dose: 1 each Documented by: Diltiazem HCl (Diltiazem 180 Mg Cap.Xl.24h) 180 mg PO QDAY [facility] Last Admin: 02/15/21 08:53 Dose: 180 mg Documented by: Diphenhydramine HCl (Diphenhydramine 25 Mg Capsule) 25 mg PO HSP PRN PRN Reason: Insomnia Last Admin: 02/15/21 00:17 Dose: 25 mg Documented by: Docusate Sodium (Docusate Sodium 100 Mg Capsule) 100 mg PO BID [facility] Last Admin: 02/15/21 08:52 Dose: 100 mg Documented by: Fluconazole (Fluconazole 100 Mg Tablet) 400 mg PO DAILY [facility] Last Admin: 02/15/21 08:53 Dose: 400 mg Documented by: Gabapentin (Gabapentin 300 Mg Capsule) 300 mg PO QDAY [facility] Last Admin: 02/15/21 08:53 Dose: 300 mg Documented by: Glucose (Dextrose 31 Gm Oral.Susp) 15 gm PO PRN PRN PRN Reason: Hypoglycemia Guaifenesin (Guaifenesin/Dextromethorphan Oral Kadie) 10 ml PO Q4HP PRN PRN Reason: Cough Last Admin: 02/15/21 00:17 Dose: 10 ml Documented by: Insulin Human Lispro (Insulin Lispro 1 Unit/0.01 Ml Unit) 0 unit SQ [facility]; Protocol Last Admin: 02/15/21 08:31 Dose: Not Given Documented by: Lactulose (Lactulose 20 Gm/30 Ml Oral.Kadie) 10 gm PO DAILYP PRN PRN Reason: Constipation Metoprolol Tartrate (Metoprolol Tartrate 5 Mg/5 Ml Vial) 5 mg IV Q5M PRN PRN Reason: Tachyarrhythmias Morphine Sulfate (Morphine 4 Mg/Ml Vial) 4 mg IV Q4HP PRN; Protocol PRN Reason: Per Pain Protocol Ondansetron HCl (Ondansetron 4 Mg/2 Ml Vial) 4 mg IV Q4HP PRN; Protocol PRN Reason: Nausea And Vomiting Oxycodone HCl (Oxycodone Hcl 5 Mg Tablet) 5 mg PO Q4-6HP PRN; Protocol PRN Reason: Per Pain Protocol Last Admin: 02/13/21 20:36 Dose: 5 mg Documented by: Pantoprazole Sodium (Pantoprazole 40 Mg Tablet) 40 mg PO [facility] Last Admin: 02/15/21 07:17 Dose: 40 mg Documented by: Potassium Chloride (Potassium Chloride 20 Meq Tablet) 20 meq PO DAILYP PRN PRN Reason: hypokalemia Last Admin: 02/14/21 12:48 Dose: 20 meq Documented by: Prednisone (Prednisone 20 Mg Tablet) [address] [facility] Last Admin: 02/15/21 08:53 Dose: 40 mg Documented by: Senna (Sennosides 1 Tablet) 2 tab PO HSP PRN PRN Reason: Constipation Simvastatin (Simvastatin 10 Mg Tablet) 5 mg PO [facility] Last Admin: 02/14/21 21:28 Dose: 5 mg Documented by: Sodium Chloride (0.9 % Sodium Chloride 10 Ml Syringe) 10 ml IV Q8 [facility] Last Admin: 02/15/21 07:12 Dose: 10 ml Documented by: Sodium Chloride (Sodium Chloride Nasal 1 [place] Bottle) 1 spray JADEN TIDP PRN PRN Reason: Congestion Last Admin: 02/14/21 13:53 Dose: 1 spray Documented by: Tamsulosin HCl (Tamsulosin 0.4 Mg Capsule) 0.4 mg PO [facility] Last Admin: 02/14/21 21:27 Dose: 0.4 mg Documented by: A/P Assessment and plan (1) COPD exacerbation: Status: Acute (2) Sleep apnea: Status: Chronic Qualifiers: Sleep apnea type: unspecified type Qualified Code(s): G47.30 - Sleep apnea, unspecified (3) T2DM (type 2 diabetes mellitus): Status: Acute (4) Community acquired pneumonia: Status: Acute (5) Sepsis: Status: Acute (6) Permanent atrial fibrillation: Status: Acute (7) Mixed dyslipidemia: Status: Acute Narrative A/P Narrative: Assessment and Plans: 1. Community acquired pneumonia with associated clinical sepsis: Stays in inpatient med surg Brea test negative Lactic acid 1.7 Procalcitonin 0.60 elevated Blood culture, no growth to date Sputum culture, strep pneumoniae cbc w/ auto diff in the morning to trend WBC level Supplemental oxygen therapy, titrate to achieve spo2>=88% given COPD-er, currently on 3L/min Saline lock Rocephin Zithromax Tylenol PRN fever Robitussin DM PRN cough DuoNEB scheduled and PRN wheezing 2. COPD exacerbation: Supplemental oxygen therapy, titrate to achieve spo2>=88% given COPD-er, currently on 3L/min DuoNEB scheduled and PRN wheezing Prednisone 3. LATASHA on CPAP: CPAP at night while sleeping 4. Permanent atrial fibrillation: Eliquis Diltiazem Lopressor IV PRN HR>120bpm, hold if SBP<90 and/or DBP<50mmHg Cardiac monitoring 5. T2DM: HgA1c 6.5 Low dose SSI AC HS Accu Chek AC HS Hypoglycemia protocol Diabetic diet 6. Mixed dyslipidemia: Continue statin therapy GI ppx: oral PPI DVT ppx: Eliquis Code status: Full Prognosis: stable Disposition: inpatient med surg Time Spent With Patient Time: Total time spent is greater than 50% in coordination of care (as documented) at patient's floor/unit and/or counseling patient: Total time spent with greater than 50% in coordination of care (as documented) at patient's floor/unit and/or counseling patient:: Greater than 35 minutes QUALITY VTE Deep Vein Thrombosis/Pulmonary Embolism Present on Admission: No
[2021-02-15] MEDS: TAMSULOSIN 0.4 MG CAPSULE PO SCH (20:47)
[2021-02-15] MEDS: SIMVASTATIN 10 MG TABLET PO SCH (20:47)
[2021-02-16] MEDS: IPRATROPIUM/ALBUTEROL 3 ML AMPUL.NEB NEB SCH ×3 (03:59→10:04)
[2021-02-16 06:46] LABS: Basophils # (Auto) 0.02 K/mcL (0.00-0.30); Basophils % (Auto) 0.2 % (0.0-2.0); Eosinophils # (Auto) 0.09 K/mcL (0.00-0.70); Eosinophils % (Auto) 0.7 % (0.0-7.0); Hematocrit 35.9 % (40.1-51.0); Hemoglobin 11.8 g/dL (13.7-17.5); Lymphocytes # (Auto) 1.83 K/mcL (1.50-4.80); Lymphocytes % (Auto) 14.1 % (15.5-49.0); Mean Cell Volume 95.5 fL (80.0-100.0); Mean Corpuscular HGB Conc 32.9 g/dL (31.0-36.0); Mean Platelet Volume 10.4 fL (7.4-10.4); Monocytes # (Auto) 1.36 K/mcL (0.10-0.90); Monocytes % (Auto) 10.5 % (1.0-12.0); Neutrophils % (Auto) 74.5 % (38.0-78.0); Platelet Count 324 K/mcL (140-440); RBC 3.76 M/mcL (4.63-6.08)
[2021-02-16] MEDS: BUDESONIDE 0.5 MG/2 ML AMPUL.NEB NEB SCH ×2 (06:51→09:15)
[2021-02-16 07:12] LABS: Phosphorous 2.6 mg/dL (2.5-4.5)
[2021-02-16 07:14] LABS: ALT/SGPT 40 U/L (<40); AST/SGOT 29 U/L (<40); Albumin 2.6 gm/dL (3.2-5.2); Albumin/Globulin Ratio 0.8 (1.0-2.3); Alkaline Phosphatase 82 U/L (39-117); Bilirubin,Total 0.3 mg/dL (0.1-1.0); Blood Urea Nitrogen 18 mg/dL (8-23); Calcium 8.5 mg/dL (8.6-10.4); Carbon Dioxide 24 mmol/L (22-30); Chloride 100 mmol/L (96-108); Globulin 3.4 gm/dL (2.2-3.7); Glomerular Filtration Rate 111; Glucose 84 mg/dL (70-105)
[2021-02-16] MEDS: ACETAMINOPHEN 500 MG TABLET PO PRN (08:08)
[2021-02-16] MEDS: 0.9 % SODIUM CHLORIDE 10 ML SYRINGE IV SCH (08:08)
[2021-02-16] MEDS: PANTOPRAZOLE 40 MG TABLET PO SCH (08:09)
[2021-02-16] MEDS: DOCUSATE SODIUM 100 MG CAPSULE PO SCH (08:09)
[2021-02-16] MEDS: GABAPENTIN 300 MG CAPSULE PO SCH (08:09)
[2021-02-16] MEDS: predniSONE 20 MG TABLET PO SCH (08:09)
[2021-02-16] MEDS: APIXABAN 5 MG TABLET PO SCH (08:09)
[2021-02-16] MEDS: DILTIAZEM 180 MG CAP.XL.24H PO SCH (08:09)
[2021-02-16] MEDS: FLUCONAZOLE 100 MG TABLET PO SCH (08:09)
[2021-02-16] MEDS: cefTRIAXone 1 GM VIAL IV SCH (08:10)
[2021-02-16] MEDS: INSULIN LISPRO 1 UNIT/0.01 ML UNIT SQ SCH ×2 (09:15→11:50)
--- NOTE | 2021-02-16 11:16 | Discharge Summary ---
Discharge Provider Provider Patient information: Note initiated : 02/16/21 at 11:13 am Service Date, if different from initiated Date: [] Patient: Celestine Beatty 71 y/o M admitted on 02/13/21 for shortness of breath, racing heart, poss uti. Chief Complaint: [] Date of admission: 02/13/21 11:25 Discharge date: 02/16/21 Primary care physician: Enoch Espinal MD Attending physician on admission: Gustavo Blanca Consults: 02/13/21 Consult to Physician [CONS] Stat Comment: Consulting Provider: Gustavo Blanca Reason For Exam: Physician to Consult Attending physician on discharge: Gustavo Blanca Discharge Meds Discharge Medications Home Medications albuterol sulfate 90 mcg/actuation aerosol inhaler 2 puff INHALATION Q4H PRN 07/27/20 [History Confirmed 02/13/21 Last Taken 02/13/21] gabapentin 300 mg capsule 300 mg PO QDAY 07/27/20 [History Confirmed 02/13/21 Last Taken 02/12/21] ipratropium 0.5 mg-albuterol 3 mg (2.5 mg base)/3 mL nebulization soln 3 ml INHALATION Q4H PRN 07/27/20 [History Confirmed 02/13/21 Last Taken 07/27/20] simvastatin 10 mg tablet 5 mg PO QDAY 07/27/20 [History Confirmed 02/13/21 Last Taken 02/12/21] apixaban 5 mg tablet (Eliquis) 5 mg PO BID #60 tab 07/30/20 [Rx Confirmed 02/13/21 Last Taken 02/13/21] budesonide 0.5 mg/2 mL suspension for nebulization 0.5 mg INHALATION BID ml 08/20/20 [History Confirmed 02/13/21 Last Taken 02/13/21] diltiazem HCl 180 mg capsule,extended release 24 hr 180 mg PO QDAY cap 08/20/20 [History Confirmed 02/13/21 Last Taken 02/13/21] formoterol fumarate 20 mcg/2 mL solution for nebulization 2 ml INHALATION BID ml 08/20/20 [History Confirmed 02/13/21 Last Taken 02/13/21] oxygen 08/20/20 [History Confirmed 02/13/21 Last Taken Unknown] diphenhydramine 25 mg-acetaminophen 500 mg tablet 1 tab PO QHS PRN 02/10/21 [History Confirmed 02/13/21 Last Taken 02/12/21] fluconazole 200 mg tablet 400 mg PO QDAY tab 02/10/21 [History Confirmed 02/13/21 Last Taken 02/13/21] carboxymethylcellulose sodium 1 % eye liquid gel drops 1 drp OPHTHALMIC (EYE) BID PRN 02/13/21 [History Confirmed 02/13/21 Last Taken Unknown] dextromethorphan-guaifenesin 10 mg-100 mg/5 mL oral liquid (Robafen DM Cough) 10 ml PO Q4HP PRN #500 ml 02/16/21 [Rx Last Taken Unknown] levofloxacin 750 mg tablet 750 mg PO Q24H #5 tab 02/16/21 [Rx Last Taken Unknown] prednisone 20 mg tablet 40 mg PO QAMCC #1 tab 02/16/21 [Rx Last Taken Unknown] COURSE Hospital Course Hospital course: Mr. Beatty is a 71 year old M history of atrial fibrillation on Eliquis, COPD with asthma on home oxygen as needed, mixed dyslipidemia, obstructive sleep apnea on CPAP, presenting with 2-day history of shortness of breath with cough with phlegm production with chest pain with wheezing with fever, chills, and diaphoresis. He is vaccinated against Covid pneumonia. Over the past 2 days, he is complaining of shortness of breath, productive cough with green phlegm productions, chest pain especially when he coughs, respiratory wheezings, fever with T-max 101, chills, and diaphoresis. He is also committing of inability to urinate for 1 week. He uses oxygen on a as needed basis. He uses CPAP at night for sleep for sleep apnea. Due to the worsening nature of his symptoms, he decided to come to our ED for further evaluations. Vital signs upon ED prese ntation significant for tachycardia and tachypnea with heart rate up to the 140s and rate of breathing in the mid 30s, respectively. Fever of T-max 39.4. He was also started on 5 L of oxygen's. Labs significant for leukocytosis with WBC 25.1. Lactic acid 1.7. Urine analysis does not suggest the presence of any UTI. Kelley negative. Chest x-ray showing nonspecific inflammatory changes in both lungs superimposed upon underlying moderate emphysema. 02/14: Afebrile overnight. Was on CPAP overnight, currently on 3L/min oxygen. Merritt negative. Blood cultures no growth to date. Sputum culture: gram positive cocci. Improving degree of shortness of breath. c/o productive cough with clear sputum. c/o respiratory wheezing. Denies chest pain. Denies fever, chills, or sweating. 02/15: Afebrile overnight. Was on CPAP overnight, currently on 3L/min oxygen. Blood cultures no growth to date. Sputum culture: presumptive strep pneumoniae. Improving degree of shortness of breath. c/o productive cough with clear sputum. c/o respiratory wheezing. c/o nasal congestion. Denies chest pain. Denies fever, chills, or sweating. 02/16: Patient is tolerating room air. Patient has been afebrile for more than 24 hours. Leukocytosis improving. Culture no growth today. Patient's reached clinical stability. Decision made to discharge patient home with antibiotics and other prescriptions sent to pharmacy. All questions were answered prior to patient being physically discharged. 2 weeks PCP appointment made for the patient. All questions were answered prior to patient being physically dischar ge. Home oxygen set up for him. Discharge diagnosis: CAP, COPD exacerbation Time Spent with Patient Time attestation: Total time spent providing and/or coordinating discharge services: Time spent: Less than 30 minutes EXAM Constitutional Vitals: Temp Pulse Resp BP Pulse Ox 35.8 C L 99 H 20 140/77 96 02/16/21 07:34 02/16/21 10:05 02/16/21 10:05 02/16/21 07:34 02/16/21 10:05 General appearance: cooperative and no acute distress Head Head exam: Present atraumatic and normocephalic Eye Eye exam: Present EOMI and PERRL ENT ENT exam: Present mucous membranes moist, normal exam and normal external ear exam Neck Neck exam: Present normal inspection; Absent lymphadenopathy, tenderness or thyromegaly Respiratory Respiratory exam: Present rhonchi; Absent accessory muscle use, respiratory distress or wheezes Cardiovascular Cardiovascular exam: Present irregular rhythm; Absent JVD GI/Abdominal GI/Abdominal exam: Present normal bowel sounds and soft; Absent organomegaly or tenderness Rectal Rectal exam: Present deferred Extremities Exam Extremities exam: Present full ROM, normal capillary refill and normal inspection; Absent tenderness Neurological Exam Neurological exam: Present alert, CN II-XII intact and oriented X3; Absent motor sensory deficit Psychiatric Psychiatric exam: Present normal affect and normal mood; Absent anxious or depressed Skin Skin exam: Present dry and intact Discharge Data Data Completed and Pending Labs on day of discharge: Labs from last 24 hours 02/16/21 02/16/21 02/16/21 05:24 05:24 05:24 WBC 13.0 H RBC 3.76 L Hgb 11.8 L Hct 35.9 L MCV 95.5 MCH 31.4 MCHC 32.9 RDW 16.0 H Plt Count 324 MPV 10.4 Neut % (Auto) 74.5 Lymph % (Auto) 14.1 L [place] % (Auto) 10.5 Eos % (Auto) 0.7 Baso % (Auto) 0.2 Lymph # (Auto) 1.83 [place] # (Auto) 1.36 H Eos # (Auto) 0.09 Baso # (Auto) 0.02 Absolute Neutrophils 9.70 H Sodium 135 Potassium 4.1 Chloride 100 Carbon Dioxide 24 Anion Gap 11.0 BUN 18 Creatinine 0.5 L GFR Calculation 111 Glucose 84 Calcium 8.5 L Phosphorus 2.6 Magnesium 2.0 Total Bilirubin 0.3 AST 29 ALT 40 H Alkaline Phosphatase 82 Total Protein 6.0 Albumin 2.6 L Globulin 3.4 Albumin/Globulin Ratio 0.8 L Preliminary micro results at discharge 02/13/21 08:07 Blood Culture - Preliminary Blood 02/13/21 08:05 Blood Culture - Preliminary Blood 02/13/21 12:30 Gram Stain - Preliminary Sputum source - Induced Sputum Culture - Preliminary Streptococcus pneumoniae Discharge Plan Patient/Caregiver Discharge Instructions Activity: increase activity as tolerated Diet: Consistent Carbohydrate Prescriptions: New dextromethorphan-guaifenesin [Robafen DM Cough] 10-100 mg/5 mL Liquid 10 ml PO Q4HP PRN (Reason: Cough) Qty: 500 0RF prednisone 20 mg Tablet 40 mg PO QAMCC Qty: 1 0RF levofloxacin 750 mg tablet 750 mg PO Q24H Qty: 5 0RF Continued diltiazem HCl 180 mg capsule,extended release 24hr 180 mg PO QDAY 0RF budesonide 0.5 mg/2 mL suspension for nebulization 0.5 mg inhalation BID 0RF Label Comments: USE 2 ML VIA NEBULIZER TWICE DAILY. formoterol fumarate 20 mcg/2 mL solution for nebulization 2 ml inhalation BID 0RF Label Comments: USE 2 ML VIA NEBULIZER TWICE DAILY. fluconazole 200 mg tablet 400 mg PO QDAY 0RF Label Comments: TAKE 2 TABLETS BY MOUTH EVERY DAY FOR 12 WEEKS start 11/17/20 diphenhydramine-acetaminophen 25-500 mg tablet 1 tab PO QHS PRN (Reason: Sleep) 0RF ipratropium-albuterol 0.5 mg-3 mg(2.5 mg base)/3 mL solution for nebulization 3 ml INHALATION Q4H PRN (Reason: Shortness Of Breath Or Wheezing) 0RF Label Comments: USE 1 VIAL VIA NEBULIZATION FOUR TIMES DAILY simvastatin 10 mg tablet 5 mg PO QDAY 0RF Label Comments: TAKE 1/2 TABLET BY MOUTH EVERY NIGHT gabapentin 300 mg capsule 300 mg PO QDAY 0RF Label Comments: TAKE 1 CAPSULE BY MOUTH EVERY NIGHT albuterol sulfate 90 mcg/actuation HFA aerosol inhaler 2 puff INHALATION Q4H PRN (Reason: Shortness Of Breath Or Wheezing) 0RF Label Comments: INHALE 2 PUFFS INTO THE LUNGS FOUR TIMES DAILY AND EVERY 4 HOURS NEEDED Eliquis 5 mg tablet 5 mg PO BID Qty: 60 0RF carboxymethylcellulose sodium 1 % Drops, Liquid Gel 1 drp OPHTHALMIC (EYE) BID PRN (Reason: Dry Eyes) 0RF No Action (DME) oxygen See Rx Instructions .Route .MEDSUPPLY 0RF Rx Instructions: 2-4 liters at home prn to keep sats above 88% Follow Up Plan Follow up with: Enoch Esipnal MD [Primary Care Provider] - Patient Disposition: Home, Self-Care Prognosis: Fair Rehab Potential: Good I certify that the patient requires SNF services: No Overall status at discharge: patient is progressing back to baseline Discharge Orders: Discharge Order (Routine); Ordered 02/16/21 Ordered By: Gustavo Blanca QUALITY VTE Deep Vein Thrombosis/Pulmonary Embolism Present on Admission: No
== END 2021-02-16 15:10 | disposition home or self-care (01) | DRG 871 ==
LOC: ED 07:41 → ICU 11:25 → MEDSUR 02-14 11:12
PROVIDERS: ADMIT Internal Medicine; ATTEND Internal Medicine

== ENCOUNTER 2021-03-08 13:37 | Inpatient (IN) ==
--- NOTE | 2021-03-08 14:22 | Emergency Department Note ---
SOB HPI <Lj Bui PA-C - Last Filed: 03/08/21 15:09> General Chief Complaint: Shortness of Breath/Dyspnea Stated Complaint: flu/cold, sob Time Seen by Provider: 03/08/21 13:43 Source: patient and family Mode of arrival: wheelchair Limitations: no limitations History of Present Illness HPI Narrative: Narrative: 71-year-old male with a history of severe emphysema with a recent stay for pneumonia over [place], type 2 diabetes, coronary artery disease, heart failure, pulmonary hypertension, GERD, sleep apnea, valley fever and A. fib presents the ER to be evaluated for fever, body aches, chills, myalgias and increasing shortness of breath. [facility] and was concerned for possible COVID. His son who lives with them tested positive for COVID yesterday. He said his symptoms have gotten worse today and he wanted to get further evaluation. [facility] lab work and a chest x-ray as well as a COVID send out test. He was desaturating there as well as here. He said it is somewhat difficult to breathe at this time. He denies chest pain, chest pressure, abdominal pain, dysuria, urgency or frequency. He is seen by Dr. De La Garza the local administrative assistant front desk who is treating him for valley fever currently. Related Data Home Medications Medication Instructions Recorded Confirmed albuterol sulfate 90 mcg/actuation 2 puff INHALATION Q4H PRN 07/27/20 03/08/21 aerosol inhaler gabapentin 300 mg capsule 300 mg PO QDAY 07/27/20 03/08/21 ipratropium 0.5 mg-albuterol 3 mg 3 ml INHALATION Q4H PRN 07/27/20 03/08/21 (2.5 mg base)/3 mL nebulization soln simvastatin 10 mg tablet 5 mg PO QDAY 07/27/20 03/08/21 budesonide 0.5 mg/2 mL suspension 0.5 mg INHALATION BID ml 08/20/20 03/08/21 for nebulization diltiazem HCl 180 mg 180 mg PO QDAY cap 08/20/20 03/08/21 capsule,extended release 24 hr formoterol fumarate 20 mcg/2 mL 2 ml INHALATION BID ml 08/20/20 03/08/21 solution for nebulization oxygen 08/20/20 03/08/21 diphenhydramine 25 1 tab PO QHS PRN 02/10/21 03/08/21 mg-acetaminophen 500 mg tablet carboxymethylcellulose sodium 1 % 1 drp OPHTHALMIC (EYE) BID PRN 02/13/21 03/08/21 eye liquid gel drops guaifenesin 400 mg tablet (Mucus 400 mg PO QDAY tab 03/02/21 03/08/21 Relief) Previous Rx's Medication Instructions Recorded apixaban 5 mg tablet (Eliquis) 5 mg PO BID #60 tab 07/30/20 dextromethorphan-guaifenesin 10 10 ml PO Q4HP PRN #500 ml 02/16/21 mg-100 mg/5 mL oral liquid (Robafen DM Cough) fluconazole 200 mg tablet 400 mg PO QDAY #180 tab 03/02/21 Allergies Allergy/AdvReac Type Severity Reaction Status Date / Time fluoxetine [From Prozac] AdvReac Severe suicidal Verified 03/08/21 13:39 ideation Review of Systems <Lj Bui PA-C - Last Filed: 03/08/21 15:09> ROS ROS Narrative: Narrative: All systems ED: reviewed and negative except as stated. PFSH <Lj Bui PA-C - Last Filed: 03/08/21 15:09> Narrative Patient History Narrative: Narrative: Medical/Surgical/Family History All Active Problems (Updated 03/08/21 @ 15:09 by Lj Bui PA-C) COVID-19 (Acute) Weakness (Acute) LATASHA on CPAP (Acute) Pneumonia (Acute) Acute exacerbation of chronic obstructive pulmonary disease (Acute) Acute bronchospasm (Acute) Upper respiratory infection, viral (Acute) Mixed dyslipidemia (Acute) Permanent atrial fibrillation (Acute) Sepsis (Acute) Community acquired pneumonia (Acute) T2DM (type 2 diabetes mellitus) (Acute) COPD exacerbation (Acute) COPD (chronic obstructive pulmonary disease) (Chronic) CAD (coronary artery disease) (Chronic) Multiple pulmonary nodules (Chronic) Afib (Chronic) Neuropathy (Chronic) Tobacco dependence in remission (Chronic) (HFpEF) heart failure with preserved ejection fraction (Chronic) Pulmonary hypertension (Chronic) Hypersomnia (Chronic) Snoring (Chronic) GERD (gastroesophageal reflux disease) (Chronic) Osteoarthritis (Chronic) Sleep apnea (Chronic) Hyperlipidemia (Chronic) Bilateral inguinal hernia (Chronic) Medicare annual wellness visit, initial (Acute) Inguinal hernia (Chronic) Elevated hemoglobin A1c (Acute) Cavitary lesion of lung (Chronic) Coccidioidomycosis, primary pulmonary (Acute) Skin lesion of face (Chronic) Medical History (HFpEF) heart failure with preserved ejection fraction Afib Bilateral inguinal hernia CAD (coronary artery disease) Cavitary lesion of lung Coccidioidomycosis, primary pulmonary COPD (chronic obstructive pulmonary disease) Elevated hemoglobin A1c GERD (gastroesophageal reflux disease) Hyperlipidemia Hypersomnia Inguinal hernia Medicare annual wellness visit, initial Multiple pulmonary nodules Neuropathy LATASHA on CPAP Osteoarthritis Spine and shoulders Pneumonia Strep pneumonia culture during hospitalization 02/13 to 02/16/2021 Pulmonary hypertension Moderate ECHO 07/2020 Pulmonary infiltrate with cavitation Skin lesion of face Sleep apnea Snoring SOB (shortness of breath) Tobacco dependence in remission Surgical History History of reverse total replacement of shoulder joint (~2019) History of shoulder surgery Repair x 3 Family History Father Cancer Mother High blood pressure Brother High blood pressure Social History Smoking Status: Former smoker Alcohol Intake Frequency: former alcohol drinker Substance Use: marijuana Exam <Lj Bui PA-C - Last Filed: 03/08/21 15:09> Narrative Narrative: Narrative: Gen: Patient is sitting upright in bed with increased respiratory effort Eyes: PERRL, no conjunctival injection , and symmetrical lids. Sclerae non icteric HENMT: Normocephalic Atraumatic head, external nose and ears. Moist MM. Neck: Symmetric, trachea midline, CVS: +S1/S2, No murmurs or gallops. Radial pulses 2+ and equal bilat. No swelling RESP: Increased respiratory effort distant lung sounds with mild rales GI: Nontender/Nondistended (NTND), No focal tenderness MSK: Extremities w/o deformity or ttp. No cyanosis or clubbing. Skin: Warm, Dry . No rashes or lesions . Cap refill less than 2. Psych: Awake, Alert, & Oriented (AAO) x3. Appropriate mood and affect . General Limitations: no limitations Course <Lj Bui PA-C - Last Filed: 03/08/21 15:09> Vital Signs Vital signs: Vital Signs Temperature 97.5 F 03/08/21 13:39 Pulse Rate 83 03/08/21 13:39 Respiratory Rate 20 03/08/21 13:39 Blood Pressure 106/54 03/08/21 13:39 Pulse Oximetry (%) 95 03/08/21 13:39 Temperature 97.5 F 03/08/21 13:39 Pulse Rate 93 H 03/08/21 18:33 Respiratory Rate 20 03/08/21 18:33 Blood Pressure 125/74 03/08/21 17:46 Pulse Oximetry (%) 93 03/08/21 18:33 [facility] <Lj Bui PA-C - Last Filed: 03/08/21 15:09> MDM Narrative Medical decision making narrative: Narrative: Patient has a history of severe emphysema, pneumonia, valley fever and a suspected positive for COVID at this time his send out is pending but a rapid will be ordered as well. His chest x-ray shows large fluid-filled bleb in the left upper lobe. He has resolving other issues from [place] on his x-ray. CBC was unremarkable as well as [id number] Chem-8. Patient has classic history for COVID and known exposure. He is De satting when he gets up and we have documented saturations below 90% and he was as low as 85%. He does have an increased respiratory effort he states it is harder to breathe. He is currently on 2 L/min saturating fine. Even at rest his oxygen saturations have been going from the mid 90s to 85. I am sure they drop significantly when he is ambulated. also has a history of A. fib which she takes diltiazem and Eliquis for this. Normal sinus rhythm at a rate of 82 bpm with left axis deviation and a left anterior fascicular block with prolonged QTC at 511 no evidence of acute ischemia Rapid COVID: Positive I spoke with Dr. Leal who agreed to come down evaluate the patient and assume care for him at this time. Lab Data Labs: Lab Results 03/08/21 03/08/21 Range/Units 11:40 14:40 D-Dimer 0.41 (0.27-0.50) ug/mL Ferritin 381.8 (30.0-400.0) ng/mL C-Reactive Protein 2.00 H (0.03-0.80) mg/dL ED POC Tests ED POC Tests: ZAFAR - SARS Antigen Positive Discharge Plan Patient/Caregiver Discharge Instructions Pt seen by LABORATORY MANAGER/PA only: Yes Clinical Impression: COVID-19 Patient Disposition: Xfer As Inpt ([facility]) Discharge Date/Time: 03/08/21 18:00
--- NOTE | 2021-03-08 15:38 | Internal Med History&Physical ---
HPI History of Present Illness Patient information: Note initiated : 03/08/21 at 3:34 pm Service Date, if different from initiated Date: [] Patient: Celestine Beatty a 71 y/o M admitted on for flu/cold, sob. Chief Complaint: [] History of present illness: Mr. Beatty is a 71 year old M Who was recently admitted in January for community-acquired pneumonia sepsis and acute exacerbation of COPD. He was discharged on the and was doing well afterwards and weaning off his oxygen and until about 3 days ago he became more short of breath and required oxygen more frequently. Had body aches chills denied fever. No change in his chronic cough. He is vaccinated and did get the booster. Minor care today and he was found to be sats in the I believe the mid 80s and had a positive COVID and was sent to the ED. He is on 2 L nasal cannula in the ED. Chest x-ray did not show anything new/acute. We will need a CT of the chest to further evaluate his hypoxia. Review of Systems: Pertinent positives as above. Denies headache/fever/nausea/vomiting/chest or abdominal pain/diarrhea. 10 point review of system reviewed and negative PFSH PFSH All Active Problems (Updated 03/08/21 @ 15:09 by Lj Bui PA-C) COVID-19 (Acute) Weakness (Acute) LATASHA on CPAP (Acute) Pneumonia (Acute) Acute exacerbation of chronic obstructive pulmonary disease (Acute) Acute bronchospasm (Acute) Upper respiratory infection, viral (Acute) Mixed dyslipidemia (Acute) Permanent atrial fibrillation (Acute) Sepsis (Acute) Community acquired pneumonia (Acute) T2DM (type 2 diabetes mellitus) (Acute) COPD exacerbation (Acute) COPD (chronic obstructive pulmonary disease) (Chronic) CAD (coronary artery disease) (Chronic) Multiple pulmonary nodules (Chronic) Afib (Chronic) Neuropathy (Chronic) Tobacco dependence in remission (Chronic) (HFpEF) heart failure with preserved ejection fraction (Chronic) Pulmonary hypertension (Chronic) Hypersomnia (Chronic) Snoring (Chronic) GERD (gastroesophageal reflux disease) (Chronic) Osteoarthritis (Chronic) Sleep apnea (Chronic) Hyperlipidemia (Chronic) Bilateral inguinal hernia (Chronic) Medicare annual wellness visit, initial (Acute) Inguinal hernia (Chronic) Elevated hemoglobin A1c (Acute) Cavitary lesion of lung (Chronic) Coccidioidomycosis, primary pulmonary (Acute) Skin lesion of face (Chronic) Medical History (HFpEF) heart failure with preserved ejection fraction Afib Bilateral inguinal hernia CAD (coronary artery disease) Cavitary lesion of lung Coccidioidomycosis, primary pulmonary COPD (chronic obstructive pulmonary disease) Elevated hemoglobin A1c GERD (gastroesophageal reflux disease) Hyperlipidemia Hypersomnia Inguinal hernia Medicare annual wellness visit, initial Multiple pulmonary nodules Neuropathy LATASHA on CPAP Osteoarthritis Spine and shoulders Pneumonia Strep pneumonia culture during hospitalization 02/13 to 02/16/2021 Pulmonary hypertension Moderate ECHO 07/2020 Pulmonary infiltrate with cavitation Skin lesion of face Sleep apnea Snoring SOB (shortness of breath) Tobacco dependence in remission Surgical History History of reverse total replacement of shoulder joint (~2019) History of shoulder surgery Repair x 3 Family History Father Cancer Mother High blood pressure Brother High blood pressure Social History household members: spouse lives independently: Yes marital status: occupational status: retired occupation: Retired from [employer] in [facility]. pets and animals: Yes (1 dog.) pets and animals: dog(s) smoking status: Former smoker quit date: 07/31/20 pack-years: 50 alcohol intake frequency: former alcohol drinker substance use type: marijuana MEDS/ALLERGIES Home Medications and Allergies Home Medications Medication Instructions Recorded Confirmed Type albuterol sulfate 90 mcg/actuation 2 puff INHALATION Q4H PRN 07/27/20 03/08/21 History aerosol inhaler gabapentin 300 mg capsule 300 mg PO QDAY 07/27/20 03/08/21 History ipratropium 0.5 mg-albuterol 3 mg 3 ml INHALATION Q4H PRN 07/27/20 03/08/21 History (2.5 mg base)/3 mL nebulization soln simvastatin 10 mg tablet 5 mg PO QDAY 07/27/20 03/08/21 History apixaban 5 mg tablet (Eliquis) 5 mg PO BID #60 tab 07/30/20 03/08/21 Rx budesonide 0.5 mg/2 mL suspension 0.5 mg INHALATION BID ml 08/20/20 03/08/21 History for nebulization diltiazem HCl 180 mg 180 mg PO QDAY cap 08/20/20 03/08/21 History capsule,extended release 24 hr formoterol fumarate 20 mcg/2 mL 2 ml INHALATION BID ml 08/20/20 03/08/21 History solution for nebulization oxygen 08/20/20 03/08/21 History diphenhydramine 25 1 tab PO QHS PRN 02/10/21 03/08/21 History mg-acetaminophen 500 mg tablet carboxymethylcellulose sodium 1 % 1 drp OPHTHALMIC (EYE) BID PRN 02/13/21 03/08/21 History eye liquid gel drops dextromethorphan-guaifenesin 10 10 ml PO Q4HP PRN #500 ml 02/16/21 03/08/21 Rx mg-100 mg/5 mL oral liquid (Robafen DM Cough) fluconazole 200 mg tablet 400 mg PO QDAY #180 tab 03/02/21 03/08/21 Rx guaifenesin 400 mg tablet (Mucus 400 mg PO QDAY tab 03/02/21 03/08/21 History Relief) Allergies Allergy/AdvReac Type Severity Reaction Status Date / Time fluoxetine [From Prozac] AdvReac Severe suicidal Verified 03/08/21 13:39 ideation EXAM Constitutional Vitals: Temp Pulse Resp BP Pulse Ox 97.5 F 92 H 25 H 107/76 97 03/08/21 13:39 03/08/21 15:18 03/08/21 15:18 03/08/21 14:46 03/08/21 14:46 Exam: General: Alert, Awake, No acute Distress, cachexia (pulmonary) Eyes/N/T: EOMI, PERRL, Head/Neck: neck supple, normocephalic atraumatic CV: RRR, No murmurs, normal s1/s2 Pulm: moderately diminished b/l, mild b/l wheezing, prolonged expiratory phase Abd: soft, nontender, +BS x4 Ext: no clubbing/cyanosis/edema Neuro: Alert, no focal deficits, moves all extremities, CN 2-12 grossly intact, symmetrical strength b/l upper/lower, sensations intact b/l upper/lower Skin: warm/dry DATA Data Completed and Pending Labs: Labs from last 24 hours 03/08/21 11:40 Ferritin Pending C-Reactive Protein Pending A/P Narrative A/P Narrative: A: *Acute on chronic respiratory failure: suspect 2/2 AECOPD +/- early developing covid pna -on 2L NC -no leukocytosis, recently treated for bacterial PNA. -CT chest with severe emphysema and fluid filled bleb, no PTX/effusion *Covid (+) w/viral prodrome: -inflammatory markers unremarkable *Advanced COPD w/likely mild exacerbation (has O2 @home but typically does not use): *Pulmonary cachexia / Malnutrition: *Being treated for coccidiomycosis PNA by pulmonology: on fluconazole *DM W/neuropathy: *LATASHA: *Chronic A. fib: On diltiazem/Eliquis *Anxiety: P: -corticosteroids, rem, -nebs, RT, IS/Acapella -O2 supp, wean as able -cont home dilt/eliquis -cont home fluconazole -Dietary consult -PT/OT -Home medication reconciliation -ppx: Eliquis Full code Time Spent With Patient Time: Total time spent is greater than 50% in coordination of care (as documented) at patient's floor/unit and/or counseling patient:
[2021-03-08] MEDS ORDERED: methylPREDNISolone SOD SUCC 125 MG/2 ML VIAL IV ONE (15:55)
[2021-03-08 16:11] LABS: Ferritin 381.8 ng/mL (30.0-400.0)
[2021-03-08] MEDS ORDERED: IPRATROPIUM/ALBUTEROL 3 ML AMPUL.NEB NEB ONE (16:27)
--- NOTE | 2021-03-08 17:30 | Cat Scan Report ---
History: Emphysema, hypoxia, flu symptoms and worsening shortness of breath TECHNIQUE: The chest was imaged without contrast in axial plane at 2.5 mm intervals. Sagittal, coronal and axial MIPS images were created. The radiation exposure was limited using dose reduction technology. FINDINGS: Severe emphysema is present both lungs. There is a giant bleb in the left upper lobe measuring 7 x 11 cm in size. It contains a large air-fluid level. A smaller bleb with an air-fluid level is present medially at the right apex which measures 3 cm. There is a poorly defined conglomerate mass in the right apex with a band of scar tissue extending to the superior mediastinum and another band of scar extending to the lateral pleural surface. It measures roughly 5 cm in greatest dimension. This is unchanged from the prior CT done on 09/27/20. There are other solid nodular densities present in the left upper lobe and superior segment of the left lower lobe and basilar segments of left lower lobe. There is one located above the left diaphragm measuring 2.3 cm in size. This is new since 09/27/20. Although it contains an air-fluid level. The central component has a density of 40 Hounsfield units suggesting it may be solid or semisolid. Anterior to this there is a second nodular density which has diminished in size. There is no evidence of pneumonia. No pleural effusion is present. There are no abnormally enlarged lymph nodes. Incidentally noted is a 5 mm stone in a calyx in the lower half of the right kidney. This is a chronic stable finding. The heart is normal in size. Aorta is normal in caliber. There are a few reactive lymph nodes in the mediastinum. Largest is anterior to the distal trachea and measures 11 mm. IMPRESSION: Severe emphysema Conglomerate mass in the right upper lobe which is unchanged and probably represents scar. Nonspecific nodular densities in both lungs. Some have improved and others have diminished in size. This is probably an inflammatory reaction. An underlying lung cancer cannot be excluded. PET/CT would be helpful for further evaluation if treatment is a consideration. No evidence of acute pneumonia Interpreted and Authenticated by: Capo Garcia 03/08/21
[2021-03-08] MEDS ORDERED: MAGNESIUM SULFATE 2 GM/50 ML BAG IV PRN (18:04)
[2021-03-08] MEDS ORDERED: POLYETHYLENE GLYCOL 3350 17 GM PACKET PO PRN (18:04)
[2021-03-08] MEDS ORDERED: POTASSIUM CHLORIDE 20 MEQ TABLET PO PRN ×2 (18:04)
[2021-03-08] MEDS ORDERED: ONDANSETRON 4 MG/2 ML VIAL IV PRN (18:04)
[2021-03-08] MEDS ORDERED: ACETAMINOPHEN 325 MG TABLET PO PRN (18:04)
[2021-03-08] MEDS ORDERED: POTASSIUM CHLORIDE 40 MEQ in DEXTROSE 5% IN WATER 500 ML IV PRN (18:04)
[2021-03-08] MEDS ORDERED: IPRATROPIUM/ALBUTEROL 3 ML AMPUL.NEB NEB PRN (18:04)
[2021-03-08] MEDS ORDERED: SENNOSIDES 1 TABLET PO PRN (18:04)
[2021-03-08] MEDS ORDERED: REMDESIVIR 100 MG in 0.9 % SODIUM CHLORIDE 250 ML IV SCH (18:04)
[2021-03-08] MEDS ORDERED: REMDESIVIR 200 MG in 0.9 % SODIUM CHLORIDE 250 ML IV ONE (18:04)
[2021-03-08] MEDS: IPRATROPIUM/ALBUTEROL 3 ML AMPUL.NEB NEB SCH (18:32)
[2021-03-08] MEDS: 0.9 % SODIUM CHLORIDE 10 ML SYRINGE IV SCH (21:04)
[2021-03-08] MEDS: methylPREDNISolone SOD SUCC 40 MG/ML VIAL IV SCH (21:53)
[2021-03-08] MEDS ORDERED: diphenhydrAMINE 25 MG CAPSULE PO PRN (22:04)
[2021-03-08] MEDS ORDERED: ACETAMINOPHEN 500 MG TABLET PO PRN (22:06)
[2021-03-08] MEDS ORDERED: diphenhydrAMINE 25 MG CAPSULE ONE (22:16)
[2021-03-08] MEDS ORDERED: ACETAMINOPHEN 500 MG TABLET PO ONE (22:16)
[2021-03-08] MEDS ORDERED: APIXABAN 5 MG TABLET PO ONE (22:25)
[2021-03-08] MEDS: APIXABAN 5 MG TABLET PO SCH (22:28)
[2021-03-09] MEDS: IPRATROPIUM/ALBUTEROL 3 ML AMPUL.NEB NEB SCH ×3 (01:04→18:39)
[2021-03-09] MEDS: 0.9 % SODIUM CHLORIDE 10 ML SYRINGE IV SCH ×4 (04:29→21:56)
[2021-03-09 07:18] LABS: ALT/SGPT 17 U/L (<40); AST/SGOT 22 U/L (<40); Albumin 3.6 gm/dL (3.2-5.2); Albumin/Globulin Ratio 1.3 (1.0-2.3); Alkaline Phosphatase 69 U/L (39-117); Bilirubin,Direct < 0.2 mg/dL (0-0.3); Bilirubin,Total < 0.2 mg/dL (0.1-1.0); Blood Urea Nitrogen 18 mg/dL (8-23); Calcium 8.5 mg/dL (8.6-10.4); Carbon Dioxide 23 mmol/L (22-30); Chloride 97 mmol/L (96-108); Globulin 2.8 gm/dL (2.2-3.7); Glomerular Filtration Rate 96; Glucose 154 mg/dL (70-105); Lactate Dehydrogenase 179 U/L (135-225); Triglycerides 55 mg/dL (<150); Uric Acid 4.6 mg/dL (2.5-8.0)
[2021-03-09] MEDS ORDERED: ACETAMINOPHEN/DIPHENHYDRAMINE 1 TABLET PO PRN (07:41)
[2021-03-09] MEDS ORDERED: METOPROLOL TARTRATE 5 MG/5 ML VIAL IV PRN (07:42)
--- NOTE | 2021-03-09 07:42 | Internal Med Progress Note ---
SUBJECTIVE Subjective Patient information: Note initiated : 03/09/21 at 7:38 am Service Date, if different from initiated Date: [] Patient: Celestine Beatty a 71 y/o M admitted on 03/08/21 for flu/cold, sob. Chief Complaint: [] Interval history: History of present illness: Mr. Beatty is a 71 year old M Who was recently admitted in January for community-acquired pneumonia sepsis and acute exacerbation of COPD. He was discharged on the and was doing well afterwards and weaning off his oxygen and until about 3 days ago he became more short of breath and required oxygen more frequently. Had body aches chills denied fever. No change in his chronic cough. He is vaccinated and did get the booster. Minor care today and he was found to be sats in the I believe the mid 80s and had a positive COVID and was sent to the ED. He is on 2 L nasal cannula in the ED. Chest x-ray did not show anything new/acute. We will need a CT of the chest to further evaluate his hypoxia. 03/09 Feeling better today. On 1 L nasal cannula. Likely discharge tomorrow. Review of Systems: denies headache/fever/chills/nausea/vomiting/chest or abdominal pain/diarrhea. Otherwise see above. Constitutional Vitals: Vital Signs Temp Pulse Resp BP Pulse Ox 96.8 F L 86 24 H 110/71 97 03/09/21 04:23 03/09/21 04:23 03/09/21 04:23 03/09/21 04:23 03/09/21 04:23 Period Temp Pulse Resp BP Sys/Mcclendon Pulse Ox Last 24 Hr 96.8 F-97.5 F 77-96 11-26 95-145/54-99 88-99 Intake and Output 03/08/21 03/09/21 03/09/21 21:59 05:59 13:59 Intake Total 250 300 Output Total 650 Balance 250 -350 Weight 62.142 kg Intake & Output: Intake & Output 03/08/21 03/09/21 03/09/21 21:59 05:59 13:59 Intake Total 250 300 Output Total 650 Balance 250 -350 Weight 62.142 kg Intake: IV 250 Veklury 200 mg In Sodium 250 Chloride 0.9% 250 ml @ 500 mls/ hr IV ONCE ONE Rx#:[id number] Oral 300 Output: Void Amount 650 Other: Urine Appearance Clear Urine Color Bright Yellow Urine Odor Normal # Voids 1 Exam: General: Alert, Awake, No acute Distress, cachexia (pulmonary) Eyes/N/T: EOMI, Head/Neck: neck supple, CV: RRR, No murmurs, Pulm: moderately diminished b/l but improved some today, no wheezing post nebulizer treatment, prolonged expiratory phase Abd: soft, nontender, +BS x4 Ext: no clubbing/cyanosis/edema Neuro: Alert, no focal deficits, moves all extremities, Skin: warm/dry OBJ DATA Labs CBC & Chem 7: 03/09/21 05:44 Labs: Abnormal Lab Results 03/09/21 03/08/21 05:44 11:40 Sodium 132 L Glucose 154 H Calcium 8.5 L C-Reactive Protein 1.50 H 2.00 H Meds: Medications Acetaminophen (Acetaminophen 325 Mg Tablet) 650 mg PO Q6HP PRN; Protocol PRN Reason: Per Pain Protocol/Fever > 101 Acetaminophen (Acetaminophen 500 Mg Tablet) 500 mg PO HSP PRN; Protocol PRN Reason: Insomnia Last Admin: 03/08/21 22:28 Dose: 500 mg Documented by: Albuterol/Ipratropium (Ipratropium/Albuterol 3 Ml Ampul.Neb) 3 ml NEB Q4HP PRN PRN Reason: Shortness Of Breath Albuterol/Ipratropium (Ipratropium/Albuterol 3 Ml Ampul.Neb) 3 ml NEB Q8H [facility] Last Admin: 03/09/21 01:04 Dose: 3 ml Documented by: Apixaban (Apixaban 5 Mg Tablet) 5 mg PO BID [facility] Last Admin: 03/08/21 22:28 Dose: 5 mg Documented by: Diphenhydramine HCl (Diphenhydramine 25 Mg Capsule) 25 mg PO HSP PRN PRN Reason: Insomnia Last Admin: 03/08/21 22:28 Dose: 25 mg Documented by: Potassium Chloride 40 meq/ (Dextrose) 520 mls @ 130 mls/hr IV UD PRN PRN Reason: Potassium < 3 Magnesium Sulfate (Magnesium Sulfate) 2 gm in 50 mls @ 50 mls/hr IV UD PRN PRN Reason: Magnesium </= 1.6 REMDESIVIR 100 mg/ Sodium (Chloride) 250 mls @ 500 mls/hr IV Q24H [facility] Stop: 03/12/21 10:29 Methylprednisolone Sodium Succinate (Methylprednisolone Sod Succ 40 Mg/Ml Vial) 40 mg IV Q12 [facility] Last Admin: 03/08/21 21:53 Dose: 40 mg Documented by: Ondansetron HCl (Ondansetron 4 Mg/2 Ml Vial) 4 mg IV Q4HP PRN PRN Reason: Nausea And Vomiting Polyethylene Glycol (Polyethylene Glycol 3350 17 Gm Packet) 17 gm PO DAILYP PRN PRN Reason: Constipation Potassium Chloride (Potassium Chloride 20 Meq Tablet) 40 meq PO UD PRN PRN Reason: Potssium is 3-3.5 Potassium Chloride (Potassium Chloride 20 Meq Tablet) 40 meq PO UD PRN PRN Reason: Potassium < 3 Senna (Sennosides 1 Tablet) 2 tab PO DAILYP PRN PRN Reason: Constipation Sodium Chloride (0.9 % Sodium Chloride 10 Ml Syringe) 10 ml IV Q8 [facility] Last Admin: 03/09/21 04:29 Dose: 10 ml Documented by: A/P Narrative A/P Narrative: A: *Acute on chronic respiratory failure: suspect 2/2 AECOPD -on 1L NC -no leukocytosis, recently treated for bacterial PNA. -CT chest with severe emphysema and fluid filled bleb, no PTX/effusion *Covid (+) w/viral prodrome: -inflammatory markers low *Advanced COPD w/likely mild exacerbation (has O2 @home but typically does not use): *Pulmonary cachexia / Malnutrition: *Being treated for coccidiomycosis PNA by pulmonology: on fluconazole *DM W/neuropathy: *LATASHA: *Chronic A. fib: On diltiazem/Eliquis *Anxiety: P: -corticosteroids, rem, -nebs, RT, IS/Acapella -O2 supp, wean as able -cont home dilt/eliquis -cont home fluconazole -Dietary consult -PT/OT -ppx: Eliquis Full code Time Spent With Patient Time: Total time spent is greater than 50% in coordination of care (as documented) at patient's floor/unit and/or counseling patient:
[2021-03-09] MEDS ORDERED: CARBOXYMETHYLCELLULOSE SODIUM 1 EACH DROPER.GEL OU PRN (07:52)
[2021-03-09] MEDS ORDERED: APIXABAN 5 MG TABLET PO SCH (09:00)
[2021-03-09] MEDS: BUDESONIDE 0.5 MG/2 ML AMPUL.NEB NEB SCH ×2 (09:02→21:24)
[2021-03-09] MEDS ORDERED: guaiFENesin/DEXTROMETHORPHAN ORAL SOL PO PRN (10:09)
[2021-03-09] MEDS: REMDESIVIR 100 MG in 0.9 % SODIUM CHLORIDE 250 ML IV SCH (11:04)
[2021-03-09] MEDS: methylPREDNISolone SOD SUCC 40 MG/ML VIAL IV SCH ×2 (11:04→21:55)
[2021-03-09] MEDS: DILTIAZEM 180 MG CAP.XL.24H PO SCH (11:05)
[2021-03-09] MEDS: FLUCONAZOLE 100 MG TABLET PO SCH (11:05)
[2021-03-09] MEDS: SIMVASTATIN 10 MG TABLET PO SCH (11:06)
[2021-03-09] MEDS: guaiFENesin 600 MG TAB.SR.12H PO SCH (11:07)
[2021-03-09] MEDS: APIXABAN 5 MG TABLET PO SCH ×2 (11:07→21:55)
[2021-03-09] MEDS: GABAPENTIN 300 MG CAPSULE PO SCH (11:08)
[2021-03-09] MEDS: FORMOTEROL FUMARATE 20 MCG/2 ML INH SCH ×2 (11:08→21:56)
[2021-03-09] MEDS: DOCUSATE SODIUM 100 MG CAPSULE PO SCH ×2 (11:09→21:55)
--- NOTE | 2021-03-09 14:56 | EKG ---
[facility] Test Date: 2021-03-08 Pat Name: Celestine Beatty Department: ED Room: Gender: Male [employer]: : [id number] Requested By: Lj Bui Order Number: [id number] Reading MD: Zain Allen Measurements Intervals Wheeler Rate: 82 P: 85 MI: 123 QRS: -74 QRSD: 112 T: 76 QT: 437 QTc: 511 Interpretive Statements Sinus rhythm Left anterior fascicular block Prolonged QT interval Electronically Signed On 03-09-2021 14:55:33 PST by Zain Allen /store/M0/[id number]
[2021-03-09] MEDS ORDERED: MELATONIN 3 MG TABLET PO SCH (21:00)
[2021-03-10] MEDS: IPRATROPIUM/ALBUTEROL 3 ML AMPUL.NEB NEB SCH ×2 (02:54→08:43)
[2021-03-10] MEDS: 0.9 % SODIUM CHLORIDE 10 ML SYRINGE IV SCH ×2 (05:52→16:33)
[2021-03-10] MEDS ORDERED: ACETAMINOPHEN/DIPHENHYDRAMINE 1 TABLET PO PRN (07:45)
[2021-03-10] MEDS: BUDESONIDE 0.5 MG/2 ML AMPUL.NEB NEB SCH (08:43)
[2021-03-10 08:59] LABS: ALT/SGPT 29 U/L (<40); AST/SGOT 31 U/L (<40); Albumin 3.5 gm/dL (3.2-5.2); Albumin/Globulin Ratio 1.1 (1.0-2.3); Alkaline Phosphatase 65 U/L (39-117); Bilirubin,Total < 0.2 mg/dL (0.1-1.0); Blood Urea Nitrogen 22 mg/dL (8-23); Calcium 8.5 mg/dL (8.6-10.4); Carbon Dioxide 25 mmol/L (22-30); Chloride 101 mmol/L (96-108); Globulin 3.3 gm/dL (2.2-3.7); Glomerular Filtration Rate 96; Glucose 165 mg/dL (70-105)
--- NOTE | 2021-03-10 11:46 | Discharge Summary ---
Discharge Provider Provider Patient information: Note initiated : 03/10/21 at 11:42 am Service Date, if different from initiated Date: [] Patient: Celestine Beatty 71 y/o M admitted on 03/08/21 for flu/cold, sob. Chief Complaint: [] Date of admission: 03/08/21 18:00 Discharge date: 03/10/21 Primary care physician: Enoch Espinal MD Attending physician on admission: Cristobal Leal Consults: 03/08/21 Consult to Physician [CONS] Stat Comment: Consulting Provider: Cristobal Leal Reason For Exam: Physician to Consult Consult to Physician [CONS] Stat Comment: Consulting Provider: Cristobal Leal Reason For Exam: Physician to Consult Attending physician on discharge: Gustavo Figueroa Pui Discharge Meds Discharge Medications Home Medications albuterol sulfate 90 mcg/actuation aerosol inhaler 2 puff INHALATION Q4H PRN 07/27/20 [History Confirmed 03/08/21 Last Taken 03/07/21 20:00] gabapentin 300 mg capsule 300 mg PO QDAY 07/27/20 [History Confirmed 03/08/21 Last Taken 03/07/21] ipratropium 0.5 mg-albuterol 3 mg (2.5 mg base)/3 mL nebulization soln 3 ml INHALATION Q4H PRN 07/27/20 [History Confirmed 03/08/21 Last Taken 03/08/21] simvastatin 10 mg tablet 5 mg PO QDAY 07/27/20 [History Confirmed 03/08/21 Last Taken 03/07/21] apixaban 5 mg tablet (Eliquis) 5 mg PO BID #60 tab 07/30/20 [Rx Confirmed 03/08/21 Last Taken 03/08/21] budesonide 0.5 mg/2 mL suspension for nebulization 0.5 mg INHALATION BID ml 08/20/20 [History Confirmed 03/08/21 Last Taken 03/07/21] diltiazem HCl 180 mg capsule,extended release 24 hr 180 mg PO QDAY cap 08/20/20 [History Confirmed 03/08/21 Last Taken 03/08/21] formoterol fumarate 20 mcg/2 mL solution for nebulization 2 ml INHALATION BID ml 08/20/20 [History Confirmed 03/08/21 Last Taken 03/08/21] oxygen 08/20/20 [History Confirmed 03/08/21 Last Taken Unknown] diphenhydramine 25 mg-acetaminophen 500 mg tablet 1 tab PO QHS PRN 02/10/21 [History Confirmed 03/08/21 Last Taken 03/07/21] carboxymethylcellulose sodium 1 % eye liquid gel drops 1 drp OPHTHALMIC (EYE) BID PRN 02/13/21 [History Confirmed 03/08/21 Last Taken 03/08/21 08:00] dextromethorphan-guaifenesin 10 mg-100 mg/5 mL oral liquid (Robafen DM Cough) 10 ml PO Q4HP PRN #500 ml 02/16/21 [Rx Confirmed 03/08/21 Last Taken 03/07/21] fluconazole 200 mg tablet 400 mg PO QDAY #180 tab 03/02/21 [Rx Confirmed 03/08/21 Last Taken 03/08/21] guaifenesin 400 mg tablet (Mucus Relief) 400 mg PO QDAY tab 03/02/21 [History Confirmed 03/08/21 Last Taken 03/08/21 08:00] calcium carbonate 500 mg calcium (1,250 mg) tablet 500 mg PO QDAY #7 tab 03/10/21 [Rx Last Taken Unknown] COURSE Hospital Course Hospital course: History of present illness: Mr. Beatty is a 71 year old M Who was recently admitted in January for community-acquired pneumonia sepsis and acute exacerbation of COPD. He was discharged on the and was doing well afterwards and weaning off his oxygen and until about 3 days ago he became more short of breath and required oxygen more frequently. Had body aches chills denied fever. No change in his chronic cough. He is vaccinated and did get the booster. Minor care today and he was found to be sats in the I believe the mid 80s and had a positive COVID and was sent to the ED. He is on 2 L nasal cannula in the ED. Chest x-ray did not show anything new/acute. We will need a CT of the chest to further evaluate his hypoxia. 03/09 Feeling better today. On 1 L nasal cannula. Likely discharge tomorrow. 03/10: Reached clinical stability, decision made to discharge him home with Rx sent, follow up appointment made for him, and all questions were answered prior to patient being physically discharged. Discharge diagnosis: CoVID pneumonia, COPD exacerbation Time Spent with Patient Time attestation: Total time spent providing and/or coordinating discharge services: Time spent: Less than 30 minutes EXAM Constitutional Vitals: Temp Pulse Resp BP Pulse Ox 36.3 C 81 18 111/75 95 03/10/21 11:42 03/10/21 11:42 03/10/21 11:42 03/10/21 11:42 03/10/21 11:42 General appearance: cooperative and no acute distress Head Head exam: Present atraumatic and normocephalic Eye Eye exam: Present EOMI and PERRL ENT ENT exam: Present mucous membranes moist, normal exam and normal external ear exam Neck Neck exam: Present normal inspection; Absent lymphadenopathy, tenderness or thyromegaly Respiratory Respiratory exam: Absent accessory muscle use, respiratory distress, rhonchi or wheezes Cardiovascular Cardiovascular exam: Present normal rate and rhythm; Absent JVD GI/Abdominal GI/Abdominal exam: Present normal bowel sounds and soft; Absent organomegaly or tenderness Rectal Rectal exam: Present deferred Extremities Exam Extremities exam: Present full ROM, normal capillary refill and normal inspection; Absent tenderness Neurological Exam Neurological exam: Present alert, CN II-XII intact and oriented X3; Absent motor sensory deficit Psychiatric Psychiatric exam: Present normal affect and normal mood; Absent anxious or depressed Skin Skin exam: Present dry and intact Discharge Data Data Completed and Pending Labs on day of discharge: Labs from last 24 hours 03/10/21 07:45 Sodium 137 Potassium 4.4 Chloride 101 Carbon Dioxide 25 Anion Gap 11.0 BUN 22 Creatinine 0.7 GFR Calculation 96 Glucose 165 H Calcium 8.5 L Total Bilirubin < 0.2 AST 31 ALT 29 Alkaline Phosphatase 65 Total Protein 6.8 Albumin 3.5 Globulin 3.3 Albumin/Globulin Ratio 1.1 Discharge Plan Patient/Caregiver Discharge Instructions Activity: increase activity as tolerated Diet: Consistent Carbohydrate Instructions: Diabetes Mellitus Type 2 in Adults, Meat Puller (GEN), Diabetes Mellitus Type 1 in Children, Meat Puller (GEN) Prescriptions: New calcium carbonate 500 mg calcium (1,250 mg) tablet 500 mg PO QDAY Qty: 7 0RF Continued diltiazem HCl 180 mg capsule,extended release 24hr 180 mg PO QDAY 0RF budesonide 0.5 mg/2 mL suspension for nebulization 0.5 mg inhalation BID 0RF Label Comments: USE 2 ML VIA NEBULIZER TWICE DAILY. formoterol fumarate 20 mcg/2 mL solution for nebulization 2 ml inhalation BID 0RF Label Comments: USE 2 ML VIA NEBULIZER TWICE DAILY. (DME) oxygen See Rx Instructions .Route .MEDSUPPLY 0RF Rx Instructions: 2-4 liters at home prn to keep sats above 88% diphenhydramine-acetaminophen 25-500 mg tablet 1 tab PO QHS PRN (Reason: Sleep) 0RF guaifenesin [Mucus Relief] 400 mg tablet 400 mg PO QDAY 0RF fluconazole 200 mg tablet 400 mg PO QDAY Qty: 180 0RF Rx Instructions: Take 400 mg (2 200 mg tablets) orally each day for 3 months. ipratropium-albuterol 0.5 mg-3 mg(2.5 mg base)/3 mL solution for nebulization 3 ml INHALATION Q4H PRN (Reason: Shortness Of Breath Or Wheezing) 0RF Label Comments: USE 1 VIAL VIA NEBULIZATION FOUR TIMES DAILY simvastatin 10 mg tablet 5 mg PO QDAY 0RF Label Comments: TAKE 1/2 TABLET BY MOUTH EVERY NIGHT gabapentin 300 mg capsule 300 mg PO QDAY 0RF Label Comments: TAKE 1 CAPSULE BY MOUTH EVERY NIGHT albuterol sulfate 90 mcg/actuation HFA aerosol inhaler 2 puff INHALATION Q4H PRN (Reason: Shortness Of Breath Or Wheezing) 0RF Label Comments: INHALE 2 PUFFS INTO THE LUNGS FOUR TIMES DAILY AND EVERY 4 HOURS NEEDED Eliquis 5 mg tablet 5 mg PO BID Qty: 60 0RF carboxymethylcellulose sodium 1 % Drops, Liquid Gel 1 drp OPHTHALMIC (EYE) BID PRN (Reason: Dry Eyes) 0RF dextromethorphan-guaifenesin [Robafen DM Cough] 10-100 mg/5 mL Liquid 10 ml PO Q4HP PRN (Reason: Cough) Qty: 500 0RF Follow Up Plan Follow up with: Enoch Espinal MD [Primary Care Provider] - Patient Disposition: Home, Self-Care Rehab Potential: Good I certify that the patient requires SNF services: No Overall status at discharge: patient is back to baseline Discharge Orders: Discharge Order (Routine); Ordered 03/10/21 Ordered By: Gustavo Blanca
[2021-03-10] MEDS: FLUCONAZOLE 100 MG TABLET PO SCH (12:45)
[2021-03-10] MEDS: guaiFENesin 600 MG TAB.SR.12H PO SCH (12:45)
[2021-03-10] MEDS: APIXABAN 5 MG TABLET PO SCH (12:46)
[2021-03-10] MEDS: SIMVASTATIN 10 MG TABLET PO SCH (12:46)
[2021-03-10] MEDS: GABAPENTIN 300 MG CAPSULE PO SCH (12:46)
[2021-03-10] MEDS: DILTIAZEM 180 MG CAP.XL.24H PO SCH (12:46)
[2021-03-10] MEDS: DOCUSATE SODIUM 100 MG CAPSULE PO SCH (12:46)
[2021-03-10] MEDS: FORMOTEROL FUMARATE 20 MCG/2 ML INH SCH (12:47)
[2021-03-10] MEDS: methylPREDNISolone SOD SUCC 40 MG/ML VIAL IV SCH (12:47)
[2021-03-10] MEDS: REMDESIVIR 100 MG in 0.9 % SODIUM CHLORIDE 250 ML IV SCH (12:54)
== END 2021-03-10 16:00 | disposition home or self-care (01) | DRG 177 ==
LOC: ED 13:37 → MEDSUR 18:00
PROVIDERS: ADMIT Internal Medicine; ATTEND Internal Medicine